=== PATIENT | male | born 1950 | race Caucasian/White ===

== ENCOUNTER 2016-02-08 17:17 | Inpatient (IN) | payer MEDICARE, BC ==
--- NOTE | 2016-02-08 18:03 | ED ---
General Adult HPI - General Chief complaint: Weakness Stated complaint: Weakness Time Seen by Provider: 02/08/16 17:20 Source: EMS, RN notes reviewed Mode of arrival: EMS Limitations: no limitations - History of Present Illness Initial comments: This is a 65-year-old male who has a past medical history significant for prosthetic leg on the left and irritation of the toes on the right he also has a history of renal failure and is on dialysis. Patient states This morning went to dialysis and after he got out of dialysis he was unable to stand he felt so weak he couldn't get around. Patient denies headache patient denies any numbness or weakness focally. Patient denies any chest pain difficulty breathing or shortness of breath per patient denies any dizziness lightheadedness or near syncopal episode. Patient denies any abdominal pain patient denies any nausea vomiting or diarrhea. Patient denies any recent injury or trauma. Patient states he does have a wound on the posterior aspect of his heel and he was going to the wound center but he has not been able to follow-up with them recently. Patient states it is swelling quite gamy. - Related Data Home Medications Medication Instructions Recorded Confirmed Furosemide 40 mg PO BID 02/18/14 02/08/16 Lisinopril 5 mg PO DAILY 02/18/14 02/08/16 HYDROcodone/APAP 5-325MG [[place] 1 tab PO BID PRN 02/08/16 02/08/16 5-325] Metoprolol Tartrate [Lopressor] 25 mg PO DAILY 02/08/16 02/08/16 Allergies Allergy/AdvReac Type Severity Reaction Status Date / Time No Known Allergies Allergy Verified 02/08/16 17:39 Review of Systems ROS Statement: Those systems with pertinent positive or pertinent negative responses have been documented in the HPI. ROS Other: All systems not noted in ROS Statement are negative. Past Medical History Past Medical History: Diabetes Mellitus, Dialysis, Hypertension, Liver Disease, Renal Disease, Vascular Disorder Additional Past Medical History / Comment(s): Other HX: Hemodialysis. 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 History of Any Multi-Drug Resistant Organisms: None Reported Past Surgical History: Adenoidectomy, Orthopedic Surgery, Tonsillectomy Additional Past Surgical History / Comment(s): L BKA, R foot toes all amputated by Dr. Dee. Fistula L forearm for hemodialysis Past Anesthesia/Blood Transfusion Reactions: No Reported Reaction Past Psychological History: No Psychological Hx Reported Additional Psychological History / Comment(s): Pt lives alone in home. He has a L lower leg prosthesis. Smoking Status: Never smoker Past Alcohol Use History: None Reported Past Drug Use History: None Reported - Past Family History Father Family Medical History: Coronary Artery Disease (CAD) Additional Family Medical History / Comment(s): Father is . He lived to the age of 90 yrs. Mother Family Medical History: No Reported History Additional Family Medical History / Comment(s): Mother is . She lived to the age of 87 yrs. General Exam - General Exam Comments Initial Comments: GENERAL: Patient is well-developed and well-nourished. Patient is nontoxic and well- hydrated and is in no acute distress. ENT: Neck is soft and supple. No significant lymphadenopathy is noted. Oropharynx is clear. Moist mucous membranes. Neck has full range of motion without eliciting any pain. EYES: The sclera were anicteric and conjunctiva were pink and moist. Extraocular movements were intact and pupils were equal round and reactive to light. Eyelids were unremarkable. PULMONARY: Unlabored respirations. Good breath sounds bilaterally. No audible rales rhonchi or wheezing was noted. CARDIOVASCULAR: There is a regular rate and rhythm without any murmurs gallops or rubs. ABDOMEN: Soft and nontender with normal bowel sounds. No palpable organomegaly was noted. There is no palpable pulsatile mass. SKIN: Skin is clear with no lesions or rashes and otherwise unremarkable. NEUROLOGIC: Patient is alert and oriented x3. Cranial nerves II through XII are grossly intact. Motor and sensory are also intact. Normal speech, volume and content. Symmetrical smile. MUSCULOSKELETAL: Patient has a prosthetic left leg and has no dose on the right foot. Patient also has a decubitus wound on the right heel which appears to have necrotic tissue in it as well as erythema around it. LYMPHATICS: No significant lymphadenopathy is noted PSYCHIATRIC: Normal psychiatric evaluation. Normal interpersonal interactions appears functionally intact in deals appropriately with others. Limitations: no limitations Course Vital Signs 02/08/16 02/08/16 17:18 19:32 Temperature 99.1 F Pulse Rate 83 79 Respiratory 18 18 Rate Blood Pressure 160/82 151/82 O2 Sat by Pulse 95 97 Oximetry Medical Decision Making - Medical Decision Making EKG shows atrial fibrillation at 79 bpm QRS is 166 QT intervals 446 QTC is 511. Patient has left bundle branch block Started patient on vancomycin because the wound appeared necrotic with some associated cellulitis. X-ray did not show any indication of a osteomyelitis I spoke with Dr. Tan and he agreed to accept the patient admitted the patient wrote admitting orders continue vancomycin for - Lab Data Result diagrams: 02/08/16 18:17 02/08/16 18:17 Lab Results 02/08/16 02/08/16 02/08/16 Range/Units 18:03 18:17 18:17 WBC 6.7 (3.8-10.6) k/uL RBC 3.48 L (4.30-5.90) m/uL Hgb 10.7 L (13.0-17.5) gm/dL Hct 32.5 L (39.0-53.0) % MCV 93.2 (80.0-100.0) fL MCH 30.7 (25.0-35.0) pg MCHC 32.9 (31.0-37.0) g/dL RDW 13.2 (11.5-15.5) % Plt Count 173 (150-450) k/uL Neutrophils % 86 % Lymphocytes % 6 % Monocytes % 6 % Eosinophils % 1 % Basophils % 0 % Neutrophils # 5.8 (1.3-7.7) k/uL Lymphocytes # 0.4 L (1.0-4.8) k/uL Monocytes # 0.4 (0-1.0) k/uL Eosinophils # 0.1 (0-0.7) k/uL Basophils # 0.0 (0-0.2) k/uL PT (9.0-12.0) sec INR (<1.1) APTT (22.0-30.0) sec Sodium (137-145) mmol/L Potassium (3.5-5.1) mmol/L Chloride (98-107) mmol/L Carbon Dioxide (22-30) mmol/L Anion Gap mmol/L BUN (9-20) mg/dL Creatinine (0.66-1.25) mg/dL Est GFR (MDRD) Af Amer (>60 ml/min/1.73 sqM) Est GFR (MDRD) Non-Af (>60 ml/min/1.73 sqM) Glucose (74-99) mg/dL POC Glucose (mg/dL) 142 H (75-99) mg/dL POC Glu Back Facer ID Branch, Alexander Plasma Lactic Acid Justice (0.7-2.0) mmol/L Calcium (8.4-10.2) mg/dL Magnesium (1.6-2.3) mg/dL Total Bilirubin (0.2-1.3) mg/dL AST (17-59) U/L ALT (21-72) U/L Alkaline Phosphatase (38-126) U/L Total Creatine Kinase 44 L (55-170) U/L CK-MB (CK-2) 1.3 (0.0-2.4) ng/mL CK-MB (CK-2) Rel Index 3.0 Troponin I 0.063 H* (0.000-0.034) ng/mL Total Protein (6.3-8.2) g/dL Albumin (3.5-5.0) g/dL 02/08/16 02/08/16 02/08/16 Range/Units 18:17 18:17 18:17 WBC (3.8-10.6) k/uL RBC (4.30-5.90) m/uL Hgb (13.0-17.5) gm/dL Hct (39.0-53.0) % MCV (80.0-100.0) fL MCH (25.0-35.0) pg MCHC (31.0-37.0) g/dL RDW (11.5-15.5) % Plt Count (150-450) k/uL Neutrophils % % Lymphocytes % % Monocytes % % Eosinophils % % Basophils % % Neutrophils # (1.3-7.7) k/uL Lymphocytes # (1.0-4.8) k/uL Monocytes # (0-1.0) k/uL Eosinophils # (0-0.7) k/uL Basophils # (0-0.2) k/uL PT 13.8 H (9.0-12.0) sec INR 1.4 (<1.1) APTT 27.2 (22.0-30.0) sec Sodium 137 (137-145) mmol/L Potassium 3.2 L (3.5-5.1) mmol/L Chloride 95 L (98-107) mmol/L Carbon Dioxide 29 (22-30) mmol/L Anion Gap 13 mmol/L BUN 18 (9-20) mg/dL Creatinine 3.63 H (0.66-1.25) mg/dL Est GFR (MDRD) Af Amer 21 (>60 ml/min/1.73 sqM) Est GFR (MDRD) Non-Af 17 (>60 ml/min/1.73 sqM) Glucose 156 H (74-99) mg/dL POC Glucose (mg/dL) (75-99) mg/dL POC Glu Back Facer ID Plasma Lactic Acid Justice 3.6 H* (0.7-2.0) mmol/L Calcium 9.2 (8.4-10.2) mg/dL Magnesium 1.9 (1.6-2.3) mg/dL Total Bilirubin 1.2 (0.2-1.3) mg/dL AST 22 (17-59) U/L ALT 24 (21-72) U/L Alkaline Phosphatase 139 H (38-126) U/L Total Creatine Kinase (55-170) U/L CK-MB (CK-2) (0.0-2.4) ng/mL CK-MB (CK-2) Rel Index Troponin I (0.000-0.034) ng/mL Total Protein 6.6 (6.3-8.2) g/dL Albumin 3.2 L (3.5-5.0) g/dL Disposition Clinical Impression: Generalized weakness, Infected decubitus ulcer, Chronic renal failure Disposition: ADMITTED IP TO THIS HOSP Referrals: Chiquis Leyva MD [Primary Care Provider] - 1-2 days Time of Disposition: 20:28
[2016-02-08 18:05] LABS: Glucose,Whole Blood 142 mg/dL (75-99)
--- NOTE | 2016-02-08 18:46 | XR ---
EXAMINATION TYPE: XR chest 2V DATE OF EXAM: 02/08/2016 6:37 PM COMPARISON: 03/17/2015 HISTORY: Cough and weakness TECHNIQUE: Frontal and lateral views of the chest are obtained. FINDINGS: There is opacification of the right lower hemithorax consistent with consolidation and ple ural fluid. There is mild pulmonary congestion. There is a right central venous catheter with tip in the superior vena cava. Left lung is clear of consolidation. Heart appears enlarged. IMPRESSION: There is chronic right pleural effusion and right lower lobe consolidation that is sligh tly worse than last exam. There is probably mild heart failure. Pulmonary vascularity is increased co mpared to last exam.
--- NOTE | 2016-02-08 18:48 | XR ---
EXAMINATION TYPE: XR foot complete RT DATE OF EXAM: 02/08/2016 6:37 PM COMPARISON: 09/07/2010 HISTORY: Foot pain nonhealing wounds TECHNIQUE: 3 views FINDINGS: There is amputation deformity of all of the digits at the level of the mid shaft of the met atarsals. There is atherosclerotic vascular calcification. There are plantar and Achilles calcaneal s purs. I see no focal bone destruction. IMPRESSION: Multiple amputations. No specific evidence of osteomyelitis. Significant calcaneal spurri ng.
[2016-02-08 18:59] LABS: Basophils % (A) 0 %; CHCM 33.4; Eosinophils # (A) 0.1 k/uL (0-0.7); Eosinophils % (A) 1 %; HCT 32.5 % (39.0-53.0); HDW 2.24; HGB 10.7 gm/dL (13.0-17.5); Luc # (Auto) 0.08; Luc % (Auto) 1; Lymphocytes # (A) 0.4 k/uL (1.0-4.8); Lymphocytes % (A) 6 %; MCH 30.7 pg (25.0-35.0); MCHC 32.9 g/dL (31.0-37.0); MCV 93.2 fL (80.0-100.0); Mean Platelet Volume 8.2; Monocytes # (A) 0.4 k/uL (0-1.0); Monocytes % (A) 6 %; Neutrophils # (A) 5.8 k/uL (1.3-7.7); Neutrophils % (A) 86 %; RBC 3.48 m/uL (4.30-5.90); RDW 13.2 % (11.5-15.5); WBC 6.7 k/uL (3.8-10.6); WBC (Perox) 7.02
[2016-02-08 19:08] LABS: INR 1.4 (<1.1); Partial Thromboplastin Time 27.2 sec (22.0-30.0); Prothrombin Time 13.8 sec (9.0-12.0)
[2016-02-08 19:11] LABS: Calcium 9.2 mg/dL (8.4-10.2); Magnesium 1.9 mg/dL (1.6-2.3); Potassium 3.2 mmol/L (3.5-5.1); Total Bilirubin 1.2 mg/dL (0.2-1.3); Total Protein 6.6 g/dL (6.3-8.2)
[2016-02-08 19:41] LABS: Creatine Kinase MB 1.3 ng/mL (0.0-2.4)
[2016-02-08 19:50] LABS: Troponin I 0.063 ng/mL (0.000-0.034)
[2016-02-08] MEDS ORDERED: SODIUM CHLORIDE 0.9% 1,000 ML IV ONE (20:29)
[2016-02-08] MEDS ORDERED: IV VANCOMYCIN PER PHARMACY 1 EACH MISC MISCELLANE PRN (20:32)
[2016-02-08] MEDS ORDERED: VANCOMYCIN 1,500 MG in SODIUM CHLORIDE 0.9% 250 ML IVPB STA (20:33)
[2016-02-08] MEDS ORDERED: SODIUM CHLORIDE 0.9% 500 ML IV ONE (20:34)
[2016-02-08 22:59] LABS: Glucose,Whole Blood 109 mg/dL (75-99)
[2016-02-09] MEDS ORDERED: HYDROcodone/APAP 5-325MG 1 EACH TAB PO PRN (02:58)
[2016-02-09 07:09] LABS: Glucose,Whole Blood 135 mg/dL (75-99)
[2016-02-09 07:50] LABS: Basophils % (A) 1 %; CH 30.6; CHCM 31.8; Eosinophils % (A) 1 %; HDW 2.18; HGB 10.4 gm/dL (13.0-17.5); Luc # (Auto) 0.07; Luc % (Auto) 1; Lymphocytes # (A) 0.4 k/uL (1.0-4.8); Lymphocytes % (A) 6 %; MCH 29.5 pg (25.0-35.0); MCHC 30.4 g/dL (31.0-37.0); MCV 96.9 fL (80.0-100.0); Mean Platelet Volume 8.3; Monocytes # (A) 0.5 k/uL (0-1.0); Monocytes % (A) 7 %; Neutrophils # (A) 5.4 k/uL (1.3-7.7); Neutrophils % (A) 85 %; RBC 3.51 m/uL (4.30-5.90); RDW 13.2 % (11.5-15.5); WBC 6.4 k/uL (3.8-10.6); WBC (Perox) 6.83
[2016-02-09 08:09] LABS: Calcium 9.1 mg/dL (8.4-10.2); Potassium 3.2 mmol/L (3.5-5.1)
[2016-02-09] MEDS: INSULIN LISPRO (humaLOG) 300 UNIT/3 ML VIAL SQ SCH ×4 (08:15→21:51)
[2016-02-09 08:29] LABS: Hemoglobin A1C 5.7 % (4.2-6.1)
[2016-02-09] MEDS ORDERED: POTASSIUM CHLORIDE ER 20 MEQ TAB.ER PO STA (09:51)
--- NOTE | 2016-02-09 10:33 | P.NPCON ---
History of Present Illness - Reason for Consult end stage renal disease - History of Present Illness Reason for consultation: End-stage renal disease History of present illness: Patient is a 65-year-old male seen in renal consultation for end- stage renal disease. He is maintained on hemodialysis on a Sunday schedule. He underwent hemodialysis yesterday. After the treatment he felt quite weak and states his legs gave out. He was therefore brought to the hospital. He denies any chest pain or shortness of breath. He is noted to have a right heel ulcer for which she's currently receiving antibiotics. He denies any vomiting or diarrhea. Appetite is fair. Hemoglobin is stable. Hemodynamically also stable. Denies any active complaints at this time. Vital signs are stable. General: The patient appeared well nourished and normally developed. HEENT: Head exam is unremarkable. Neck is without jugular venous distension. LUNGS: Lungs are clear to auscultation and percussion. Breath sounds decreased. HEART: Rate and Rhythm are regular. First and second heart sounds normal. No murmurs, rubs or gallops. ABDOMEN: Abdominal exam reveals normal bowel sounds. Non-tender and non- distended. No evidence of peritonitis. EXTREMITITES: No clubbing, cyanosis, or edema. Amputation noted. No obvious drainage. Past Medical History Past Medical History: Diabetes Mellitus, Dialysis, Hypertension, Liver Disease, Renal Disease, Vascular Disorder Additional Past Medical History / Comment(s): Other HX: Hemodialysis. 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 History of Any Multi-Drug Resistant Organisms: None Reported Past Surgical History: Adenoidectomy, Orthopedic Surgery, Tonsillectomy Additional Past Surgical History / Comment(s): L BKA, R foot toes all amputated by Dr. Dee. Fistula L forearm for hemodialysis Past Anesthesia/Blood Transfusion Reactions: No Reported Reaction Past Psychological History: No Psychological Hx Reported Additional Psychological History / Comment(s): Pt lives alone in home. He has a L lower leg prosthesis. Smoking Status: Never smoker Past Alcohol Use History: None Reported Past Drug Use History: None Reported - Past Family History Father Family Medical History: Coronary Artery Disease (CAD) Additional Family Medical History / Comment(s): Father is . He lived to the age of 90 yrs. Mother Family Medical History: No Reported History Additional Family Medical History / Comment(s): Mother is . She lived to the age of 87 yrs. Medications and Allergies Home Medications Medication Instructions Recorded Confirmed Type Furosemide 40 mg PO BID 02/18/14 02/08/16 History Lisinopril 5 mg PO DAILY 02/18/14 02/08/16 History HYDROcodone/APAP 5-325MG [[place] 1 tab PO BID PRN 02/08/16 02/08/16 History 5-325] Metoprolol Tartrate [Lopressor] 25 mg PO DAILY 02/08/16 02/08/16 History Allergies Allergy/AdvReac Type Severity Reaction Status Date / Time No Known Allergies Allergy Verified 02/08/16 17:39 Physical Exam Vitals: Vital Signs Temp Pulse Pulse Resp BP BP Pulse Ox 02/09/16 07:12 95 02/09/16 07:00 97.0 F L 80 20 127/71 94 L 02/08/16 22:45 97.9 F 74 16 138/81 96 02/08/16 21:21 98.9 F 76 18 143/70 95 Intake and Output 02/08/16 02/09/16 02/09/16 22:59 06:59 14:59 Intake Total 1500 120 Balance 1500 120 Intake: IV 1500 Vancomycin 1,500 mg In 1500 Sodium Chloride 0.9% 250 ml @ 125 mls/hr IVPB ONCE STA Rx#:[id number] Oral 120 Other: # Voids 0 # Bowel Movements 0 Weight 83.007 kg Results - Lab Results Most recent lab results Calcium 9.1 mg/dL (8.4-10.2) 02/09/16 07:13 Magnesium 1.9 mg/dL (1.6-2.3) 02/08/16 18:17 02/09/16 07:13 02/09/16 07:13 Assessment and Plan Plan: Assessment: #1. End-stage renal disease maintained on hemodialysis on a Sunday schedule. #2. Hypokalemia. #3. Right foot ulcer. #4. Anemia of chronic kidney disease. Plan: Hemodialysis tomorrow. Replace potassium. 20 mg once today. Check phosphorus level. Nephrocaps daily. Antibiotics per infectious disease recommendations. . I will continue to follow the patient with you during his hospital stay.
[2016-02-09] MEDS: FOLIC ACID-VIT B COMPLEX-VIT C 1 CAP PO SCH (10:46)
[2016-02-09 12:34] LABS: Glucose,Whole Blood 123 mg/dL (75-99)
[2016-02-09] MEDS ORDERED: FUROSEMIDE 10 MG/ML 4 ML VIAL IV STA (13:48)
[2016-02-09] MEDS ORDERED: FUROSEMIDE 10 MG/ML 10 ML VIAL IV STA (13:48)
[2016-02-09 16:54] LABS: Glucose,Whole Blood 186 mg/dL (75-99)
[2016-02-09] MEDS ORDERED: CALCIUM CARBONATE 500 MG CHEWABLE PO PRN (17:37)
[2016-02-09] MEDS: FUROSEMIDE 40 MG TAB PO SCH (17:48)
[2016-02-09] MEDS: CALCIUM CARBONATE 500 MG CHEWABLE PO PRN (18:07)
[2016-02-09] MEDS: METOPROLOL TARTRATE 25 MG TAB PO SCH (20:01)
[2016-02-09] MEDS: LISINOPRIL 5 MG TAB PO SCH (20:01)
[2016-02-09] MEDS ORDERED: AMPICILLIN-SULBACTAM 1.5 GM in SODIUM CHLORIDE 0.9% 50 ML IVPB SCH (21:00)
--- NOTE | 2016-02-09 21:04 | HP ---
DATE OF ADMISSION: 02/09/2016 The patient is a 65-year-old with endstage renal disease on hemodialysis, was brought in by his because the patient is feeling quite weak and the patient was found to have pulmonary edema on the chest x-ray. The patient has an ejection fraction of 30% to 35%. The patient is on 40 of IV oral b.i.d. of Lasix. Still makes urine. The patient has end stage renal disease, hemodialysis-dependent. Patient was evaluated by Dr. Coffman ). The patient was actually admitted because the patient was found to have right foot infection. Patient has midfoot amputation. The patient has an ulcer about stage 3 to 4 decubitus ulcer. Foot x-ray did not show any osteomyelitis. The patient was admitted for foot infection. Patient has had diabetic foot infections in the past. Patient has a left below-knee amputation and right midfoot amputation. The patient normally ambulates with a prostheses on the right side. Patient denied any chest pain. Patient denied any nausea or vomiting. Patient denied any fevers or chills. Patient denied any significant shortness of breath. Denied orthopnea or PND, although chest x-ray, as mentioned above, did show a significant pulmonary edema. Denied any lightheadedness. REVIEW OF SYSTEMS: CONSTITUTIONAL: As per HPI. HEENT: No recent visual problems or hearing problems. Denied any sore throat. CARDIOVASCULAR: No chest pain, orthopnea, PND, no palpitations, no syncope. PULMONARY: No shortness of breath, no cough, no hemoptysis. GASTROINTESTINAL: No diarrhea, no nausea, no vomiting, no abdominal pain. Normoactive bowel sounds. NEUROLOGICAL: No headaches, no weakness, no numbness. HEMATOLOGICAL: Denies any bleeding or petechiae. GENITOURINARY: Denies any burning micturition, frequency, or urgency. MUSCULOSKELETAL/RHEUMATOLOGICAL: Denies any joint pain, swelling, or any muscle pain. ENDOCRINE: Denies any polyuria or polydipsia. The rest of the 14 point review of systems is negative. Home medications include: 1. Lasix. 2. Lisinopril. 3. Hydrocodone. 4. Acetaminophen. 5. Metoprolol. PAST MEDICAL HISTORY: Type 2 diabetes mellitus, diabetic nephropathy, endstage renal disease, hemodialysis-dependent, congestive heart failure, chronic systolic dysfunction with ejection fraction around 30% to 35%, hypertension, peripheral vascular disease with left below-knee amputation and right midfoot amputation, fistula in the left arm, adenoidectomy, ( ) surgery, tonsillectomy. SOCIAL HISTORY: Denies smoking, alcohol abuse or any drug abuse. FAMILY HISTORY: Father had coronary artery disease and at age 90. Mother had no reported history. PHYSICAL EXAMINATION: Temperature 97.9, pulse ox 93, respiratory rate of 24, blood pressure is 138/78, saturating at 93% on room air. CARDIOVASCULAR: S1 and S2 present. Patient has minimally elevated JVD. LUNGS: Bibasilar crackles were appreciated. No wheezing was appreciated. DERMATOLOGIC: The patient has stage 3 to 4 decubitus ulcer in the right heel plantar surface area with redness and foul-smelling discharge for which wound cultures were obtained, with redness extending proximally and distally as well a few centimeters proximal and distal, with localized temperature. NEUROLOGICAL: Gross neurological examination. Did not reveal any focal deficits. SKIN: No rashes. LABORATORY DATA: CBC abnormal for mildly low hemoglobin of 10.4, normocytic anemia, probably anemia of chronic kidney disease. Potassium of 3.2, chloride of 96, BUN of 21, creatinine 4.4. Troponins are mildly elevated at 0.063 and 0.087, secondary to endstage renal disease without any chest pain or any significant EKG changes. ASSESSMENT AND PLAN: 1. Generalized weakness and fatigue is probably because of infection and sepsis from right foot infection as mentioned above. 2. Decubitus ulcer which appears to be infected and patient is on vancomycin. May need gram-negative as well. Patient is already on vancomycin. I added Unasyn to his regimen with the pharmacy to dose. Wound cultures are actually showing gram-negative bacilli as well. Infectious disease was consulted. 3. Endstage renal disease, hemodialysis-dependent. 4. Congestive heart failure, chronic systolic dysfunction, ejection fraction of around 35% with a mild acute exacerbation. Will give an additional dose of Lasix and patient will continue with his home dose of Lasix. We will also get nephrology opinion regarding that. 5. Diabetes mellitus type 2. 6. Diabetic nephropathy and neuropathy. 7. Peripheral vascular disease with amputations as mentioned above. 8. Hypertension. For above-mentioned chronic medical problems, I will go ahead and continue his home medications including lisinopril. For mild hypokalemia, let nephrology manage that since he is an end-stage renal disease patient.
[2016-02-09 21:51] LABS: Glucose,Whole Blood 74 mg/dL (75-99)
--- NOTE | 2016-02-09 22:07 | P.CONS ---
History of Present Illness - Reason for Consult Consult date: 02/09/16 - Chief Complaint Right foot infection - History of Present Illness 65-year-old male who has a complex medical history including end- stage renal disease with diabetes mellitus type 2 and severe peripheral vascular disease. 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 He's been followed in the outpatient setting in the wound healing center with podiatry and vascular surgery. He now has a marked worsening to the right foot at the heel. There is been a dry gangrenous area that is now much worse, it is malodorous, with swelling and extension of the erythema and fluctuance around the eschar. The patient is ill. Did not tolerate dialysis well. Developed fever, chills and rigors. Also some hypotension and was brought into hospital. Because of the significant infection to the right foot the infectious diseases consultation was requested The patient has had recent chills and is feeling slightly better. Has not been able to eat. Review of Systems HEENT:Denies headache or has poor vision. Denies sinus or mouth discomforts. Denies neck stiffness or pain. Denies significant oral cavity pain. Denies difficulty on swallowing. Lungs: Denies significant shortness of breath, cough, sputum production, or hemoptysis. Cardiovascular: Denies significant shortness of breath, chest pain, chest wall pain, orthopnea, dyspnea on exertion, syncope Gastrointestinal:Denies nausea, vomiting, diarrhea, constipation, hematemesis, melena, hematochezia. No no significant change of bowel habit noticed. Musculoskeletal: Is evidence of the difficulty with the multiple ulcers but the residual limb to the left was without acute abnormality Skin: As per the HPI Neuro: Denies headache or visual change. Denies any new onset weakness or difficulty with ambulation. Denies falls or seizures. Psychiatric:Denies anxiety or depression. Endocrine: Increasing fatigue and has been having difficulties with weight loss despite his dialysis Past Medical History Past Medical History: Diabetes Mellitus, Dialysis, Hypertension, Liver Disease, Renal Disease, Vascular Disorder Additional Past Medical History / Comment(s): Other HX: Hemodialysis. 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 History of Any Multi-Drug Resistant Organisms: None Reported Past Surgical History: Adenoidectomy, Orthopedic Surgery, Tonsillectomy Additional Past Surgical History / Comment(s): L BKA, R foot toes all amputated by Dr. Dee. Fistula L forearm for hemodialysis Past Anesthesia/Blood Transfusion Reactions: No Reported Reaction Past Psychological History: No Psychological Hx Reported Additional Psychological History / Comment(s): Pt lives alone in home. He has a L lower leg prosthesis. Smoking Status: Never smoker Past Alcohol Use History: None Reported Past Drug Use History: None Reported - Past Family History Father Family Medical History: Coronary Artery Disease (CAD) Additional Family Medical History / Comment(s): Father is . He lived to the age of 90 yrs. Mother Family Medical History: No Reported History Additional Family Medical History / Comment(s): Mother is . She lived to the age of 87 yrs. Medications and Allergies Home Medications and Allergies Comment(s): Current Medications Acetaminophen/Hydrocodone Bitart ([place] 5-325) 1 each PO BID PRN PRN Reason: Pain Calcium Carbonate/Glycine (Tums) 1,000 mg PO TID PRN PRN Reason: Heartburn Last Admin: 02/09/16 18:07 Dose: 1,000 mg Furosemide (Lasix) 40 mg PO BID@0900,1600 [facility] Last Admin: 02/09/16 17:48 Dose: 40 mg Vancomycin HCl 1,500 mg/ (Sodium Chloride) 250 mls @ 125 mls/hr IVPB ONCE ONE Stop: 02/10/16 07:59 Ampicillin Sodium/Sulbactam (Sodium 1.5 gm/ Sodium Chloride) 50 mls @ 100 mls/ hr IVPB Q12HR [facility] Last Admin: 02/09/16 19:58 Dose: 100 mls/hr Insulin Human Lispro (Humalog) 0 unit SQ ACHS [facility] PRN Reason: Protocol Last Admin: 02/09/16 21:51 Dose: Not Given Lisinopril (Zestril) 5 mg PO [facility] Last Admin: 02/09/16 20:01 Dose: 5 mg Metoprolol Tartrate (Lopressor) 25 mg PO [facility] Last Admin: 02/09/16 20:01 Dose: 25 mg Miscellaneous Information (Pharmacy To Dose Iv Vancomycin) 1 each MISCELLANE DIRECTED PRN PRN Reason: Per Protocol Multivit/Ca Carb/B Cmplx/FA/Prenat (Nephrocaps) 1 each PO DAILY [facility] Last Admin: 02/09/16 10:46 Dose: 1 each Home Medications Medication Instructions Recorded Confirmed Type Furosemide 40 mg PO BID 02/18/14 02/08/16 History Lisinopril 5 mg PO DAILY 02/18/14 02/08/16 History HYDROcodone/APAP 5-325MG [[place] 1 tab PO BID PRN 02/08/16 02/08/16 History 5-325] Metoprolol Tartrate [Lopressor] 25 mg PO DAILY 02/08/16 02/08/16 History Allergies Allergy/AdvReac Type Severity Reaction Status Date / Time No Known Allergies Allergy Verified 02/08/16 17:39 Physical Exam Vitals: Vital Signs Temp Pulse Resp BP Pulse Ox 02/09/16 15:00 97.9 F 73 24 138/78 93 L 02/09/16 07:12 95 02/09/16 07:00 97.0 F L 80 20 127/71 94 L 02/08/16 22:45 97.9 F 74 16 138/81 96 Intake and Output 02/09/16 02/09/16 02/09/16 06:59 14:59 22:59 Intake Total 1500 240 Balance 1500 240 Intake: IV 1500 Vancomycin 1,500 mg In 1500 Sodium Chloride 0.9% 250 ml @ 125 mls/hr IVPB ONCE STA Rx#:[id number] Oral 240 Other: # Voids 0 # Bowel Movements 0 0 Weight 83.007 kg 83.007 kg Patient Weight 02/10/16 06:59 Weight 83.007 kg 65-year-old male of thin build who seems to be uncomfortable. Has had recent chill and fever. HEENT: Anicteric conjunctiva are pink and moist nasal mucosa grossly intact without significant lesions, there is no thrush. Full denture Neck: The neck is supple without significant lymphadenopathy or thyromegaly. Lungs: Symmetric air entry without expiratory wheezes no vicky bronchial sounds dialysis catheter right anterior chest wall noted Heart: Irregular with an audible S1 and S2 no S3 soft S4 no murmur click or rub Abdomen: Positive bowel sounds soft and nontender without palpable masses or organomegaly. There was no guarding or rebound. Extremities: Upper extremities since of the fistula left arm that isn't functioning well. Right arm without abnormalities. Left lower extremities shows evidence of the biliary amputation with residual limb intact. Right foot shows evidence of the marked changes to the foot at the heel there is distinct eschar there is distinct discoloration around the eschar there is foul odor and some induration and early fluctuance. No steady and drainage is seen. There is scant warmth to the site. Poor peripheral pulses Neuro: Awake alert oriented to person place and time. Results CBC & Chem 7: 02/09/16 07:13 02/09/16 07:13 Labs: Abnormal Lab Results - Last 24 Hours (Table) 02/08/16 02/09/16 02/09/16 Range/Units 22:38 07:06 07:13 RBC 3.51 L (4.30-5.90) m/uL Hgb 10.4 L (13.0-17.5) gm/dL Hct 34.0 L (39.0-53.0) % MCHC 30.4 L (31.0-37.0) g/dL Lymphocytes # 0.4 L (1.0-4.8) k/uL Potassium (3.5-5.1) mmol/L Chloride (98-107) mmol/L BUN (9-20) mg/dL Creatinine (0.66-1.25) mg/dL Glucose (74-99) mg/dL POC Glucose (mg/dL) 109 H 135 H (75-99) mg/dL Troponin I (0.000-0.034) ng/mL 02/09/16 02/09/16 02/09/16 Range/Units 07:13 07:13 12:30 RBC (4.30-5.90) m/uL Hgb (13.0-17.5) gm/dL Hct (39.0-53.0) % MCHC (31.0-37.0) g/dL Lymphocytes # (1.0-4.8) k/uL Potassium 3.2 L (3.5-5.1) mmol/L Chloride 96 L (98-107) mmol/L BUN 21 H (9-20) mg/dL Creatinine 4.40 H (0.66-1.25) mg/dL Glucose 144 H (74-99) mg/dL POC Glucose (mg/dL) 123 H (75-99) mg/dL Troponin I 0.087 H* (0.000-0.034) ng/mL 02/09/16 02/09/16 02/09/16 Range/Units 16:52 17:40 21:49 RBC (4.30-5.90) m/uL Hgb (13.0-17.5) gm/dL Hct (39.0-53.0) % MCHC (31.0-37.0) g/dL Lymphocytes # (1.0-4.8) k/uL Potassium (3.5-5.1) mmol/L Chloride (98-107) mmol/L BUN (9-20) mg/dL Creatinine (0.66-1.25) mg/dL Glucose (74-99) mg/dL POC Glucose (mg/dL) 186 H 74 L (75-99) mg/dL Troponin I 0.076 H* (0.000-0.034) ng/mL Laboratory Results WBC 6.4 k/uL (3.8-10.6) 02/09/16 07:13 RBC 3.51 m/uL (4.30-5.90) L 02/09/16 07:13 Hgb 10.4 gm/dL (13.0-17.5) L 02/09/16 07:13 Hct 34.0 % (39.0-53.0) L 02/09/16 07:13 MCV 96.9 fL (80.0-100.0) 02/09/16 07:13 MCH 29.5 pg (25.0-35.0) 02/09/16 07:13 MCHC 30.4 g/dL (31.0-37.0) L 02/09/16 07:13 RDW 13.2 % (11.5-15.5) 02/09/16 07:13 Plt Count 180 k/uL (150-450) 02/09/16 07:13 Neutrophils % 85 % 02/09/16 07:13 Lymphocytes % 6 % 02/09/16 07:13 Monocytes % 7 % 02/09/16 07:13 Eosinophils % 1 % 02/09/16 07:13 Basophils % 1 % 02/09/16 07:13 Neutrophils # 5.4 k/uL (1.3-7.7) 02/09/16 07:13 Lymphocytes # 0.4 k/uL (1.0-4.8) L 02/09/16 07:13 Monocytes # 0.5 k/uL (0-1.0) 02/09/16 07:13 Eosinophils # 0.0 k/uL (0-0.7) 02/09/16 07:13 Basophils # 0.0 k/uL (0-0.2) 02/09/16 07:13 PT 13.8 sec (9.0-12.0) H 02/08/16 18:17 INR 1.4 (<1.1) 02/08/16 18:17 APTT 27.2 sec (22.0-30.0) 02/08/16 18:17 Sodium 137 mmol/L (137-145) 02/09/16 07:13 Potassium 3.2 mmol/L (3.5-5.1) L 02/09/16 07:13 Chloride 96 mmol/L (98-107) L 02/09/16 07:13 Carbon Dioxide 28 mmol/L (22-30) 02/09/16 07:13 Anion Gap 13 mmol/L 02/09/16 07:13 BUN 21 mg/dL (9-20) H 02/09/16 07:13 Creatinine 4.40 mg/dL (0.66-1.25) H 02/09/16 07:13 Est GFR (MDRD) Af Amer 17 (>60 ml/min/1.73 sqM) 02/09/16 07:13 Est GFR (MDRD) Non-Af 14 (>60 ml/min/1.73 sqM) 02/09/16 07:13 Glucose 144 mg/dL (74-99) H 02/09/16 07:13 POC Glucose (mg/dL) 74 mg/dL (75-99) L 02/09/16 21:49 POC Glu Qualified Craft Worker Electrician ID Sosa Ang 02/09/16 21:[address] Glu mg/dL 117 mg/dL 02/09/16 07:13 Hemoglobin A1c 5.7 % (4.2-6.1) 02/09/16 07:13 Plasma Lactic Acid Justice 1.2 mmol/L (0.7-2.0) 02/09/16 01:06 Calcium 9.1 mg/dL (8.4-10.2) 02/09/16 07:13 Magnesium 1.9 mg/dL (1.6-2.3) 02/08/16 18:17 Total Bilirubin 1.2 mg/dL (0.2-1.3) 02/08/16 18:17 AST 22 U/L (17-59) 02/08/16 18:17 ALT 24 U/L (21-72) 02/08/16 18:17 Alkaline Phosphatase 139 U/L (38-126) H 02/08/16 18:17 Total Creatine Kinase 44 U/L (55-170) L 02/08/16 18:17 CK-MB (CK-2) 1.3 ng/mL (0.0-2.4) 02/08/16 18:17 CK-MB (CK-2) Rel Index 3.0 02/08/16 18:17 Troponin I 0.076 ng/mL (0.000-0.034) H* 02/09/16 17:40 Total Protein 6.6 g/dL (6.3-8.2) 02/08/16 18:17 Albumin 3.2 g/dL (3.5-5.0) L 02/08/16 18:17 Microbiology 02/08/16 18:17 Blood Blood Culture - Preliminary No Growth after 24 hours 02/08/16 18:17 Heel - Right Gram Stain - Preliminary 02/08/16 18:17 Heel - Right Wound Culture - Preliminary Gram Neg Bacilli 02/08/16 18:17 Blood Blood Culture Gram Stain - Preliminary Assessment and Plan (1) 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 Given following the wound healing center because been quite some time since he's been there. She's had difficulty with transportation. He would became somewhat ill at dialysis yesterday and is now much more ill. Is evidence of sepsis with the infection from the right foot. There is evidence of bacteremia as well as evidence of gram-negative bacilli from the wound. Vancomycin is being dosed by the pharmacy services. Unasyn was started but will be changed piperacillin tazobactam given the fact that gram-negative bacilli has been seen no be concerned to pseudomonas or other more resistant gram-negative organisms given his history especially dialysis. Continue ongoing local wound care to the site at this time till be a nonstick dressing and bulky dressing to absorb any drainage and to pad the area. We'll also observe odor. Vascular surgery consult with Dr. Dee was requested given he's been following with the outpatient setting. Prognosis foot is very poor. Status: Acute (2) Chronic renal failure Status: Acute (3) Type 2 diabetes mellitus with foot ulcer and gangrene Status: Acute
[2016-02-09] MEDS: PIPERACILLIN-TAZOBACTAM 3.375 GM in DEXTROSE/WATER 1 50ML.BAG IVPB SCH (22:36)
[2016-02-10] MEDS ORDERED: VANCOMYCIN 1,500 MG in SODIUM CHLORIDE 0.9% 250 ML IVPB ONE (06:00)
[2016-02-10] MEDS: HYDROcodone/APAP 5-325MG 1 EACH TAB PO PRN (06:10)
[2016-02-10 07:08] LABS: Glucose,Whole Blood 126 mg/dL (75-99)
[2016-02-10] MEDS: INSULIN LISPRO (humaLOG) 300 UNIT/3 ML VIAL SQ SCH ×4 (08:10→21:28)
[2016-02-10] MEDS: FOLIC ACID-VIT B COMPLEX-VIT C 1 CAP PO SCH ×2 (08:27→08:31)
[2016-02-10] MEDS: PIPERACILLIN-TAZOBACTAM 3.375 GM in DEXTROSE/WATER 1 50ML.BAG IVPB SCH ×2 (08:27→20:23)
[2016-02-10] MEDS: FUROSEMIDE 40 MG TAB PO SCH ×2 (08:27→18:19)
[2016-02-10] MEDS ORDERED: LISINOPRIL 5 MG TAB PO SCH (09:00)
[2016-02-10] MEDS ORDERED: METOPROLOL TARTRATE 25 MG TAB PO SCH (09:00)
[2016-02-10 09:20] LABS: Calcium 9.2 mg/dL (8.4-10.2); Phosphorous 4.1 mg/dL (2.5-4.5); Potassium 3.6 mmol/L (3.5-5.1)
--- NOTE | 2016-02-10 10:31 | P.PN ---
Subjective Principal diagnosis: ESRD Patient is seen in follow-up for end-stage renal disease. He is maintained on hemodialysis on a Sunday schedule. He presented to the hospital with weakness and is noted to have a right heel ulceration. Currently maintained on antibiotics. Appetite is good. No vomiting or diarrhea. Denies any chest pain or shortness of breath. Vital signs are stable. General: The patient appeared well nourished and normally developed. HEENT: Head exam is unremarkable. Neck is without jugular venous distension. LUNGS: Lungs are clear to auscultation and percussion. Breath sounds decreased. HEART: Rate and Rhythm are regular. First and second heart sounds normal. No murmurs, rubs or gallops. ABDOMEN: Abdominal exam reveals normal bowel sounds. Non-tender and non- distended. No evidence of peritonitis. EXTREMITITES: No clubbing, cyanosis, or edema. Amputation noted. No obvious drainage from wound dressing. Objective - Vital Signs Vital signs: Vital Signs Temp 96.1 F L 02/10/16 07:00 Pulse 66 02/10/16 07:00 Resp 20 02/10/16 07:00 BP 140/77 02/10/16 07:00 Pulse Ox 96 02/10/16 08:02 Intake & Output 02/09/16 02/10/16 02/10/16 18:59 06:59 18:59 Intake Total 240 300 Balance 240 300 Weight 83.007 kg 81 kg Intake: Oral 240 300 Other: # Voids 0 # Bowel Movements 0 - Labs CBC & Chem 7: 02/09/16 07:13 02/10/16 08:17 Labs: Abnormal Lab Results - Last 24 Hours (Table) 02/09/16 02/09/16 02/09/16 Range/Units 12:30 16:52 17:40 Chloride (98-107) mmol/L BUN (9-20) mg/dL Creatinine (0.66-1.25) mg/dL Glucose (74-99) mg/dL POC Glucose (mg/dL) 123 H 186 H (75-99) mg/dL Troponin I 0.076 H* (0.000-0.034) ng/mL 02/09/16 02/10/16 02/10/16 Range/Units 21:49 07:06 08:17 Chloride 94 L (98-107) mmol/L BUN 26 H (9-20) mg/dL Creatinine 5.73 H* (0.66-1.25) mg/dL Glucose 157 H (74-99) mg/dL POC Glucose (mg/dL) 74 L 126 H (75-99) mg/dL Troponin I (0.000-0.034) ng/mL Assessment and Plan Plan: Assessment: #1. End-stage renal disease maintained on hemodialysis on a Sunday schedule. #2. Hypokalemia. #3. Right foot ulcer. #4. Anemia of chronic kidney disease. Plan: Hemodialysis today with goal 2-1/2 L ultrafiltration. Nephrocaps daily. Antibiotics per infectious disease recommendations. Recommend discontinuing the chest permacath in view of high risk of infection. He has a functioning left upper extremity AV fistula.
[2016-02-10 11:43] LABS: Glucose,Whole Blood 177 mg/dL (75-99)
[2016-02-10] MEDS ORDERED: LIDOCAINE 1% INJ 10MG/ML (20 ML MDV) SQ ONE (11:45)
--- NOTE | 2016-02-10 12:25 | P.CON ---
Consult Note - . Consult date: 02/10/16 Assessment/Plan:: Vascular surgery consult: Reason for consult: Ischemic ulceration right foot History of chief complaint: This patient is status post left below-knee amputation for vascular issues. He is a long-standing diabetic. He has had a progressive eschar/ulceration on the posterior right heel. The patient is currently on dialysis and has had episodes of fever or chills and rigors. He has not tolerated dialysis well recently. Note: The patient has typically not been very compliant with therapy and follow- up. Physical examination: A rather ill looking 65-year-old gentleman in no acute distress but looking significantly older than his chronologic years. There are no pulses below the femoral on the right. There is edema in the right lower leg. He has dusky discoloration in the anterior part of the ankle and foot. He has a well-healed transmetatarsal amputation on that side. He has about a 10 x 7 cm dried eschar on the posterior aspect of the heel. Impression: Dry gangrene with ulceration right foot. Severe diffuse occlusive disease. Recommendation: This patient is a poor candidate for any type of intervention. His foot is a poor candidate for salvage under any circumstances at this time. I feel that amputation is his best option. He has seen Dr. Kumar for his dialysis access procedures. I will ask Dr. Kumar to see him in regards to potential amputation. Prognosis for foot and general health is poor.
[2016-02-10 15:19] LABS: Hepatitis B Surface Ag Index 0.06
[2016-02-10] MEDS ORDERED: GELATIN SPONGE,ABSORB (SMALL) 1 EACH SPONGE ONE (15:20)
[2016-02-10 15:24] LABS: Hepatitis B Core IgM Index 0.03
[2016-02-10 15:37] LABS: Hepatitis B Surface Antibody Negative (Negative)
--- NOTE | 2016-02-10 17:20 | P.GSCN ---
History of Present Illness History of present illness: 65 old white male, patient is known to me from the past for dialysis catheter placement and AV fistula in the left arm I was consulted for removal of the dialysis catheter which I have placed in the past patient has developed gangrene of the right heel with a dry eschar with foul smelling odor he had a transplant in the past which is well-healed he also had a left BK amputation in the past patient was under care of Dr. Dee This patient has a right IJ catheter which will be removed today he has a fistula in the left arm for dialysis Neck examination neck is supple no bruit appreciated Chest examination chest is clear few crackles at the lung bases first and second sound normal Abdomen soft nontender Vascular examination right femoral is 2+ popliteal posterior tibial dorsal pedal not palpable patient has a eschar right heel with the foul-smelling odor noted there is some swelling noted on the dorsal aspect of the foot Recommendation patient is a not a candidate for vascular intervention we will discuss with the patient most likely he will need a major amputation we will follow with you Past Medical History Past Medical History: Diabetes Mellitus, Dialysis, Hypertension, Liver Disease, Renal Disease, Vascular Disorder Additional Past Medical History / Comment(s): Other HX: Hemodialysis. 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 History of Any Multi-Drug Resistant Organisms: None Reported Past Surgical History: Adenoidectomy, Orthopedic Surgery, Tonsillectomy Additional Past Surgical History / Comment(s): L BKA, R foot toes all amputated by Dr. Dee. Fistula L forearm for hemodialysis Past Anesthesia/Blood Transfusion Reactions: No Reported Reaction Past Psychological History: No Psychological Hx Reported Additional Psychological History / Comment(s): Pt lives alone in home. He has a L lower leg prosthesis. Smoking Status: Never smoker Past Alcohol Use History: None Reported Past Drug Use History: None Reported - Past Family History Father Family Medical History: Coronary Artery Disease (CAD) Additional Family Medical History / Comment(s): Father is . He lived to the age of 90 yrs. Mother Family Medical History: No Reported History Additional Family Medical History / Comment(s): Mother is . She lived to the age of 87 yrs. Medications and Allergies Home Medications Medication Instructions Recorded Confirmed Type Furosemide 40 mg PO BID 02/18/14 02/08/16 History Lisinopril 5 mg PO DAILY 02/18/14 02/08/16 History HYDROcodone/APAP 5-325MG [[place] 1 tab PO BID PRN 02/08/16 02/08/16 History 5-325] Metoprolol Tartrate [Lopressor] 25 mg PO DAILY 02/08/16 02/08/16 History Allergies Allergy/AdvReac Type Severity Reaction Status Date / Time No Known Allergies Allergy Verified 02/08/16 17:39 Surgical - Exam Vital Signs Temp Pulse Resp BP Pulse Ox 99.1 F 83 18 160/82 95 02/08/16 17:18 02/08/16 17:18 02/08/16 17:18 02/08/16 17:18 02/08/16 17:18 Results - Labs 02/09/16 07:13 02/10/16 08:17 Abnormal Lab Results - Last 24 Hours (Table) 02/09/16 02/09/16 02/10/16 Range/Units 17:40 21:49 07:06 Chloride (98-107) mmol/L BUN (9-20) mg/dL Creatinine (0.66-1.25) mg/dL Glucose (74-99) mg/dL POC Glucose (mg/dL) 74 L 126 H (75-99) mg/dL Troponin I 0.076 H* (0.000-0.034) ng/mL 02/10/16 02/10/16 Range/Units 08:17 11:38 Chloride 94 L (98-107) mmol/L BUN 26 H (9-20) mg/dL Creatinine 5.73 H* (0.66-1.25) mg/dL Glucose 157 H (74-99) mg/dL POC Glucose (mg/dL) 177 H (75-99) mg/dL Troponin I (0.000-0.034) ng/mL Diabetes panel 02/10/16 Range/Units 08:17 Sodium 138 (137-145) mmol/L Potassium 3.6 (3.5-5.1) mmol/L Chloride 94 L (98-107) mmol/L Carbon Dioxide 29 (22-30) mmol/L BUN 26 H (9-20) mg/dL Creatinine 5.73 H* (0.66-1.25) mg/dL Glucose 157 H (74-99) mg/dL Calcium 9.2 (8.4-10.2) mg/dL Calcium panel 02/10/16 Range/Units 08:17 Calcium 9.2 (8.4-10.2) mg/dL Phosphorus 4.1 (2.5-4.5) mg/dL Pituitary panel 02/10/16 Range/Units 08:17 Sodium 138 (137-145) mmol/L Potassium 3.6 (3.5-5.1) mmol/L Chloride 94 L (98-107) mmol/L Carbon Dioxide 29 (22-30) mmol/L BUN 26 H (9-20) mg/dL Creatinine 5.73 H* (0.66-1.25) mg/dL Glucose 157 H (74-99) mg/dL Calcium 9.2 (8.4-10.2) mg/dL Adrenal panel 02/10/16 Range/Units 08:17 Sodium 138 (137-145) mmol/L Potassium 3.6 (3.5-5.1) mmol/L Chloride 94 L (98-107) mmol/L Carbon Dioxide 29 (22-30) mmol/L BUN 26 H (9-20) mg/dL Creatinine 5.73 H* (0.66-1.25) mg/dL Glucose 157 H (74-99) mg/dL Calcium 9.2 (8.4-10.2) mg/dL
[2016-02-10 17:23] LABS: Glucose,Whole Blood 115 mg/dL (75-99)
--- NOTE | 2016-02-10 18:04 | PN ---
The patient is a 65-year-old with end-stage renal disease on hemodialysis admitted for infection of the left foot ulcer and dry gangrene and patient was evaluated by Vascular Surgery. They are recommending amputation procedure and patient has also hemodialysis. Patient was also treated for mild congestive heart failure exacerbation. REVIEW OF SYSTEMS: CARDIOVASCULAR: No chest pain, no orthopnea, no PND, no palpitations. PULMONARY: Denied any shortness of breath. No cough or hemoptysis. GASTROINTESTINAL: No diarrhea, nausea or vomiting. No abdominal pain. Normoactive bowel sounds. NEUROLOGIC: No headaches, no weakness, no numbness. Medications were reviewed. PHYSICAL EXAMINATION: VITAL SIGNS: Temperature 96.1, pulse of 66, respiratory rate of 20, blood pressure is 140/77, saturating at 96% on 2L of O2 by nasal cannula. GENERAL: The patient is alert and oriented x3, not in any acute distress. Well developed, well nourished. HEENT: Pupils are round and equally reacting to light. EOMI. No scleral icterus. No conjunctival pallor. Normocephalic, atraumatic. No pharyngeal erythema. No thyromegaly. CARDIOVASCULAR: S1 and S2 present. No murmurs, rubs, or gallops. PULMONARY: Chest is clear to auscultation, no wheezing or crackles. ABDOMEN: Soft, nontender, nondistended, normoactive bowel sounds. No palpable organomegaly. MUSCULOSKELETAL: No joint swelling or deformity. EXTREMITIES: No significant change compared to yesterday. NEUROLOGICAL: Gross neurological examination did not reveal any focal deficits. SKIN: No rashes. LABORATORY DATA: CBC ( ). Basic metabolic profile is abnormal for BUN of 26, creatinine of 5.73. Patient is end-stage renal disease patient. ASSESSMENT: 1. Generalized weakness and fatigue ( ) sepsis from the right foot infection. 2. Right foot with gangrene and an ulcer for which Vascular Surgery is recommending amputation procedure and patient is on Zosyn vancomycin at this point of time. 3. End-stage renal disease, hemodialysis-dependent. 4. Congestive heart failure, chronic systolic dysfunction; ejection fraction of around 35% with mild acute exacerbation. Patient is fairly euvolemic today. 5. Type 2 diabetes mellitus. 6. Diabetic nephropathy and neuropathy. 7. Peripheral vascular disease. 8. Hypertension. Plan is to continue with present medications. Dr. Kumar will evaluate for amputation. Patient will need to be optimized regarding congestive heart failure before he goes for any kind of procedure.
[2016-02-10] MEDS: LISINOPRIL 5 MG TAB PO SCH (20:25)
[2016-02-10] MEDS: METOPROLOL TARTRATE 25 MG TAB PO SCH (20:25)
[2016-02-10 21:39] LABS: Glucose,Whole Blood 135 mg/dL (75-99)
--- NOTE | 2016-02-10 22:30 | P.PN ---
Subjective Principal diagnosis: Gangrene right foot 65-year-old male who has a complex medical history including end- stage renal disease with diabetes mellitus type 2 and severe peripheral vascular disease. 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 He's been followed in the outpatient setting in the wound healing center with podiatry and vascular surgery. He now has a marked worsening to the right foot at the heel. There is been a dry gangrenous area that is now much worse, it is malodorous, with swelling and extension of the erythema and fluctuance around the eschar. The patient is ill. Did not tolerate dialysis well. Developed fever, chills and rigors. Also some hypotension and was brought into hospital. Because of the significant infection to the right foot the infectious diseases consultation was requested The patient has had recent chills and is feeling slightly better. He is eating some food that his daughter has just brought in. The case is discussed with the patient's daughter. Objective - Vital Signs Vital signs: Vital Signs Temp 96.9 F L 02/10/16 15:00 Pulse 73 02/10/16 15:00 Resp 20 02/10/16 15:00 BP 149/80 02/10/16 15:00 Pulse Ox 99 02/10/16 15:00 Intake & Output 02/10/16 02/10/16 02/11/16 06:59 18:59 06:59 Intake Total 300 Balance 300 Weight 81 kg 80.5 kg Intake: Oral 300 Other: # Voids 0 1 0 - Exam 65-year-old male of thin build who seems to be uncomfortable. Has had recent chill and fever. HEENT: Anicteric conjunctiva are pink and moist nasal mucosa grossly intact without significant lesions, there is no thrush. Full denture Neck: The neck is supple without significant lymphadenopathy or thyromegaly. Lungs: Symmetric air entry without expiratory wheezes no vicky bronchial sounds dialysis catheter right anterior chest wall noted Heart: Irregular with an audible S1 and S2 no S3 soft S4 no murmur click or rub Abdomen: Positive bowel sounds soft and nontender without palpable masses or organomegaly. There was no guarding or rebound. Extremities: Upper extremities since of the fistula left arm that isn't functioning well. Right arm without abnormalities. Left lower extremities shows evidence of the biliary amputation with residual limb intact. Right foot shows evidence of the marked changes to the foot at the heel there is distinct eschar there is distinct discoloration around the eschar there is foul odor and some induration and early fluctuance. No steady and drainage is seen. There is scant warmth to the site. Poor peripheral pulses Neuro: Awake alert oriented to person place and time. - Labs CBC & Chem 7: 02/09/16 07:13 02/10/16 08:17 Labs: Abnormal Lab Results - Last 24 Hours (Table) 02/10/16 02/10/16 02/10/16 Range/Units 07:06 08:17 11:38 Chloride 94 L (98-107) mmol/L BUN 26 H (9-20) mg/dL Creatinine 5.73 H* (0.66-1.25) mg/dL Glucose 157 H (74-99) mg/dL POC Glucose (mg/dL) 126 H 177 H (75-99) mg/dL 02/10/16 02/10/16 Range/Units 17:19 21:38 Chloride (98-107) mmol/L BUN (9-20) mg/dL Creatinine (0.66-1.25) mg/dL Glucose (74-99) mg/dL POC Glucose (mg/dL) 115 H 135 H (75-99) mg/dL Laboratory Results WBC 6.4 k/uL (3.8-10.6) 02/09/16 07:13 RBC 3.51 m/uL (4.30-5.90) L 02/09/16 07:13 Hgb 10.4 gm/dL (13.0-17.5) L 02/09/16 07:13 Hct 34.0 % (39.0-53.0) L 02/09/16 07:13 MCV 96.9 fL (80.0-100.0) 02/09/16 07:13 MCH 29.5 pg (25.0-35.0) 02/09/16 07:13 MCHC 30.4 g/dL (31.0-37.0) L 02/09/16 07:13 RDW 13.2 % (11.5-15.5) 02/09/16 07:13 Plt Count 180 k/uL (150-450) 02/09/16 07:13 Neutrophils % 85 % 02/09/16 07:13 Lymphocytes % 6 % 02/09/16 07:13 Monocytes % 7 % 02/09/16 07:13 Eosinophils % 1 % 02/09/16 07:13 Basophils % 1 % 02/09/16 07:13 Neutrophils # 5.4 k/uL (1.3-7.7) 02/09/16 07:13 Lymphocytes # 0.4 k/uL (1.0-4.8) L 02/09/16 07:13 Monocytes # 0.5 k/uL (0-1.0) 02/09/16 07:13 Eosinophils # 0.0 k/uL (0-0.7) 02/09/16 07:13 Basophils # 0.0 k/uL (0-0.2) 02/09/16 07:13 PT 13.8 sec (9.0-12.0) H 02/08/16 18:17 INR 1.4 (<1.1) 02/08/16 18:17 APTT 27.2 sec (22.0-30.0) 02/08/16 18:17 Sodium 138 mmol/L (137-145) 02/10/16 08:17 Potassium 3.6 mmol/L (3.5-5.1) 02/10/16 08:17 Chloride 94 mmol/L (98-107) L 02/10/16 08:17 Carbon Dioxide 29 mmol/L (22-30) 02/10/16 08:17 Anion Gap 15 mmol/L 02/10/16 08:17 BUN 26 mg/dL (9-20) H 02/10/16 08:17 Creatinine 5.73 mg/dL (0.66-1.25) H* 02/10/16 08:17 Est GFR (MDRD) Af Amer 12 (>60 ml/min/1.73 sqM) 02/10/16 08:17 Est GFR (MDRD) Non-Af 10 (>60 ml/min/1.73 sqM) 02/10/16 08:17 Glucose 157 mg/dL (74-99) H 02/10/16 08:17 POC Glucose (mg/dL) 135 mg/dL (75-99) H 02/10/16 21:38 POC Glu Car [employer]man Bryanna Rosen 02/10/16 21:[address] Glu mg/dL 117 mg/dL 02/09/16 07:13 Hemoglobin A1c 5.7 % (4.2-6.1) 02/09/16 07:13 Plasma Lactic Acid Justice 1.2 mmol/L (0.7-2.0) 02/09/16 01:06 Calcium 9.2 mg/dL (8.4-10.2) 02/10/16 08:17 Phosphorus 4.1 mg/dL (2.5-4.5) 02/10/16 08:17 Magnesium 1.9 mg/dL (1.6-2.3) 02/08/16 18:17 Total Bilirubin 1.2 mg/dL (0.2-1.3) 02/08/16 18:17 AST 22 U/L (17-59) 02/08/16 18:17 ALT 24 U/L (21-72) 02/08/16 18:17 Alkaline Phosphatase 139 U/L (38-126) H 02/08/16 18:17 Total Creatine Kinase 44 U/L (55-170) L 02/08/16 18:17 CK-MB (CK-2) 1.3 ng/mL (0.0-2.4) 02/08/16 18:17 CK-MB (CK-2) Rel Index 3.0 02/08/16 18:17 Troponin I 0.076 ng/mL (0.000-0.034) H* 02/09/16 17:40 Total Protein 6.6 g/dL (6.3-8.2) 02/08/16 18:17 Albumin 3.2 g/dL (3.5-5.0) L 02/08/16 18:17 Hep Bs Antigen Negative 02/10/16 08:17 Hep Bs Antibody Negative (Negative) 02/10/16 08:17 Hep B Core IgM Ab NEGATIVE 02/10/16 08:17 Microbiology 02/08/16 18:17 Blood Blood Culture - Preliminary No Growth after 48 hours 02/08/16 18:17 Heel - Right Gram Stain - Preliminary 02/08/16 18:17 Heel - Right Wound Culture - Preliminary Providencia rettgeri 02/08/16 18:17 Blood Blood Culture Gram Stain - Preliminary 02/08/16 18:17 Blood Blood Culture - Preliminary Coagulase Negative Staph Assessment and Plan (1) Atherosclerosis of [place] arteries of right leg with ulceration of heel and midfoot Narrative/Plan: 65-year-old male presents to Hospital because of significant difficulties with his right foot at the heel with increasing difficulties from the eschar and no evidence of worsening infection. Given following the wound healing center because been quite some time since he's been there. She's had difficulty with transportation. He would became somewhat ill at dialysis yesterday and is now much more ill. Is evidence of sepsis with the infection from the right foot. There is evidence of bacteremia as well as evidence of gram-negative bacilli from the wound. Vancomycin is being dosed by the pharmacy services. Unasyn was started but will be changed piperacillin tazobactam given the fact that gram-negative bacilli has been seen no be concerned to pseudomonas or other more resistant gram-negative organisms given his history especially dialysis. Continue ongoing local wound care to the site at this time till be a nonstick dressing and bulky dressing to absorb any drainage and to pad the area. We'll also observe odor. Vascular surgery consult occurred with Dr. Dee. He is referred to case to his current vascular surgery Dr. Kumar. Await surgical plan. Likely will have antibiotic for a short period of time and then proceed with amputation given the current gangrenous nature of the foot in lack of other options. Status: Acute (2) Chronic renal failure Status: Acute (3) Type 2 diabetes mellitus with foot ulcer and gangrene Status: Acute
--- NOTE | 2016-02-11 09:55 | PCN ---
DATE OF PROCEDURE: PREOPERATIVE DIAGNOSIS: Acute chronic renal failure. PROCEDURE: Removal of dialysis catheter. This patient was seen in the room. The right side of the neck and chest were prepped and draped in usual sterile manner. 1% lidocaine was infiltrated. Went circumferential around the catheter. Catheter was removed. Pressure dressing applied. The patient tolerated the procedure well.
[2016-02-11] MEDS: PIPERACILLIN-TAZOBACTAM 3.375 GM in DEXTROSE/WATER 1 50ML.BAG IVPB SCH ×2 (10:18→20:56)
[2016-02-11] MEDS: FOLIC ACID-VIT B COMPLEX-VIT C 1 CAP PO SCH (10:18)
[2016-02-11] MEDS: INSULIN LISPRO (humaLOG) 300 UNIT/3 ML VIAL SQ SCH ×4 (10:18→20:56)
[2016-02-11] MEDS: FUROSEMIDE 40 MG TAB PO SCH ×2 (10:21→16:13)
--- NOTE | 2016-02-11 10:43 | P.PN ---
Subjective Principal diagnosis: ESRD Patient is seen in follow-up for end-stage renal disease. He is maintained on hemodialysis on a Sunday schedule. He presented to the hospital with weakness and is noted to have a right heel ulceration. Currently maintained on antibiotics. Appetite is good. No vomiting or diarrhea. Denies any chest pain or shortness of breath. Vital signs are stable. General: The patient appeared well nourished and normally developed. HEENT: Head exam is unremarkable. Neck is without jugular venous distension. LUNGS: Lungs are clear to auscultation and percussion. Breath sounds decreased. HEART: Rate and Rhythm are regular. First and second heart sounds normal. No murmurs, rubs or gallops. ABDOMEN: Abdominal exam reveals normal bowel sounds. Non-tender and non- distended. No evidence of peritonitis. EXTREMITITES: No clubbing, cyanosis, or edema. Amputation noted. No obvious drainage from wound dressing. Objective - Vital Signs Vital signs: Vital Signs Temp 97.8 F 02/11/16 07:00 Pulse 69 02/11/16 07:00 Resp 24 02/11/16 07:00 BP 139/71 02/11/16 07:00 Pulse Ox 97 02/11/16 07:00 Intake & Output 02/10/16 02/11/16 02/11/16 18:59 06:59 18:59 Output Total 150 Balance -150 Weight 80.5 kg 89 kg Output: Urine 150 Other: # Voids 1 0 - Labs CBC & Chem 7: 02/09/16 07:13 02/10/16 08:17 Labs: Abnormal Lab Results - Last 24 Hours (Table) 02/10/16 02/10/16 02/10/16 Range/Units 11:38 17:19 21:38 POC Glucose (mg/dL) 177 H 115 H 135 H (75-99) mg/dL Microbiology - Last 24 Hours (Table) 02/09/16 22:23 Blood Culture - Preliminary Blood No Growth after 24 hours Assessment and Plan Plan: Assessment: #1. End-stage renal disease maintained on hemodialysis on a Sunday schedule via left upper extremity AV fistula. #2. Hypokalemia. #3. Right foot ulcer. #4. Anemia of chronic kidney disease. Plan: Hemodialysis tomorrow with goal 2-1/2 L ultrafiltration. Nephrocaps daily. Antibiotics per infectious disease recommendations. Chest permacath was discontinued yesterday as he has a functioning AV fistula.
[2016-02-11 13:40] LABS: Glucose,Whole Blood 109 mg/dL (75-99)
[2016-02-11 13:42] LABS: Glucose,Whole Blood 178 mg/dL (75-99)
[2016-02-11] MEDS ORDERED: VANCOMYCIN 1,500 MG in SODIUM CHLORIDE 0.9% 250 ML IVPB ONE (17:00)
--- NOTE | 2016-02-11 17:04 | PN ---
The patient is a 65-year-old with end-stage renal disease on hemodialysis admitted for infection of the left foot ulcer and gangrene and patient had sepsis from the lower extremity wound along with bacteremia with gram-negative bacilli and wound cultures being positive for Providencia. Patient is on vanco and Zosyn at this point of time. Patient does have end-stage renal disease, hemodialysis dependent, and patient will need amputation procedure. Patient had significant peripheral vascular disease and poor vascularity. Patient for his infection apparently will need amputation procedure. REVIEW OF SYSTEMS: CARDIOVASCULAR: No chest pain, no orthopnea, no PND, no palpitations. PULMONARY: Denied any shortness of breath. No cough or hemoptysis. GASTROINTESTINAL: No diarrhea, nausea or vomiting. No abdominal pain. Normoactive bowel sounds. NEUROLOGIC: No headaches, no weakness, no numbness. Medications were reviewed. PHYSICAL EXAMINATION: VITAL SIGNS: Temperature 96.3, pulse of 69, respiratory rate of 16, blood pressure is 144/77, saturating at 100% on 2L of O2 by nasal cannula. GENERAL: The patient is alert and oriented x3, not in any acute distress. Well developed, well nourished. HEENT: Pupils are round and equally reacting to light. EOMI. No scleral icterus. No conjunctival pallor. Normocephalic, atraumatic. No pharyngeal erythema. No thyromegaly. CARDIOVASCULAR: S1 and S2 present. No murmurs, rubs, or gallops. PULMONARY: Chest is clear to auscultation, no wheezing or crackles. ABDOMEN: Soft, nontender, nondistended, normoactive bowel sounds. No palpable organomegaly. MUSCULOSKELETAL: No joint swelling or deformity. EXTREMITIES: No significant change compared to yesterday. NEUROLOGICAL: Gross neurological examination did not reveal any focal deficits. SKIN: No rashes. LABORATORY DATA: Basic metabolic profile is abnormal for elevated BUN and creatinine of 26 and 5.73. ASSESSMENT AND PLAN: 1. Sepsis secondary to right foot decubitus ulcer. Patient does have severe peripheral vascular disease and patient will need amputation procedure. 2. Bacteremia with gram-negative bacilli and patient's wound cultures being positive for Providencia. Patient on Zosyn and vancomycin which is being continued until we get the finalization of the organisms. 3. Type 2 diabetes mellitus. 4. Diabetic neuropathy and nephropathy. 5. Hypertension. 6. For above-mentioned chronic medical problems, will go ahead and continue his home medications. 7. Patient will need amputation procedure by Dr. Kumar, probably will be done tomorrow.
[2016-02-11 17:21] LABS: Glucose,Whole Blood 113 mg/dL (75-99)
[2016-02-11 20:50] LABS: Glucose,Whole Blood 156 mg/dL (75-99)
[2016-02-11] MEDS: METOPROLOL TARTRATE 25 MG TAB PO SCH (20:56)
[2016-02-11] MEDS: LISINOPRIL 5 MG TAB PO SCH (20:56)
--- NOTE | 2016-02-11 22:59 | P.PN ---
Subjective Principal diagnosis: ESRD 65-year-old male who has a complex medical history including end- stage renal disease with diabetes mellitus type 2 and severe peripheral vascular disease. 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 He's been followed in the outpatient setting in the wound healing center with podiatry and vascular surgery. He now has a marked worsening to the right foot at the heel. There is been a dry gangrenous area that is now much worse, it is malodorous, with swelling and extension of the erythema and fluctuance around the eschar. The patient is ill. Did not tolerate dialysis well. Developed fever, chills and rigors. Also some hypotension and was brought into hospital. Because of the significant infection to the right foot the infectious diseases consultation was requested The patient has had recent chills and is feeling slightly better. Eating well today. The case is discussed with the patient's daughter. Objective - Vital Signs Vital signs: Vital Signs Temp 96.3 F L 02/11/16 15:00 Pulse 64 02/11/16 15:00 Resp 16 02/11/16 15:00 BP 144/77 02/11/16 15:00 Pulse Ox 100 02/11/16 15:00 Intake & Output 02/11/16 02/11/16 02/12/16 06:59 18:59 06:59 Output Total 150 Balance -150 Weight 89 kg Output: Urine 150 Other: # Voids 0 1 - Exam 65-year-old male of thin build who seems to be uncomfortable. Has had recent chill and fever. HEENT: Anicteric conjunctiva are pink and moist nasal mucosa grossly intact without significant lesions, there is no thrush. Full denture Neck: The neck is supple without significant lymphadenopathy or thyromegaly. Lungs: Symmetric air entry without expiratory wheezes no vicky bronchial sounds dialysis catheter right anterior chest wall noted Heart: Irregular with an audible S1 and S2 no S3 soft S4 no murmur click or rub Abdomen: Positive bowel sounds soft and nontender without palpable masses or organomegaly. There was no guarding or rebound. Extremities: Upper extremities since of the fistula left arm that isn't functioning well. Right arm without abnormalities. Left lower extremities shows evidence of the biliary amputation with residual limb intact. Right foot shows evidence of the marked changes to the foot at the heel there is distinct eschar there is distinct discoloration around the eschar there is foul odor and some induration and early fluctuance. No significant drainage is seen. There is scant warmth to the site. Poor peripheral pulses Neuro: Awake alert oriented to person place and time. - Labs CBC & Chem 7: 02/09/16 07:13 02/10/16 08:17 Labs: Abnormal Lab Results - Last 24 Hours (Table) 02/11/16 02/11/16 02/11/16 Range/Units 07:17 12:16 17:17 POC Glucose (mg/dL) 109 H 178 H 113 H (75-99) mg/dL 02/11/16 Range/Units 20:19 POC Glucose (mg/dL) 156 H (75-99) mg/dL Microbiology - Last 24 Hours (Table) 02/09/16 22:23 Blood Culture - Preliminary Blood No Growth after 24 hours Laboratory Results WBC 6.4 k/uL (3.8-10.6) 02/09/16 07:13 RBC 3.51 m/uL (4.30-5.90) L 02/09/16 07:13 Hgb 10.4 gm/dL (13.0-17.5) L 02/09/16 07:13 Hct 34.0 % (39.0-53.0) L 02/09/16 07:13 MCV 96.9 fL (80.0-100.0) 02/09/16 07:13 MCH 29.5 pg (25.0-35.0) 02/09/16 07:13 MCHC 30.4 g/dL (31.0-37.0) L 02/09/16 07:13 RDW 13.2 % (11.5-15.5) 02/09/16 07:13 Plt Count 180 k/uL (150-450) 02/09/16 07:13 Neutrophils % 85 % 02/09/16 07:13 Lymphocytes % 6 % 02/09/16 07:13 Monocytes % 7 % 02/09/16 07:13 Eosinophils % 1 % 02/09/16 07:13 Basophils % 1 % 02/09/16 07:13 Neutrophils # 5.4 k/uL (1.3-7.7) 02/09/16 07:13 Lymphocytes # 0.4 k/uL (1.0-4.8) L 02/09/16 07:13 Monocytes # 0.5 k/uL (0-1.0) 02/09/16 07:13 Eosinophils # 0.0 k/uL (0-0.7) 02/09/16 07:13 Basophils # 0.0 k/uL (0-0.2) 02/09/16 07:13 PT 13.8 sec (9.0-12.0) H 02/08/16 18:17 INR 1.4 (<1.1) 02/08/16 18:17 APTT 27.2 sec (22.0-30.0) 02/08/16 18:17 Sodium 138 mmol/L (137-145) 02/10/16 08:17 Potassium 3.6 mmol/L (3.5-5.1) 02/10/16 08:17 Chloride 94 mmol/L (98-107) L 02/10/16 08:17 Carbon Dioxide 29 mmol/L (22-30) 02/10/16 08:17 Anion Gap 15 mmol/L 02/10/16 08:17 BUN 26 mg/dL (9-20) H 02/10/16 08:17 Creatinine 5.73 mg/dL (0.66-1.25) H* 02/10/16 08:17 Est GFR (MDRD) Af Amer 12 (>60 ml/min/1.73 sqM) 02/10/16 08:17 Est GFR (MDRD) Non-Af 10 (>60 ml/min/1.73 sqM) 02/10/16 08:17 Glucose 157 mg/dL (74-99) H 02/10/16 08:17 POC Glucose (mg/dL) 156 mg/dL (75-99) H 02/11/16 20:19 POC Glu Christian Counselor ID Vandana Potts 02/11/16 20:[address] Glu mg/dL 117 mg/dL 02/09/16 07:13 Hemoglobin A1c 5.7 % (4.2-6.1) 02/09/16 07:13 Plasma Lactic Acid Justice 1.2 mmol/L (0.7-2.0) 02/09/16 01:06 Calcium 9.2 mg/dL (8.4-10.2) 02/10/16 08:17 Phosphorus 4.1 mg/dL (2.5-4.5) 02/10/16 08:17 Magnesium 1.9 mg/dL (1.6-2.3) 02/08/16 18:17 Total Bilirubin 1.2 mg/dL (0.2-1.3) 02/08/16 18:17 AST 22 U/L (17-59) 02/08/16 18:17 ALT 24 U/L (21-72) 02/08/16 18:17 Alkaline Phosphatase 139 U/L (38-126) H 02/08/16 18:17 Total Creatine Kinase 44 U/L (55-170) L 02/08/16 18:17 CK-MB (CK-2) 1.3 ng/mL (0.0-2.4) 02/08/16 18:17 CK-MB (CK-2) Rel Index 3.0 02/08/16 18:17 Troponin I 0.076 ng/mL (0.000-0.034) H* 02/09/16 17:40 Total Protein 6.6 g/dL (6.3-8.2) 02/08/16 18:17 Albumin 3.2 g/dL (3.5-5.0) L 02/08/16 18:17 Random Vancomycin 15.5 ug/mL 02/11/16 08:16 Hep Bs Antigen Negative 02/10/16 08:17 Hep Bs Antibody Negative (Negative) 02/10/16 08:17 Hep B Core IgM Ab NEGATIVE 02/10/16 08:17 Microbiology 02/08/16 18:17 Blood Blood Culture - Preliminary No Growth after 72 hours 02/08/16 18:17 Blood Blood Culture Gram Stain - Preliminary 02/08/16 18:17 Blood Blood Culture - Preliminary Coagulase Negative Staph Gram Neg Bacilli 02/09/16 22:23 Blood Blood Culture - Preliminary No Growth after 24 hours 02/08/16 18:17 Heel - Right Gram Stain - Preliminary 02/08/16 18:17 Heel - Right Wound Culture - Preliminary Providencia rettgeri Assessment and Plan (1) Atherosclerosis of [place] arteries of right leg with ulceration of heel and midfoot Narrative/Plan: 65-year-old male presents to Hospital because of significant difficulties with his right foot at the heel with increasing difficulties from the eschar and no evidence of worsening infection. Given following the wound healing center because been quite some time since he's been there. She's had difficulty with transportation. He would became somewhat ill at dialysis yesterday and is now much more ill. Is evidence of sepsis with the infection from the right foot. There is evidence of bacteremia as well as evidence of gram-negative bacilli from the wound. Vancomycin is being dosed by the pharmacy services. Unasyn was started but will be changed piperacillin tazobactam given the fact that gram-negative bacilli has been seen no be concerned to pseudomonas or other more resistant gram-negative organisms given his history especially dialysis. Continue ongoing local wound care to the site at this time till be a nonstick dressing and bulky dressing to absorb any drainage and to pad the area. We'll also observe odor. Vascular surgery consult occurred with Dr. Dee. He is referred to case to his current vascular surgery Dr. Kumar. Likely will have antibiotic for a short period of time and then proceed with amputation given the current gangrenous nature of the foot in lack of other options. Status: Acute (2) Chronic renal failure Status: Acute (3) Type 2 diabetes mellitus with foot ulcer and gangrene Status: Acute
[2016-02-12 07:50] LABS: Glucose,Whole Blood 109 mg/dL (75-99)
[2016-02-12 07:54] LABS: CHCM 31.3; HCT 32.2 % (39.0-53.0); HDW 2.13; HGB 10.1 gm/dL (13.0-17.5); MCH 30.2 pg (25.0-35.0); MCHC 31.4 g/dL (31.0-37.0); MCV 96.4 fL (80.0-100.0); Mean Platelet Volume 7.5; RBC 3.34 m/uL (4.30-5.90); RDW 13.2 % (11.5-15.5); WBC 9.4 k/uL (3.8-10.6)
[2016-02-12 08:13] LABS: Calcium 9.5 mg/dL (8.4-10.2); Potassium 3.9 mmol/L (3.5-5.1)
[2016-02-12] MEDS: FOLIC ACID-VIT B COMPLEX-VIT C 1 CAP PO SCH (09:17)
[2016-02-12] MEDS: PIPERACILLIN-TAZOBACTAM 3.375 GM in DEXTROSE/WATER 1 50ML.BAG IVPB SCH ×2 (09:17→21:29)
[2016-02-12] MEDS: FUROSEMIDE 40 MG TAB PO SCH ×2 (09:17→16:38)
[2016-02-12] MEDS: INSULIN LISPRO (humaLOG) 300 UNIT/3 ML VIAL SQ SCH ×4 (09:18→21:08)
--- NOTE | 2016-02-12 11:16 | P.PN ---
Progress Note - Text 65 old white male, history of renal failure, history of peripheral vascular disease, patient had a transmetatarsal amputation done in the past by Dr. Guan and left below-knee amputation in the past patient developed a infected gangrene of the right heel with foul-smelling odor patient Popliteal dorsal pedis posterior tibial is not palpable patient has a large area of the infected gangrene on the involving the heel area we have discussed the option with the patient below-knee versus above-knee amputation patient wants to go about below the knee amputation I have discussed with him because of his poor circulation there is a 5050% chance of healing patient underwent understands patient is on dialysis now and we will arrange for amputation he wants go on Sunday shunt is going to dialyze before the surgery thank you very much
--- NOTE | 2016-02-12 11:54 | XR ---
EXAMINATION TYPE: XR chest 1V DATE OF EXAM: 02/12/2016 11:41 AM COMPARISON: 02/08/2016 HISTORY: CHF TECHNIQUE: Single frontal view of the chest is obtained. FINDINGS: There is consolidation at the right lung base. There is pulmonary vascular congestion. The re is probably moderate right pleural effusion as well. Thoracic aorta is atheromatous. IMPRESSION: Congestive heart failure with right pleural effusion and right lower lobe consolidation. There is removal of the right central venous catheter compared to last exam. There is no change in t he heart failure.
[2016-02-12 12:06] LABS: Glucose,Whole Blood 176 mg/dL (75-99)
--- NOTE | 2016-02-12 13:51 | P.PN ---
Subjective Principal diagnosis: ESRD This is a 65-year-old malewith ESRD on dialysis Sunday. He came in with a right foot ulcer on his previously amputated transmetatarsal amputation foot. He has a prior remote left BKA. He has no significant complaints. No fever chills cough shortness of breath. No dizziness fever chills. His appetite is good. He is known with diabetes liver disease or for vascular disease. Objective - Vital Signs Vital signs: Vital Signs Temp 97.3 F L 02/12/16 07:00 Pulse 61 02/12/16 07:00 Resp 19 02/12/16 07:00 BP 130/69 02/12/16 07:00 Pulse Ox 100 02/12/16 07:00 Intake & Output 02/11/16 02/12/16 02/12/16 18:59 06:59 18:59 Intake Total 250 Balance 250 Weight 90 kg Intake: Oral 250 Other: # Voids 1 0 On examination is awake alert oriented. HEENT exam no JVP neck is supple no facial asymmetry. Lungs clear to auscultation percussion good air entry bilaterally. Heart sounds are unremarkable for any murmur rub gallop Abdomen soft nontender no organomegaly status masses Extreme exam reveals left BKA with stump normal-looking. Right foot transmetatarsal amputation in the remote. He has a bandage on his right foot. There is no edema Neurologically awake alert oriented no asterixis. No focal motor deficit. - Labs CBC & Chem 7: 02/12/16 07:21 02/12/16 07:21 Labs: Abnormal Lab Results - Last 24 Hours (Table) 02/11/16 02/11/16 02/12/16 Range/Units 17:17 20:19 07:03 RBC (4.30-5.90) m/uL Hgb (13.0-17.5) gm/dL Hct (39.0-53.0) % Sodium (137-145) mmol/L Chloride (98-107) mmol/L BUN (9-20) mg/dL Creatinine (0.66-1.25) mg/dL Glucose (74-99) mg/dL POC Glucose (mg/dL) 113 H 156 H 109 H (75-99) mg/dL 02/12/16 02/12/16 02/12/16 Range/Units 07:21 07:21 11:57 RBC 3.34 L (4.30-5.90) m/uL Hgb 10.1 L (13.0-17.5) gm/dL Hct 32.2 L (39.0-53.0) % Sodium 136 L (137-145) mmol/L Chloride 95 L (98-107) mmol/L BUN 40 H (9-20) mg/dL Creatinine 5.82 H* (0.66-1.25) mg/dL Glucose 111 H (74-99) mg/dL POC Glucose (mg/dL) 176 H (75-99) mg/dL Microbiology - Last 24 Hours (Table) 02/09/16 22:23 Blood Culture - Preliminary Blood No Growth after 48 hours Assessment and Plan Plan: Impression. 1. ESRD on dialysis Sunday. On for 3-1/2 hours. Stable. 2. Right foot ulcer with a previously amputated all 5 toes 3. Remote left below knee amputation. 4. Anemia controlled hemoglobin 7.1. Recommendation. Discussed with Dr. Kumar vascular surgeon and one is for amputation Sunday 2 days from now. Will watch potassium and make sure he is cleared for surgery on Sunday.
[2016-02-12 17:23] LABS: Glucose,Whole Blood 131 mg/dL (75-99)
[2016-02-12] MEDS ORDERED: GELATIN SPONGE,ABSORB (SMALL) 1 EACH SPONGE ONE (18:30)
[2016-02-12 21:02] LABS: Glucose,Whole Blood 160 mg/dL (75-99)
[2016-02-12] MEDS: METOPROLOL TARTRATE 25 MG TAB PO SCH (21:09)
[2016-02-12] MEDS: LISINOPRIL 5 MG TAB PO SCH (21:09)
--- NOTE | 2016-02-12 21:56 | PN ---
A 65-year-old admitted with end-stage renal disease is admitted for right foot ulcer. Patient appears to be quite depressed today. I did get a chest x-ray to make sure patient's pulmonary improved, but his pulmonary edema appears to be the same, although clinically he looks pretty well, saturating at 100% on 2L when he does need oxygen at all. Because of that reason, probably he will do okay with the surgery. Patient continues to be on broad-spectrum antibiotics and blood cultures are showing Staph hominis, Proteus vulgaris and repeat blood cultures from 2 days is negative. Patient is being continued on Zosyn at this point of time. REVIEW OF SYSTEMS: CONSTITUTIONAL: Although he denies, patient appears to be depressed. I will add fluoxetine. CARDIOVASCULAR: No chest pain, no orthopnea, no PND, no palpitations. PULMONARY: Denied any shortness of breath. No cough or hemoptysis. GASTROINTESTINAL: No diarrhea, nausea or vomiting. No abdominal pain. Normoactive bowel sounds. NEUROLOGIC: No headaches, no weakness, no numbness. Medications were reviewed and medication changes as mentioned above. PHYSICAL EXAMINATION: VITAL SIGNS: Temperature 97.1, pulse of 61, respiratory rate of 19, blood pressure is 130/69, saturating at 99% of 2L of O2 by nasal cannula. GENERAL: The patient is alert and oriented x3, not in any acute distress. Well developed, well nourished. HEENT: Pupils are round and equally reacting to light. EOMI. No scleral icterus. No conjunctival pallor. Normocephalic, atraumatic. No pharyngeal erythema. No thyromegaly. CARDIOVASCULAR: S1 and S2 present. No murmurs, rubs, or gallops. PULMONARY: Chest is clear to auscultation, no wheezing or crackles. ABDOMEN: Soft, nontender, nondistended, normoactive bowel sounds. No palpable organomegaly. MUSCULOSKELETAL: No joint swelling or deformity. EXTREMITIES: Unchanged compared to yesterday. NEUROLOGICAL: Gross neurological examination did not reveal any focal deficits. SKIN: No rashes. LABORATORY DATA: Elevated BUN and creatinine which is unexpected because the patient has end-stage renal disease. ASSESSMENT AND PLAN: 1. Sepsis secondary to right foot decubitus ulcer disease and patient has severe peripheral vascular disease. He is undergoing for amputation procedure tomorrow. 2. Bacteremia with bacteremia with multiple bacteria, all of which are sensitive to Zosyn which is being continued at this point of time. 3. Type 2 diabetes mellitus. 4. Diabetic neuropathy and nephropathy. 5. Hypertension. 6. Plan is to continue with present medications, continue with present antibiotics and continue with hemodialysis as scheduled and amputation procedure tomorrow and Sunday.
[2016-02-13 07:26] LABS: Glucose,Whole Blood 104 mg/dL (75-99)
[2016-02-13] MEDS: PIPERACILLIN-TAZOBACTAM 3.375 GM in DEXTROSE/WATER 1 50ML.BAG IVPB SCH ×2 (07:47→21:03)
[2016-02-13] MEDS: INSULIN LISPRO (humaLOG) 300 UNIT/3 ML VIAL SQ SCH ×4 (07:47→20:02)
[2016-02-13] MEDS: FUROSEMIDE 40 MG TAB PO SCH ×2 (07:51→15:28)
[2016-02-13] MEDS: PARoxetine 10 MG TAB PO SCH (07:51)
[2016-02-13] MEDS: FOLIC ACID-VIT B COMPLEX-VIT C 1 CAP PO SCH (07:51)
[2016-02-13 11:59] LABS: Glucose,Whole Blood 195 mg/dL (75-99)
--- NOTE | 2016-02-13 13:10 | P.PN ---
Subjective Principal diagnosis: ESRD This is a 65-year-old malewith ESRD on dialysis Sunday. He came in with a right foot ulcer on his previously amputated transmetatarsal amputation foot. He has a prior remote left BKA. He was dialyzed yesterday and tolerated 2 L ultrafiltration without any problems. This morning is feeling fine. Denies any complaints at all. He has no significant complaints. No fever chills cough shortness of breath. No dizziness fever chills. His appetite is good. He is known with diabetes liver disease or for vascular disease. Objective - Vital Signs Vital signs: Vital Signs Temp 97.5 F L 02/13/16 07:00 Pulse 60 02/13/16 07:00 Resp 20 02/13/16 07:00 BP 152/75 02/13/16 07:00 Pulse Ox 100 02/13/16 07:00 Intake & Output 02/12/16 02/13/16 02/13/16 18:59 06:59 18:59 Weight 91 kg Other: # Voids 0 1 # Bowel Movements 1 On examination is awake alert oriented comfortable sitting in the bed with feet down. HEENT exam no JVP neck is supple no facial asymmetry Lungs clear to auscultation percussion good air entry bilaterally. Heart sounds are unremarkable for any murmur rub gallop. Abdomen soft nontender no organomegaly status masses Extreme exam reveals no edema off his left thigh. He has a left below knee amputation and right transmetatarsal amputation from remote and has a fresh nonhealing ulcer on the right foot. He has trace edema. His right leg. Neurologically awake alert oriented no focal motor deficit - Labs CBC & Chem 7: 02/12/16 07:21 02/12/16 07:21 Labs: Abnormal Lab Results - Last 24 Hours (Table) 02/12/16 02/12/16 02/13/16 Range/Units 17:16 21:01 06:43 POC Glucose (mg/dL) 131 H 160 H 104 H (75-99) mg/dL 02/13/16 Range/Units 11:44 POC Glucose (mg/dL) 195 H (75-99) mg/dL Microbiology - Last 24 Hours (Table) 02/09/16 22:23 Blood Culture - Preliminary Blood No Growth after 72 hours Assessment and Plan Plan: Impression. 1. ESRD on dialysis Sunday. On for 3-1/2 hours. Stable. 2. Right foot ulcer with a previously amputated all 5 toes 3. Remote left below knee amputation. 4. Anemia controlled hemoglobin 10.1 as of 02/12/2016. This is at target Recommendation. Cleared for surgery tomorrow on his right leg. We will get a stat lites fairly the morning so that he can be cleared for surgery. I have instructed the nurses regarding the stat blood to be drawn tomorrow buffer copper at 5:00 and to be reported to me
[2016-02-13] MEDS: CALCIUM CARBONATE 500 MG CHEWABLE PO PRN (15:28)
[2016-02-13 17:32] LABS: Glucose,Whole Blood 192 mg/dL (75-99)
[2016-02-13] MEDS: LISINOPRIL 5 MG TAB PO SCH (20:03)
[2016-02-13] MEDS: METOPROLOL TARTRATE 25 MG TAB PO SCH (20:03)
[2016-02-13 22:02] LABS: Glucose,Whole Blood 124 mg/dL (75-99)
[2016-02-14 04:55] LABS: Glucose,Whole Blood 105 mg/dL (75-99)
[2016-02-14 06:02] LABS: Potassium 4.3 mmol/L (3.5-5.1)
[2016-02-14 06:57] LABS: Glucose,Whole Blood 95 mg/dL (75-99)
[2016-02-14] MEDS: INSULIN LISPRO (humaLOG) 300 UNIT/3 ML VIAL SQ SCH ×4 (07:35→20:09)
[2016-02-14] MEDS: FUROSEMIDE 40 MG TAB PO SCH ×2 (07:36→16:59)
[2016-02-14] MEDS: PARoxetine 10 MG TAB PO SCH (07:36)
[2016-02-14] MEDS: FOLIC ACID-VIT B COMPLEX-VIT C 1 CAP PO SCH (07:36)
[2016-02-14] MEDS: PIPERACILLIN-TAZOBACTAM 3.375 GM in DEXTROSE/WATER 1 50ML.BAG IVPB SCH ×2 (07:37→20:13)
[2016-02-14 08:13] LABS: CH 29.8; HCT 30.5 % (39.0-53.0); HDW 2.18; HGB 9.8 gm/dL (13.0-17.5); MCH 31.1 pg (25.0-35.0); MCHC 32.3 g/dL (31.0-37.0); MCV 96.4 fL (80.0-100.0); Mean Platelet Volume 7.6; RBC 3.16 m/uL (4.30-5.90); RDW 13.5 % (11.5-15.5)
[2016-02-14] MEDS ORDERED: FUROSEMIDE 10 MG/ML 10 ML VIAL IVPB STA (09:11)
[2016-02-14] MEDS ORDERED: FUROSEMIDE 200 MG in SODIUM CHLORIDE 0.9% 50 ML IVP ONE (09:15)
--- NOTE | 2016-02-14 09:40 | XR ---
EXAMINATION TYPE: XR chest 1V portable DATE OF EXAM: 02/14/2016 9:26 AM COMPARISON: 02/12/2016 HISTORY: CHF TECHNIQUE: Single frontal view of the chest is obtained. FINDINGS: Right-sided consolidation and pleural effusion are stable. Cardiomegaly and diffuse inters titial pattern noted. No pneumothorax. IMPRESSION: 1. Right-sided consolidation and pleural effusion. Findings stable. Correlate for CHF.
--- NOTE | 2016-02-14 09:59 | P.PN ---
Subjective Principal diagnosis: ESRD This is a 65-year-old malewith ESRD on dialysis Sunday. He came in with a right foot ulcer on his previously amputated transmetatarsal amputation foot. He has a prior remote left BKA. He is not feeling well today. He is unable to specific about it but does have some shortness of breath and cough. He did not sleep well last night. Denies any fever chills nausea vomiting diarrhea abdominal pain. No fever chills documented He was dialyzed day before yesterday on Sunday and tolerated 2 L ultrafiltration without any problems. He is known with diabetes, liver disease possibly sarcoidosis, and Per vascular disease. Objective - Vital Signs Vital signs: Vital Signs Temp 97.8 F 02/14/16 07:00 Pulse 61 02/14/16 07:00 Resp 20 02/14/16 07:00 BP 150/81 02/14/16 07:00 Pulse Ox 99 02/14/16 07:00 Intake & Output 02/13/16 02/14/16 02/14/16 18:59 06:59 18:59 Intake Total 100 Balance 100 Weight 87.5 kg Intake: Oral 100 Other: # Voids 1 0 # Bowel Movements 1 On examination he looks somewhat anxious depressed and L. On room air he is saturating 94%. A chin exam no JVP neck is supple no facial asymmetry Consult significant for diminished breath sounds in the right side with dullness. Heart sounds are unremarkable for any murmur rub gallop. Abdomen soft nontender no masses or organomegaly felt. Extremity examination was moderate edema. He has remote BKA on the left and remote transmetatarsal amputation on the right. He has also on his right foot. Neurologically awake alert oriented. No focal motor deficit - Labs CBC & Chem 7: 02/14/16 07:55 02/14/16 05:19 Labs: Abnormal Lab Results - Last 24 Hours (Table) 02/13/16 02/13/16 02/13/16 Range/Units 11:44 17:25 21:33 RBC (4.30-5.90) m/uL Hgb (13.0-17.5) gm/dL Hct (39.0-53.0) % Chloride (98-107) mmol/L POC Glucose (mg/dL) 195 H 192 H 124 H (75-99) mg/dL Crossmatch 02/14/16 02/14/16 02/14/16 Range/Units 04:51 05:19 07:55 RBC (4.30-5.90) m/uL Hgb (13.0-17.5) gm/dL Hct (39.0-53.0) % Chloride 96 L (98-107) mmol/L POC Glucose (mg/dL) 105 H (75-99) mg/dL Crossmatch See Detail 02/14/16 Range/Units 07:55 RBC 3.16 L (4.30-5.90) m/uL Hgb 9.8 L (13.0-17.5) gm/dL Hct 30.5 L (39.0-53.0) % Chloride (98-107) mmol/L POC Glucose (mg/dL) (75-99) mg/dL Crossmatch Microbiology - Last 24 Hours (Table) 02/09/16 22:23 Blood Culture - Preliminary Blood No Growth after 96 hours Assessment and Plan Plan: Impression. 1. ESRD on dialysis Sunday. On for 3-1/2 hours. Stable. 2. This morning he is not feeling well dated 02/14/2016. A chest x-ray shows increasing infiltrate and possible effusion on the right side. This may be congestive heart failure as well as a pneumonia. I talked to Dr. Rodriguez vascular surgery and we decided to hold the elective right foot surgery and I'll dialyze him today and self tomorrow will take off 3 L over 3-1/2 hours. 2. Right foot ulcer with a previously amputated all 5 toes 3. Remote left below knee amputation. 4. Anemia controlled hemoglobin 10.1 as of 02/12/2016. This is at target Recommendation. I talked to Dr. Rodriguez vascular surgery and we decided to hold the elective right foot surgery and I'll dialyze him today and self tomorrow will take off 3 L over 3-1/2 hours. His electrolytes are unremarkable potassium is within normal range
[2016-02-14 10:04] LABS: INR 1.3 (<1.1); Prothrombin Time 12.4 sec (9.0-12.0)
--- NOTE | 2016-02-14 10:04 | PN ---
Patient admitted with endstage renal disease, right foot ulceration. Patient is going for below-knee amputation tomorrow on the right side. Patient has endstage renal disease. The patient's blood cultures are polymicrobial in nature with staff hominis, proteus vulgaris, providentia. Wound cultures positive for providentia. The patient is on Zosyn at this point of time. REVIEW OF SYSTEMS: CARDIOVASCULAR: No chest pain, no orthopnea, no PND, no palpitations. PULMONARY: Denied any shortness of breath. No cough or hemoptysis. GASTROINTESTINAL: No diarrhea, nausea or vomiting. No abdominal pain. Normoactive bowel sounds. NEUROLOGIC: No headaches, no weakness, no numbness. Medications reviewed. PHYSICAL EXAMINATION: VITAL SIGNS: Temperature 97.5, pulse 60, respiratory rate 20, blood pressure 152/70, saturating at 100% on 2 liters orally by nasal cannula. GENERAL: The patient is alert and oriented x3, not in any acute distress. Well developed, well nourished. HEENT: Pupils are round and equally reacting to light. EOMI. No scleral icterus. No conjunctival pallor. Normocephalic, atraumatic. No pharyngeal erythema. No thyromegaly. CARDIOVASCULAR: S1 and S2 present. No murmurs, rubs, or gallops. PULMONARY: Chest is clear to auscultation, no wheezing or crackles. ABDOMEN: Soft, nontender, nondistended, normoactive bowel sounds. No palpable organomegaly. MUSCULOSKELETAL: No joint swelling or deformity. EXTREMITIES: No significant change compared to yesterday. NEUROLOGICAL: Gross neurological examination did not reveal any focal deficits. SKIN: No rashes. LABORATORY DATA: Reviewed. The patient does have elevated BUN and creatinine because of endstage renal disease. ASSESSMENT AND PLAN: 1. Sepsis secondary to right foot decubitus ulcer and the patient has severe peripheral vascular disease, undergoing amputation procedure tomorrow. 2. Bacteremia. Severe sepsis secondary to bacteremia with above mentioned organisms. Patient is on Zosyn at this point of time. The patient is going for outpatient. 3. Type 2 diabetes mellitus, fairly controlled blood sugars. 4. Endstage renal disease secondary to diabetic nephropathy. 5. Hypertension. Plan is to continue hemodialysis. Continue with antibiotics ambulation. Amputation procedure tomorrow. The patient is depressed, for which patient was given paroxetine starting today. Anemia, which appears to be chronic anemia, probably related to anemia of chronic kidney disease.
--- NOTE | 2016-02-14 10:22 | P.PN ---
Progress Note - Text 65-year-old male patient was scheduled to have a right BK [place] today discussed with Dr. johnson patient to has history of 4 chronic or renal failure and is on dialysis chest x-ray showed right-sided consolidation with pleural effusion INR is slightly high patient will need dialysis and correct the right- sided pleural effusion and then we will proceed for for surgery have discussed with the hospitalist the understanding
[2016-02-14 12:20] LABS: Glucose,Whole Blood 152 mg/dL (75-99)
[2016-02-14] MEDS ORDERED: GELATIN SPONGE,ABSORB (SMALL) 1 EACH SPONGE ONE ×2 (14:15→19:30)
--- NOTE | 2016-02-14 16:29 | XR ---
EXAMINATION TYPE: XR chest 1V portable DATE OF EXAM: 02/14/2016 4:23 PM Comparison: 02/14/2016, earlier today Clinical History: 65-year-old male with shortness of breath and weakness Findings: Right heart margin remains obscured by adjacent pleural parenchymal disease. Diffuse interstitial and vascular prominence. Continued extensive opacity within the right mid and lower lung. Impression: 1. Overall stable findings. Correlate for CHF with interstitial edema. 2. Moderate sized right pleural effusion with prominent right mid and lower lung opacity could repres ent atelectasis or consolidation. Follow-up to ensure complete clearance and exclude any underlying m ass.
--- NOTE | 2016-02-14 16:30 | PN ---
Patient is admitted for end stage renal disease, right foot ulceration. Patient will undergo below-knee amputation, the patient supposed to undergo below knee amputation, but his chest x-ray showed pulmonary edema because of which patient was given a dose of 200 mg of IV Lasix and the patient ( ) they will try to remove about 4 liter of fluid from his body, although because patient started having cramps nephrology is unable to fluid too much of the fluid from his body and patient will undergo dialysis tomorrow before his above knee amputation. Medications were reviewed. REVIEW OF SYSTEMS: CARDIOVASCULAR: No chest pain, no orthopnea, no PND, no palpitations. PULMONARY: Denied any shortness of breath. No cough or hemoptysis. GASTROINTESTINAL: No diarrhea, nausea or vomiting. No abdominal pain. Normoactive bowel sounds. NEUROLOGIC: No headaches, no weakness, no numbness. PHYSICAL EXAMINATION: Temperature 97.8, pulse of 61, respiratory rate 20, blood pressure is 150/81, saturating at 99% on 2 L of O2 by nasal cannula. GENERAL: The patient is alert and oriented x3, not in any acute distress. Well developed, well nourished. HEENT: Pupils are round and equally reacting to light. EOMI. No scleral icterus. No conjunctival pallor. Normocephalic, atraumatic. No pharyngeal erythema. No thyromegaly. CARDIOVASCULAR: Minimal elevated JVD S1 and S2 present. I did not appreciate any S3 as well. PULMONARY: Chest is clear to auscultation, no wheezing or crackles. ABDOMEN: Soft, nontender, nondistended, normoactive bowel sounds. No palpable organomegaly. MUSCULOSKELETAL: No joint swelling or deformity. EXTREMITIES: Unchanged compared to yesterday. NEUROLOGICAL: Gross neurological examination did not reveal any focal deficits. SKIN: No rashes. Laboratory data: Basic metabolic profile is essentially within normal limits except for elevated BUN and creatinine. ASSESSMENT AND PLAN: 1. Sepsis secondary to right foot decubitus ulcer undergoing amputation procedure tomorrow, patient is on broad-spectrum antibiotics. 2. Bacteremia with multiple organisms including Staph ( ), Proteus vulgaris, Providencia and alcaligenes species, and patient repeat blood cultures are so far negative. 3. Type 2 diabetes mellitus. 4. Congestive heart failure, chronic systolic dysfunction with acute exacerbation. 5. End stage renal disease on hemodialysis, secondary to diabetic nephropathy. 6. Hypertension. PLAN: As mentioned in the interval history. Continue the rest of his home medications, hemodialysis tomorrow before surgery.
[2016-02-14 17:22] LABS: Glucose,Whole Blood 143 mg/dL (75-99)
[2016-02-14] MEDS: LISINOPRIL 5 MG TAB PO SCH (20:09)
[2016-02-14] MEDS: METOPROLOL TARTRATE 25 MG TAB PO SCH (20:09)
[2016-02-14] MEDS ORDERED: ACETAMINOPHEN TAB 325 MG TAB PO PRN (20:23)
[2016-02-14 21:06] LABS: Glucose,Whole Blood 169 mg/dL (75-99)
--- NOTE | 2016-02-15 07:46 | XR ---
EXAMINATION TYPE: XR chest 1V portable DATE OF EXAM: 02/15/2016 7:31 AM CLINICAL HISTORY: Difficulty breathing and weakness progress study. TECHNIQUE: Single AP portable upright view of the chest is obtained. COMPARISON: Chest x-ray from one day earlier and older studies back to March 17, 2015. CTA chest [facility] 2014 FINDINGS: There is persistent right basilar opacity consistent with infiltrate and/or atelectasis an d probable pleural effusion. Left lung remains predominantly clear. There is stable cardiomegaly with atherosclerotic thoracic aorta. Osseous structures are intact. IMPRESSION: Overall stable findings, persistent small to moderate-sized right pleural effusion and right basilar atelectasis and/or infiltrate all redemonstrated.
[2016-02-15 07:52] LABS: Glucose,Whole Blood 81 mg/dL (75-99)
[2016-02-15 07:58] LABS: CHCM 31.4; HCT 31.2 % (39.0-53.0); HDW 2.12; MCH 30.7 pg (25.0-35.0); MCV 95.8 fL (80.0-100.0); Mean Platelet Volume 7.8; RBC 3.26 m/uL (4.30-5.90); RDW 13.4 % (11.5-15.5); WBC 8.9 k/uL (3.8-10.6)
[2016-02-15] MEDS: FOLIC ACID-VIT B COMPLEX-VIT C 1 CAP PO SCH (08:11)
[2016-02-15] MEDS: PARoxetine 10 MG TAB PO SCH (08:11)
[2016-02-15] MEDS: FUROSEMIDE 40 MG TAB PO SCH ×2 (08:11→15:55)
[2016-02-15] MEDS: INSULIN LISPRO (humaLOG) 300 UNIT/3 ML VIAL SQ SCH ×4 (08:11→21:02)
[2016-02-15] MEDS: PIPERACILLIN-TAZOBACTAM 3.375 GM in DEXTROSE/WATER 1 50ML.BAG IVPB SCH ×2 (08:13→21:03)
[2016-02-15 08:21] LABS: Calcium 9.4 mg/dL (8.4-10.2); Potassium 4.4 mmol/L (3.5-5.1)
--- NOTE | 2016-02-15 11:59 | P.PN ---
Subjective Patient is seen in follow-up for end-stage renal disease. He is maintained on hemodialysis on a Sunday schedule. He presented to the hospital with weakness and is noted to have a right heel ulceration. Currently maintained on antibiotics. Appetite is good. No vomiting or diarrhea. Denies any chest pain or shortness of breath. He is scheduled to undergo a right below the knee amputation today. He is noted to have a right-sided pleural effusion for which she underwent hemodialysis yesterday and is receiving another treatment today. Vital signs are stable. General: The patient appeared well nourished and normally developed. HEENT: Head exam is unremarkable. Neck is without jugular venous distension. LUNGS: Lungs are clear to auscultation and percussion. Breath sounds decreased. HEART: Rate and Rhythm are regular. First and second heart sounds normal. No murmurs, rubs or gallops. ABDOMEN: Abdominal exam reveals normal bowel sounds. Non-tender and non- distended. No evidence of peritonitis. EXTREMITITES: No clubbing, cyanosis, or edema. Amputation noted. No obvious drainage from wound dressing. Objective - Vital Signs Vital signs: Vital Signs Temp 96.4 F L 02/15/16 07:00 Pulse 70 02/15/16 07:00 Resp 24 02/15/16 07:00 BP 184/83 02/15/16 07:00 Pulse Ox 100 02/15/16 07:00 Intake & Output 02/14/16 02/15/16 02/15/16 18:59 06:59 18:59 Intake Total 100 Output Total 0 Balance 0 100 Weight 85 kg 85 kg Intake: Oral 100 Output: Stool 0 Other: # Voids 1 - Labs CBC & Chem 7: 02/15/16 07:27 02/15/16 07:27 Labs: Abnormal Lab Results - Last 24 Hours (Table) 02/14/16 02/14/16 02/14/16 Range/Units 12:18 17:19 20:37 RBC (4.30-5.90) m/uL Hgb (13.0-17.5) gm/dL Hct (39.0-53.0) % BUN (9-20) mg/dL Creatinine (0.66-1.25) mg/dL POC Glucose (mg/dL) 152 H 143 H 169 H (75-99) mg/dL 02/15/16 02/15/16 Range/Units 07:27 07:27 RBC 3.26 L (4.30-5.90) m/uL Hgb 10.0 L (13.0-17.5) gm/dL Hct 31.2 L (39.0-53.0) % BUN 38 H (9-20) mg/dL Creatinine 5.20 H* (0.66-1.25) mg/dL POC Glucose (mg/dL) (75-99) mg/dL Microbiology - Last 24 Hours (Table) 02/09/16 22:23 Blood Culture - Preliminary Blood No Growth after 120 hours Assessment and Plan Plan: Assessment: #1. End-stage renal disease maintained on hemodialysis on a Sunday schedule via left upper extremity AV fistula. #2. Hypokalemia. Resolved. #3. Right foot ulcer. #4. Anemia of chronic kidney disease. Plan: Hemodialysis today with goal 3 L ultrafiltration. Nephrocaps daily. Antibiotics per infectious disease recommendations. Scheduled for right below the knee amputation today.
[2016-02-15] MEDS ORDERED: GELATIN SPONGE,ABSORB (SMALL) 1 EACH SPONGE ONE (12:00)
[2016-02-15 12:15] LABS: Glucose,Whole Blood 77 mg/dL (75-99)
--- NOTE | 2016-02-15 12:49 | XR ---
EXAMINATION TYPE: XR chest 1V portable DATE OF EXAM: 02/15/2016 12:42 PM CLINICAL HISTORY: Presurgical study. TECHNIQUE: Single AP portable upright view of the chest is obtained. COMPARISON: Chest x-ray from earlier today. FINDINGS: There is persistent right midlung and basilar opacity consistent with infiltrate and/or at electasis and probable pleural effusion. There is developing left midlung opacity consistent with kristen ma and/or infiltrate. There is cardiomegaly with atherosclerotic thoracic aorta redemonstrated. Osse ous structures are intact. IMPRESSION: Cardiomegaly with bilateral perihilar and right lower edema and/or infiltrates with worse valdemar of findings in the left lung noted.
[2016-02-15 13:23] LABS: Potassium 3.9 mmol/L (3.5-5.1)
[2016-02-15 13:49] LABS: INR 1.2 (<1.1); Prothrombin Time 12.3 sec (9.0-12.0)
--- NOTE | 2016-02-15 14:11 | P.PN ---
Progress Note - Text 65-year-old white male, history of chronic renal failure on dialysis history of severe PVD post left below-knee amputation in the past post transmetatarsal completion right foot the right foot has a gangrene changes involving the heel and this followed or smell noted popliteal posterior to dorsal would not palpable patient has a swelling of the right lower extremity with some pitting edema Option were discussed since patient has a poor circulation and there is a foul- smelling odor wound to the right heel which is extending to the lower extremity the best option would be above-knee amputation I have discussed this case was a 1 Bari who knows him very well from the past and he agrees that he will benefit from right above-knee amputation and patient agrees we will proceed thank you
[2016-02-15 15:13] LABS: Glucose,Whole Blood 72 mg/dL (75-99)
[2016-02-15] MEDS ORDERED: IV FLUID CONTINUATION 1,000 ML IV ONE (15:14)
[2016-02-15] MEDS ORDERED: KETAMINE 10 MG/ML 20 ML VIAL ONE (15:23)
[2016-02-15] MEDS ORDERED: MIDAZOLAM 2 MG/2 ML VIAL ONE (15:23)
[2016-02-15] MEDS ORDERED: DEXTROSE 50%-WATER 50 ML SYRINGE IVP ONE (17:55)
[2016-02-15] MEDS ORDERED: VANCOMYCIN 1,500 MG in SODIUM CHLORIDE 0.9% 250 ML IVPB ONE (18:00)
[2016-02-15 18:24] LABS: Glucose,Whole Blood 128 mg/dL (75-99)
[2016-02-15 18:24] LABS: Glucose,Whole Blood 66 mg/dL (75-99)
[2016-02-15 18:24] LABS: Glucose,Whole Blood 66 mg/dL (75-99)
[2016-02-15] MEDS: HYDROmorphone 1 MG/ML 1 ML SYRINGE IVP PRN ×2 (18:56→22:51)
--- NOTE | 2016-02-15 20:13 | PN ---
Patient has end-stage renal disease with right foot ulceration. Patient would undergo below-knee amputation. Patient had a chest x-ray which showed pulmonary edema, because of which his surgery was postponed. Repeat chest x-ray continues to show pulmonary edema, which puts him at a high risk for surgery. But apparently it looks like patient has to take that risk and go for surgery. Same thing was explained to the family. Dr. Sandy Kumar, the surgeon, wanted Pulmonary to evaluate the patient before surgery. Since the surgery is urgent and needed, I believe we have to take the high risk and go for surgery as optimization of his pulmonary function is difficult in his scenario, as patient is an end-stage renal disease patient, hemodialysis-dependent. Medications were reviewed. REVIEW OF SYSTEMS: CARDIOVASCULAR: No chest pain, no orthopnea, no PND, no palpitations. PULMONARY: Denied any shortness of breath. No cough or hemoptysis. GASTROINTESTINAL: No diarrhea, nausea or vomiting. No abdominal pain. Normoactive bowel sounds. NEUROLOGIC: No headaches, no weakness, no numbness. PHYSICAL EXAMINATION: VITAL SIGNS: Temperature 96.4, pulse of 75, respiratory rate of 20. Blood pressure is 185/89. Saturating at 100% on 2 L of oxygen by nasal cannula. GENERAL: The patient is alert and oriented x3, not in any acute distress. Well developed, well nourished. HEENT: Pupils are round and equally reacting to light. EOMI. No scleral icterus. No conjunctival pallor. Normocephalic, atraumatic. No pharyngeal erythema. No thyromegaly. CARDIOVASCULAR: S1 and S2 present. No murmurs, rubs, or gallops. PULMONARY: Chest is clear to auscultation, no wheezing or crackles. ABDOMEN: Soft, nontender, nondistended, normoactive bowel sounds. No palpable organomegaly. MUSCULOSKELETAL: No joint swelling or deformity. EXTREMITIES: Unchanged compared to yesterday. NEUROLOGICAL: Gross neurological examination did not reveal any focal deficits. SKIN: No rashes. LABORATORY DATA: BUN and creatinine remain elevated but fairly stable. ASSESSMENT AND PLAN: 1. Sepsis secondary to decubitus ulcer, undergoing above-knee amputation. Continue with broad-spectrum antibiotics. 2. Severe sepsis secondary to bacteremia with Staphylococcus hominis and Proteus vulgaris. Patient's wound cultures are all positive for providencia. Patient's bacteremia is secondary to extensive wounds in the right lower extremity. 3. Type 2 diabetes mellitus. 4. Congestive heart failure; chronic systolic dysfunction with acute exacerbation. Continue with hemodialysis and Lasix. That management I will leave up to Nephrology. 5. End-stage renal disease, hemodialysis-dependent, secondary to diabetic nephropathy. 6. Hypertension. For preoperative clearance, please refer to my dictation earlier as the interval history.
--- NOTE | 2016-02-15 20:51 | P.PN ---
Subjective 65-year-old male who has a complex medical history including end- stage renal disease with diabetes mellitus type 2 and severe peripheral vascular disease. 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 He's been followed in the outpatient setting in the wound healing center with podiatry and vascular surgery. He now has a marked worsening to the right foot at the heel. There is been a dry gangrenous area that is now much worse, it is malodorous, with swelling and extension of the erythema and fluctuance around the eschar. The patient is ill. Did not tolerate dialysis well. Developed fever, chills and rigors. Also some hypotension and was brought into hospital. Because of the significant infection to the right foot the infectious diseases consultation was requested the patient is now status post a right [id number]-wuk-[id number] amputation. [place] of some pain and not feeling well overall. States that it feels like the right leg weighs of thousand pounds. Objective - Vital Signs Vital signs: Vital Signs Temp 97 F L 02/15/16 17:05 Pulse 73 02/15/16 18:15 Resp 16 02/15/16 18:15 BP 179/88 02/15/16 18:15 Pulse Ox 96 02/15/16 18:15 Intake & Output 02/15/16 02/15/16 02/16/16 06:59 18:59 06:59 Intake Total 100 250 Output Total 100 Balance 100 150 Weight 85 kg 85 kg Intake: IV 250 Oral 100 Output: Estimated Blood Loss 100 Other: # Voids 1 0 - Exam 65-year-old male of thin build who seems to be uncomfortable. Has had recent chill and fever. HEENT: Anicteric conjunctiva are pink and moist nasal mucosa grossly intact without significant lesions, there is no thrush. Full denture Neck: The neck is supple without significant lymphadenopathy or thyromegaly. Lungs: Symmetric air entry without expiratory wheezes no vicky bronchial sounds dialysis catheter right anterior chest wall noted Heart: Irregular with an audible S1 and S2 no S3 soft S4 no murmur click or rub Abdomen: Positive bowel sounds soft and nontender without palpable masses or organomegaly. There was no guarding or rebound. Extremities: Upper extremities since of the fistula left arm that isn't functioning well. Right arm without abnormalities. Left lower extremities shows evidence of the below the knee amputation with residual limb intact. Right leg shows evidence of the [id number] amputation performed today. The postoperative dressing is not removed. Neuro: Awake alert oriented to person is still having affects of anesthesia. - Labs CBC & Chem 7: 02/15/16 07:27 02/15/16 12:41 Labs: Abnormal Lab Results - Last 24 Hours (Table) 02/14/16 02/15/16 02/15/16 Range/Units 20:37 07:27 07:27 RBC 3.26 L (4.30-5.90) m/uL Hgb 10.0 L (13.0-17.5) gm/dL Hct 31.2 L (39.0-53.0) % PT (9.0-12.0) sec BUN 38 H (9-20) mg/dL Creatinine 5.20 H* (0.66-1.25) mg/dL POC Glucose (mg/dL) 169 H (75-99) mg/dL 02/15/16 02/15/16 02/15/16 Range/Units 12:41 15:11 17:52 RBC (4.30-5.90) m/uL Hgb (13.0-17.5) gm/dL Hct (39.0-53.0) % PT 12.3 H (9.0-12.0) sec BUN (9-20) mg/dL Creatinine (0.66-1.25) mg/dL POC Glucose (mg/dL) 72 L 66 L (75-99) mg/dL 02/15/16 02/15/16 Range/Units 17:54 18:14 RBC (4.30-5.90) m/uL Hgb (13.0-17.5) gm/dL Hct (39.0-53.0) % PT (9.0-12.0) sec BUN (9-20) mg/dL Creatinine (0.66-1.25) mg/dL POC Glucose (mg/dL) 66 L 128 H (75-99) mg/dL Microbiology - Last 24 Hours (Table) 02/09/16 22:23 Blood Culture - Preliminary Blood No Growth after 120 hours Laboratory Results WBC 8.9 k/uL (3.8-10.6) 02/15/16 07:27 RBC 3.26 m/uL (4.30-5.90) L 02/15/16 07:27 Hgb 10.0 gm/dL (13.0-17.5) L 02/15/16 07:27 Hct 31.2 % (39.0-53.0) L 02/15/16 07:27 MCV 95.8 fL (80.0-100.0) 02/15/16 07:27 MCH 30.7 pg (25.0-35.0) 02/15/16 07:27 MCHC 32.0 g/dL (31.0-37.0) 02/15/16 07:27 RDW 13.4 % (11.5-15.5) 02/15/16 07:27 Plt Count 208 k/uL (150-450) 02/15/16 07:27 Neutrophils % 85 % 02/09/16 07:13 Lymphocytes % 6 % 02/09/16 07:13 Monocytes % 7 % 02/09/16 07:13 Eosinophils % 1 % 02/09/16 07:13 Basophils % 1 % 02/09/16 07:13 Neutrophils # 5.4 k/uL (1.3-7.7) 02/09/16 07:13 Lymphocytes # 0.4 k/uL (1.0-4.8) L 02/09/16 07:13 Monocytes # 0.5 k/uL (0-1.0) 02/09/16 07:13 Eosinophils # 0.0 k/uL (0-0.7) 02/09/16 07:13 Basophils # 0.0 k/uL (0-0.2) 02/09/16 07:13 PT 12.3 sec (9.0-12.0) H 02/15/16 12:41 INR 1.2 (<1.1) 02/15/16 12:41 APTT 27.2 sec (22.0-30.0) 02/08/16 18:17 Sodium 142 mmol/L (137-145) 02/15/16 12:41 Potassium 3.9 mmol/L (3.5-5.1) 02/15/16 12:41 Chloride 99 mmol/L (98-107) 02/15/16 12:41 Carbon Dioxide 25 mmol/L (22-30) 02/15/16 12:41 Anion Gap 18 mmol/L 02/15/16 12:41 BUN 38 mg/dL (9-20) H 02/15/16 07:27 Creatinine 5.20 mg/dL (0.66-1.25) H* 02/15/16 07:27 Est GFR (MDRD) Af Amer 14 (>60 ml/min/1.73 sqM) 02/15/16 07:27 Est GFR (MDRD) Non-Af 11 (>60 ml/min/1.73 sqM) 02/15/16 07:27 Glucose 87 mg/dL (74-99) 02/15/16 07:27 POC Glucose (mg/dL) 128 mg/dL (75-99) H 02/15/16 18:14 POC Glu Staff Training And Development Manager ID Zonia Reddy 02/15/16 18:[address] Glu mg/dL 117 mg/dL 02/09/16 07:13 Hemoglobin A1c 5.7 % (4.2-6.1) 02/09/16 07:13 Plasma Lactic Acid Justice 1.2 mmol/L (0.7-2.0) 02/09/16 01:06 Calcium 9.4 mg/dL (8.4-10.2) 02/15/16 07:27 Phosphorus 4.1 mg/dL (2.5-4.5) 02/10/16 08:17 Magnesium 1.9 mg/dL (1.6-2.3) 02/08/16 18:17 Total Bilirubin 1.2 mg/dL (0.2-1.3) 02/08/16 18:17 AST 22 U/L (17-59) 02/08/16 18:17 ALT 24 U/L (21-72) 02/08/16 18:17 Alkaline Phosphatase 139 U/L (38-126) H 02/08/16 18:17 Total Creatine Kinase 44 U/L (55-170) L 02/08/16 18:17 CK-MB (CK-2) 1.3 ng/mL (0.0-2.4) 02/08/16 18:17 CK-MB (CK-2) Rel Index 3.0 02/08/16 18:17 Troponin I 0.076 ng/mL (0.000-0.034) H* 02/09/16 17:40 Total Protein 6.6 g/dL (6.3-8.2) 02/08/16 18:17 Albumin 3.2 g/dL (3.5-5.0) L 02/08/16 18:17 Random Vancomycin 24.5 ug/mL 02/14/16 05:19 Hep Bs Antigen Negative 02/10/16 08:17 Hep Bs Antibody Negative (Negative) 02/10/16 08:17 Hep B Core IgM Ab NEGATIVE 02/10/16 08:17 Blood Type A Positive 02/14/16 07:55 Blood Type Recheck No 02/14/16 07:55 Antibody Screen NEGATIVE 02/14/16 07:55 Crossmatch See Detail 02/14/16 07:55 Spec Expiration Date 02/17/2016 - 2965 02/14/16 07:55 Microbiology 02/09/16 22:23 Blood Blood Culture - Preliminary No Growth after 120 hours 02/08/16 18:17 Blood Blood Culture - Final 02/08/16 18:17 Heel - Right Gram Stain - Final 02/08/16 18:17 Heel - Right Wound Culture - Final Providencia rettgeri Alcaligenes species 02/08/16 18:17 Blood Blood Culture Gram Stain - Final 02/08/16 18:17 Blood Blood Culture - Final Staph hominis sub sp. hominis Proteus vulgaris Assessment and Plan (1) Atherosclerosis of [place] arteries of right leg with ulceration of heel and midfoot Narrative/Plan: 65-year-old male presents to Hospital because of significant difficulties with his right foot at the heel with increasing difficulties from the eschar and no evidence of worsening infection. Given following the wound healing center because been quite some time since he's been there. She's had difficulty with transportation. He would became somewhat ill at dialysis yesterday and is now much more ill. Is evidence of sepsis with the infection from the right foot. There is evidence of bacteremia as well as evidence of gram-negative bacilli from the wound. Vancomycin is being dosed by the pharmacy services. Unasyn was started but will be changed piperacillin tazobactam given the fact that gram-negative bacilli has been seen no be concerned to pseudomonas or other more resistant gram-negative organisms given his history especially dialysis. Continue ongoing local wound care to the site at this time till be a nonstick dressing and bulky dressing to absorb any drainage and to pad the area. We'll also observe odor. Vascular surgery consult occurred with Dr. Dee. He is referred to case to his current vascular surgery Dr. Kumar. Given that the leg is now been amputated will not need long-term intravenous antibiotic therapy. We'll plan current IV therapy for 72 hours in the postoperative time frame. Status: Acute (2) Chronic renal failure Status: Acute (3) Type 2 diabetes mellitus with foot ulcer and gangrene Status: Acute
[2016-02-15 21:02] LABS: Glucose,Whole Blood 111 mg/dL (75-99)
[2016-02-15] MEDS: LISINOPRIL 5 MG TAB PO SCH (21:03)
[2016-02-15] MEDS: METOPROLOL TARTRATE 25 MG TAB PO SCH (21:03)
[2016-02-16] MEDS: HYDROmorphone 1 MG/ML 1 ML SYRINGE IVP PRN ×4 (05:50→23:25)
[2016-02-16 06:53] LABS: Glucose,Whole Blood 102 mg/dL (75-99)
[2016-02-16] MEDS: INSULIN LISPRO (humaLOG) 300 UNIT/3 ML VIAL SQ SCH ×4 (07:35→21:12)
--- NOTE | 2016-02-16 08:56 | OP ---
DATE OF SERVICE: SURGEON: MARLENI GONZALEZ MD INKER MACHINE: PREOPERATIVE DIAGNOSIS: Infected gangrene right foot with peripheral vascular disease. POSTOPERATIVE DIAGNOSIS: Infected gangrene right foot with peripheral vascular disease. OPERATION: Right above knee amputation. ANESTHESIA: Spinal ESTIMATED BLOOD LOSS: SPECIMENS REMOVED: COMPLICATIONS: OPERATIVE FINDINGS: DESCRIPTION OF PROCEDURE: This patient was brought to the operating room. This patient had a tarsal metatarsal amputation done in the past. He developed wet gangrene of right foot. Patient has severe peripheral vascular disease. He also had a left BK amputation done in the past. We discussed about above the knee amputation because of infected wound on the heel and also severe PVD. Patient was brought into the operating room. Under spinal, right leg was prepped and draped in the sterile manner. Incision was made on the anterior aspect of the leg, deepened through skin, fat, and fascia. Anterior compartment muscles were divided that would reach the femur. Then the medial compartment muscles were divided and after that, we identified the femoral artery and femoral vein, which was divided and suture-ligated with 0 Prolene. After that, lateral compartment muscles were divided and then the posterior flap incision was made, deepened through the skin, fat, and fascia. Posterior compartment muscles were divided. After that, I used the hand saw and electric saw and femur was divided. After that, we checked the hemostasis, hemostasis was well controlled and anterior and posterior compartment muscles were approximated with 0 Vicryl with interrupted suture and fascia was approximated with 0 Vicryl with interrupted suture and skin was closed with 4-0 nylon with mattress and interrupted suture. Dressing applied. Patient tolerated the procedure well.
[2016-02-16] MEDS: PIPERACILLIN-TAZOBACTAM 3.375 GM in DEXTROSE/WATER 1 50ML.BAG IVPB SCH ×2 (09:06→21:03)
[2016-02-16] MEDS: PARoxetine 10 MG TAB PO SCH ×2 (09:06→09:09)
[2016-02-16] MEDS: FUROSEMIDE 40 MG TAB PO SCH ×2 (09:06→16:24)
[2016-02-16] MEDS: FOLIC ACID-VIT B COMPLEX-VIT C 1 CAP PO SCH ×2 (09:06→09:08)
--- NOTE | 2016-02-16 10:06 | P.CRDCN ---
History of Present Illness Consult date: 02/16/16 Reason for Consult (text): Post-op monitoring following AKA Chief complaint: Post-op right AKA History of present illness: This is a 65-year-old gentleman with a known history of end-stage renal disease , on hemodialysis for approximately 7 years, right foot ulceration, prior left BKA in 2011, cardiomyopathy, CHF, hypertension, diabetes, and hyperlipidemia. Patient presented to the emergency department on 02/08/2016 with complaints of weakness and right foot ulcerations. He subsequently underwent right AKA by Dr. Dilip Kumar on 02/15/2016. Surgery was delayed due to finding of pulmonary edema on a chest x-ray preoperatively. EKG on admission did show atrial fibrillation with a controlled ventricular response and a left bundle branch block, similar to EKG done in February 2015. We were asked to see the patient postoperatively. Upon examination this morning, patient is slightly sedated on pain medications. He says he is currently quite comfortable. Continues to have incisional pain. Denies any complaints of shortness of breath , chest discomfort, dizziness, syncope or palpitations. He is currently on Lasix 40 mg by mouth twice a day, Raymond and Dilaudid as needed for pain, lisinopril 5 mg by mouth daily at bedtime, IV antibiotics and metoprolol tartrate 25 mg by mouth daily at bedtime. Past Medical History Past Medical History: Diabetes Mellitus, Dialysis, Hypertension, Liver Disease, Renal Disease, Vascular Disorder Additional Past Medical History / Comment(s): Other HX: Hemodialysis. 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 History of Any Multi-Drug Resistant Organisms: None Reported Past Surgical History: Adenoidectomy, Orthopedic Surgery, Tonsillectomy Additional Past Surgical History / Comment(s): L BKA, R foot toes all amputated by Dr. Dee. Fistula L forearm for hemodialysis Past Anesthesia/Blood Transfusion Reactions: No Reported Reaction Past Psychological History: No Psychological Hx Reported Additional Psychological History / Comment(s): Pt lives alone in home. He has a L lower leg prosthesis. Smoking Status: Never smoker Past Alcohol Use History: None Reported Past Drug Use History: None Reported - Past Family History Father Family Medical History: Coronary Artery Disease (CAD) Additional Family Medical History / Comment(s): Father is . He lived to the age of 90 yrs. Mother Family Medical History: No Reported History Additional Family Medical History / Comment(s): Mother is . She lived to the age of 87 yrs. Medications and Allergies Home Medications Medication Instructions Recorded Confirmed Type Furosemide 40 mg PO BID 02/18/14 02/08/16 History Lisinopril 5 mg PO DAILY 02/18/14 02/08/16 History HYDROcodone/APAP 5-325MG [Raymond 1 tab PO BID PRN 02/08/16 02/08/16 History 5-325] Metoprolol Tartrate [Lopressor] 25 mg PO DAILY 02/08/16 02/08/16 History Allergies Allergy/AdvReac Type Severity Reaction Status Date / Time No Known Allergies Allergy Verified 02/08/16 17:39 Physical Exam Vitals: Vital Signs Temp Pulse Resp BP Pulse Ox 02/16/16 07:00 98.2 F 75 16 125/78 98 02/15/16 23:00 97.1 F L 68 18 141/67 97 02/15/16 21:00 79 151/70 02/15/16 20:30 83 156/72 02/15/16 20:00 79 147/71 02/15/16 19:30 69 132/69 02/15/16 19:15 73 141/68 02/15/16 19:00 80 157/74 02/15/16 18:45 79 149/76 02/15/16 18:15 73 16 179/88 96 02/15/16 17:55 75 16 168/99 100 02/15/16 17:40 73 16 170/90 96 02/15/16 17:25 72 16 169/89 96 02/15/16 17:05 97 F L 66 18 131/74 96 02/15/16 15:07 75 20 185/89 Intake and Output 02/15/16 02/16/16 02/16/16 22:59 06:59 14:59 Intake Total 250 Output Total 100 Balance 150 Intake: IV 250 Output: Estimated Blood Loss 100 Other: # Voids 0 0 Weight 80 kg PHYSICAL EXAMINATION: HEENT: Head is atraumatic, normocephalic. Pupils equal, round. Neck is supple. There is no elevated jugular venous pressure. HEART EXAMINATION: Heart sounds irregularly irregular, S1 and S2 normal. No murmur or gallop heard. CHEST EXAMINATION: Lungs are clear to auscultation and precussion. No chest wall tenderness is noted on palpation or with deep breathing. ABDOMEN: Soft, nontender. Bowel sounds are heard. No organomegaly noted. EXTREMITIES: Prior left BKA and more recent right AKA, dressing dry and intact. NEUROLOGIC patient is awake but drowsy and oriented x3. . Results 02/15/16 07:27 02/15/16 12:41 Coagulation 02/15/16 Range/Units 12:41 PT 12.3 H (9.0-12.0) sec Comprehensive Metabolic Panel 02/15/16 Range/Units 12:41 Sodium 142 (137-145) mmol/L Potassium 3.9 (3.5-5.1) mmol/L Chloride 99 (98-107) mmol/L Carbon Dioxide 25 (22-30) mmol/L Current Medications Generic Name Dose Route Start Last Admin Trade Name Freq PRN Reason Stop Dose Admin Acetaminophen 650 mg 02/14/16 20:23 02/15/16 04:29 Tylenol Tab PO 650 mg Q6HR PRN Administration Fever and/ or Pain Acetaminophen/Hydrocodone Bitart 1 each 02/09/16 13:42 02/10/16 06:10 Raymond 5-325 PO 1 each BID PRN Administration Pain Calcium Carbonate/Glycine 1,000 mg 02/09/16 17:40 02/13/16 15:28 Tums PO 500 mg TID PRN Administration Heartburn Furosemide 40 mg 02/09/16 16:00 02/16/16 09:06 Lasix PO 40 mg BID@0900,1600 SIMRAN Administration Hydromorphone HCl 1 mg 02/15/16 17:37 02/16/16 05:50 Dilaudid IVP 1 mg Q4HR PRN Administration Pain Piperacillin/Tazobactam/ 50 mls @ 12.5 mls/hr 02/09/16 22:15 02/16/16 09:06 Dextrose 3.375 gm/ IV Solution IVPB 12.5 mls/hr Q12HR SIMRAN Administration Insulin Human Lispro 0 unit 02/09/16 07:30 02/16/16 07:35 Humalog SQ Not Given ACHS SIMRAN Protocol Lisinopril 5 mg 02/09/16 21:00 02/15/16 21:03 Zestril PO 5 mg HS SIMRAN Administration Metoprolol Tartrate 25 mg 02/09/16 21:00 02/15/16 21:03 Lopressor PO 25 mg HS SIMRAN Administration Miscellaneous Information 1 each 02/08/16 20:32 Pharmacy To Dose Iv Vancomycin MISCELLANE DIRECTED PRN Per Protocol Multivit/Ca Carb/B Cmplx/FA/Prenat 1 each 02/09/16 10:00 02/16/16 09:08 Nephrocaps PO Not Given DAILY SIMRAN Paroxetine HCl 10 mg 02/13/16 09:00 02/16/16 09:09 Paxil PO Not Given DAILY SIMRAN Intake and Output 02/15/16 02/16/16 02/16/16 22:59 06:59 14:59 Intake Total 250 Output Total 100 Balance 150 Intake: IV 250 Output: Estimated Blood Loss 100 Other: # Voids 0 0 Weight 80 kg 02/15/16 07:27 02/15/16 12:41 EKG Interpretations (text) Atrial fibrillation with controlled ventricular response and a left bundle branch block Assessment and Plan Plan: Assessment and plan #1 right foot ulcer, status post right AKA #2 end-stage renal disease, on hemodialysis #3 cardiomyopathy, last available echocardiogram report shows an ejection fraction between 35-40% #4 hypertension #5 diabetes mellitus #6 hyperlipidemia #7 atrial fibrillation, likely chronic From cardiology standpoint, medications were reviewed and we will continue the same. The patient appears to be doing well postoperatively. We will continue to see the patient on an as-needed basis. Please do not hesitate to call with any questions. The above dictated assessment and findings were discussed with signing physician. The impression and plan of care have been directed as dictated. Tamara Person, Nurse Practitioner, acting as scribe for signing physician.
--- NOTE | 2016-02-16 10:12 | P.PN ---
Subjective Patient is seen in follow-up for end-stage renal disease. He is maintained on hemodialysis on a Sunday schedule. He presented to the hospital with weakness and is noted to have a right heel ulceration. Currently maintained on antibiotics. He underwent right [id number] amputation on February 14. Appetite is fair. No vomiting or diarrhea. Denies any chest pain or shortness of breath. Vital signs are stable. General: The patient appeared well nourished and normally developed. HEENT: Head exam is unremarkable. Neck is without jugular venous distension. LUNGS: Lungs are clear to auscultation and percussion. Breath sounds decreased. HEART: Rate and Rhythm are regular. First and second heart sounds normal. No murmurs, rubs or gallops. ABDOMEN: Abdominal exam reveals normal bowel sounds. Non-tender and non- distended. No evidence of peritonitis. EXTREMITITES: No clubbing, cyanosis, or edema. Amputation noted. No obvious drainage from wound dressing. Objective - Vital Signs Vital signs: Vital Signs Temp 98.2 F 02/16/16 07:00 Pulse 75 02/16/16 07:00 Resp 16 02/16/16 07:00 BP 125/78 02/16/16 07:00 Pulse Ox 98 02/16/16 07:00 Intake & Output 02/15/16 02/16/16 02/16/16 18:59 06:59 18:59 Intake Total 250 Output Total 100 Balance 150 Weight 85 kg 80 kg Intake: IV 250 Output: Estimated Blood Loss 100 Other: # Voids 0 0 - Labs CBC & Chem 7: 02/15/16 07:27 02/15/16 12:41 Labs: Abnormal Lab Results - Last 24 Hours (Table) 02/15/16 02/15/16 02/15/16 Range/Units 12:41 15:11 17:52 PT 12.3 H (9.0-12.0) sec POC Glucose (mg/dL) 72 L 66 L (75-99) mg/dL 02/15/16 02/15/16 02/15/16 Range/Units 17:54 18:14 21:00 PT (9.0-12.0) sec POC Glucose (mg/dL) 66 L 128 H 111 H (75-99) mg/dL 02/16/16 Range/Units 06:52 PT (9.0-12.0) sec POC Glucose (mg/dL) 102 H (75-99) mg/dL Microbiology - Last 24 Hours (Table) 02/09/16 22:23 Blood Culture - Final Blood No Growth after 144 hours Assessment and Plan Plan: Assessment: #1. End-stage renal disease maintained on hemodialysis on a Sunday schedule via left upper extremity AV fistula. #2. Hypokalemia. Resolved. #3. Right foot ulcer status post right [id number] amputation on February 14. #4. Anemia of chronic kidney disease. Plan: Hemodialysis tomorrow with goal 3 L ultrafiltration. Nephrocaps daily. Antibiotics per infectious disease recommendations.
--- NOTE | 2016-02-16 11:26 | P.CNPUL ---
History of Present Illness Consult date: 02/16/16 Requesting physician: Brionna Dover Reason for consult: abnormal CXR/CT Chief complaint: Lower extremity weakness of the right leg History of present illness: This is a pleasant 65-year-old gentleman who follows with Dr. Leyva as his primary care physician. 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 He denies any previous history of lung disease and is a lifelong nonsmoker. He had presented here back on 02/16/2016 after having significant weakness and shortness of breath following a dialysis treatment. His initial chest x-ray revealed evidence of pulmonary edema and he was initiated on Lasix. He had been receiving his dialysis as scheduled. He was also found to have a significant ulcer on his right lower extremity with dry eschar and foul-smelling odor and was recommended right qjzqr-yqk-vrjf amputation by Dr. Kumar. This was performed yesterday. We are consulted today 02/16/2016 for worsening chest x-ray with right-sided consolidation and pleural effusions with cardiomegaly and diffuse interstitial pattern bilaterally. The patient is seen resting fairly comfortably in bed on the regular medical floor. He is awake and alert in no acute distress. He denies any worsening shortness of breath, cough or congestion. He is maintaining good O2 saturations in the upper 90s on 3 L/m per nasal cannula. Currently afebrile. No leukocytosis the last several days. He has been maintained on vancomycin and Zosyn. Review of Systems [facility] point review of system was conducted. All negative other than as mentioned in the HPI. Past Medical History Past Medical History: Diabetes Mellitus, Dialysis, Hypertension, Liver Disease, Renal Disease, Vascular Disorder Additional Past Medical History / Comment(s): Other HX: Hemodialysis. 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 History of Any Multi-Drug Resistant Organisms: None Reported Past Surgical History: Adenoidectomy, Orthopedic Surgery, Tonsillectomy Additional Past Surgical History / Comment(s): L BKA, R foot toes all amputated by Dr. Dee. Fistula L forearm for hemodialysis Past Anesthesia/Blood Transfusion Reactions: No Reported Reaction Past Psychological History: No Psychological Hx Reported Additional Psychological History / Comment(s): Pt lives alone in home. He has a L lower leg prosthesis. Smoking Status: Never smoker Past Alcohol Use History: None Reported Past Drug Use History: None Reported - Past Family History Father Family Medical History: Coronary Artery Disease (CAD) Additional Family Medical History / Comment(s): Father is . He lived to the age of 90 yrs. Mother Family Medical History: No Reported History Additional Family Medical History / Comment(s): Mother is . She lived to the age of 87 yrs. Medications and Allergies Home Medications Medication Instructions Recorded Confirmed Type Furosemide 40 mg PO BID 02/18/14 02/08/16 History Lisinopril 5 mg PO DAILY 02/18/14 02/08/16 History HYDROcodone/APAP 5-325MG [[place] 1 tab PO BID PRN 02/08/16 02/08/16 History 5-325] Metoprolol Tartrate [Lopressor] 25 mg PO DAILY 02/08/16 02/08/16 History Allergies Allergy/AdvReac Type Severity Reaction Status Date / Time No Known Allergies Allergy Verified 02/08/16 17:39 Physical Exam Vitals: Vital Signs Temp Pulse Resp BP Pulse Ox 02/16/16 07:00 98.2 F 75 16 125/78 98 02/15/16 23:00 97.1 F L 68 18 141/67 97 02/15/16 21:00 79 151/70 02/15/16 20:30 83 156/72 02/15/16 20:00 79 147/71 02/15/16 19:30 69 132/69 02/15/16 19:15 73 141/68 02/15/16 19:00 80 157/74 02/15/16 18:45 79 149/76 02/15/16 18:15 73 16 179/88 96 02/15/16 17:55 75 16 168/99 100 02/15/16 17:40 73 16 170/90 96 02/15/16 17:25 72 16 169/89 96 02/15/16 17:05 97 F L 66 18 131/74 96 02/15/16 15:07 75 20 185/89 Intake and Output 02/15/16 02/16/16 02/16/16 22:59 06:59 14:59 Intake Total 250 Output Total 100 Balance 150 Intake: IV 250 Output: Estimated Blood Loss 100 Other: # Voids 0 0 Weight 80 kg GENERAL EXAM: Alert, comfortable in no apparent distress. HEAD: Normocephalic. EYES: Normal reaction of pupils, equal size. NOSE: Clear with pink turbinates. THROAT: No erythema or exudates. NECK: No masses, no significant JVD. CHEST: No chest wall deformity. LUNGS: Equal air entry with basilar crackles more so on the right. CVS: S1 and S2 normal with systolic murmur, regular rhythm. ABDOMEN: No hepatosplenomegaly, normal bowel sounds, no guarding or rigidity. Extremities: There is a left upper extremity shunt with thrill, left below the knee amputation and recent right gachy-xik-awth amputation. Results - Laboratory Findings CBC and BMP: 02/15/16 07:27 02/15/16 12:41 PT/INR, D-dimer PT 12.3 sec (9.0-12.0) H 02/15/16 12:41 INR 1.2 (<1.1) 02/15/16 12:41 Abnormal lab findings: Abnormal Labs 02/08/16 02/09/16 02/09/16 22:38 07:06 07:13 RBC 3.51 L Hgb 10.4 L Hct 34.0 L MCHC 30.4 L Lymphocytes # 0.4 L PT Sodium Potassium Chloride BUN Creatinine Glucose POC Glucose (mg/dL) 109 H 135 H Troponin I Crossmatch 02/09/16 02/09/16 02/09/16 07:13 07:13 12:30 RBC Hgb Hct MCHC Lymphocytes # PT Sodium Potassium 3.2 L Chloride 96 L BUN 21 H Creatinine 4.40 H Glucose 144 H POC Glucose (mg/dL) 123 H Troponin I 0.087 H* Crossmatch 02/09/16 02/09/16 02/09/16 16:52 17:40 21:49 RBC Hgb Hct MCHC Lymphocytes # PT Sodium Potassium Chloride BUN Creatinine Glucose POC Glucose (mg/dL) 186 H 74 L Troponin I 0.076 H* Crossmatch 02/10/16 02/10/16 02/10/16 07:06 08:17 11:38 RBC Hgb Hct MCHC Lymphocytes # PT Sodium Potassium Chloride 94 L BUN 26 H Creatinine 5.73 H* Glucose 157 H POC Glucose (mg/dL) 126 H 177 H Troponin I Crossmatch 02/10/16 02/10/16 02/11/16 17:19 21:38 07:17 RBC Hgb Hct MCHC Lymphocytes # PT Sodium Potassium Chloride BUN Creatinine Glucose POC Glucose (mg/dL) 115 H 135 H 109 H Troponin I Crossmatch 02/11/16 02/11/16 02/11/16 12:16 17:17 20:19 RBC Hgb Hct MCHC Lymphocytes # PT Sodium Potassium Chloride BUN Creatinine Glucose POC Glucose (mg/dL) 178 H 113 H 156 H Troponin I Crossmatch 02/12/16 02/12/16 02/12/16 07:03 07:21 07:21 RBC 3.34 L Hgb 10.1 L Hct 32.2 L MCHC Lymphocytes # PT Sodium 136 L Potassium Chloride 95 L BUN 40 H Creatinine 5.82 H* Glucose 111 H POC Glucose (mg/dL) 109 H Troponin I Crossmatch 02/12/16 02/12/16 02/12/16 11:57 17:16 21:01 RBC Hgb Hct MCHC Lymphocytes # PT Sodium Potassium Chloride BUN Creatinine Glucose POC Glucose (mg/dL) 176 H 131 H 160 H Troponin I Crossmatch 02/13/16 02/13/16 02/13/16 06:43 11:44 17:25 RBC Hgb Hct MCHC Lymphocytes # PT Sodium Potassium Chloride BUN Creatinine Glucose POC Glucose (mg/dL) 104 H 195 H 192 H Troponin I Crossmatch 02/13/16 02/14/16 02/14/16 21:33 04:51 05:19 RBC Hgb Hct MCHC Lymphocytes # PT Sodium Potassium Chloride 96 L BUN Creatinine Glucose POC Glucose (mg/dL) 124 H 105 H Troponin I Crossmatch 02/14/16 02/14/16 02/14/16 07:55 07:55 09:36 RBC 3.16 L Hgb 9.8 L Hct 30.5 L MCHC Lymphocytes # PT 12.4 H Sodium Potassium Chloride BUN Creatinine Glucose POC Glucose (mg/dL) Troponin I Crossmatch See Detail 02/14/16 02/14/16 02/14/16 12:18 17:19 20:37 RBC Hgb Hct MCHC Lymphocytes # PT Sodium Potassium Chloride BUN Creatinine Glucose POC Glucose (mg/dL) 152 H 143 H 169 H Troponin I Crossmatch 02/15/16 02/15/16 02/15/16 07:27 07:27 12:41 RBC 3.26 L Hgb 10.0 L Hct 31.2 L MCHC Lymphocytes # PT 12.3 H Sodium Potassium Chloride BUN 38 H Creatinine 5.20 H* Glucose POC Glucose (mg/dL) Troponin I Crossmatch 02/15/16 02/15/16 02/15/16 15:11 17:52 17:54 RBC Hgb Hct MCHC Lymphocytes # PT Sodium Potassium Chloride BUN Creatinine Glucose POC Glucose (mg/dL) 72 L 66 L 66 L Troponin I Crossmatch 02/15/16 02/15/16 02/16/16 18:14 21:00 06:52 RBC Hgb Hct MCHC Lymphocytes # PT Sodium Potassium Chloride BUN Creatinine Glucose POC Glucose (mg/dL) 128 H 111 H 102 H Troponin I Crossmatch - Diagnostic Findings Chest x-ray: image reviewed Assessment and Plan Plan: Impression: #1 Sepsis with bacteremia including Staphylococcus hominis and Proteus vulgaris secondary to a right lower extremity wound positive for Providencia rettgeri and Alcaligenes species. #2 Severe peripheral vascular disease status post right nyfdt-bfo-cnwl amputee, postoperative day #1. #3 Acute exacerbation of chronic systolic congestive heart failure with cardiomyopathy and estimated ejection fraction of 35-40% in February 2014. #4 Acute hypoxic respiratory failure secondary to fluid volume overload and possible bilateral infiltrates/pneumonia with development of a left midlung opacity on today's chest x-ray. #5 Moderate to severe pulmonary hypertension, RVSP 63.5 mmHg. #6 Acute on chronic end-stage renal failure, receiving hemodialysis on Sundays. #7 Diabetes mellitus, type II. #8 Diabetic nephropathy. #9 Chronic anemia secondary to chronic renal disease. Current hemoglobin 10.0. #10 Hypertension. Plan: The patient was seen and evaluated by Dr. Courtney. His chest x-ray and labs were reviewed. There is definitely increased opacities bilaterally. We'll repeat a chest x-ray in the a.m. If no significant improvement we'll plan for bronchoscopy with BAL. In the interim we'll continue with bronchodilators, triple antibiotics, and diuretics. We will continue to follow and make further recommendations based on his clinical status.
[2016-02-16 12:13] LABS: Glucose,Whole Blood 98 mg/dL (75-99)
--- NOTE | 2016-02-16 14:53 | XR ---
EXAMINATION TYPE: XR chest 1V portable DATE OF EXAM: 02/16/2016 1:41 PM Comparison: 02/15/2016 Clinical History: 65 year-old male shortness of breath Findings: Heart remains mildly enlarged. There is pericardial calcifications. Prominent vasculature remain prom inent and indistinct. Perihilar opacities continue with extensive opacity throughout the right mid an d lower lung. Impression: Overall stable exam. Correlate for CHF with asymmetric pulmonary edema and likely right pleural effus ion. Follow-up to ensure clearance given the extensive opacity throughout the right lung.
[2016-02-16 17:11] LABS: Glucose,Whole Blood 86 mg/dL (75-99)
[2016-02-16] MEDS ORDERED: FUROSEMIDE 10 MG/ML 4 ML VIAL IV STA (18:18)
[2016-02-16] MEDS: IPRATROPIUM-ALBUTEROL 3 ML NEB INHALATION SCH ×2 (19:25→19:32)
[2016-02-16] MEDS: METOPROLOL TARTRATE 25 MG TAB PO SCH (21:03)
[2016-02-16] MEDS: LISINOPRIL 5 MG TAB PO SCH (21:03)
[2016-02-16 21:13] LABS: Glucose,Whole Blood 106 mg/dL (75-99)
[2016-02-17 02:06] LABS: Glucose,Whole Blood 100 mg/dL (75-99)
[2016-02-17] MEDS: HYDROmorphone 1 MG/ML 1 ML SYRINGE IVP PRN ×3 (05:16→19:49)
[2016-02-17 07:04] LABS: Glucose,Whole Blood 101 mg/dL (75-99)
--- NOTE | 2016-02-17 07:22 | XR ---
EXAMINATION TYPE: XR chest 1V DATE OF EXAM: 02/17/2016 7:16 AM CLINICAL HISTORY: Difficulty breathing progress study. TECHNIQUE: Single AP portable upright view of the chest is obtained. COMPARISON: Chest x-ray from one day earlier and older studies FINDINGS: There is persistent lower lung opacity right worse than left consistent with infiltrates a nd/or edema with suspected small to moderate-sized right pleural effusion. Cardiac silhouette size is stable and enlarged with atherosclerotic thoracic aorta and central vascular congestion redemonstrat ed. Osseous structures are intact. IMPRESSION: Overall stable findings since one day earlier, there is right greater than left lower amanda g infiltrate and/or edema with fairly moderate central vascular congestion identified more prominent since admission studies, background of cardiomegaly is seen. Favor CHF exacerbation.
[2016-02-17] MEDS: INSULIN LISPRO (humaLOG) 300 UNIT/3 ML VIAL SQ SCH ×4 (07:40→22:17)
[2016-02-17] MEDS: IPRATROPIUM-ALBUTEROL 3 ML NEB INHALATION SCH ×3 (08:11→19:39)
[2016-02-17] MEDS: PIPERACILLIN-TAZOBACTAM 3.375 GM in DEXTROSE/WATER 1 50ML.BAG IVPB SCH ×2 (08:29→22:16)
[2016-02-17] MEDS: PARoxetine 10 MG TAB PO SCH (08:30)
[2016-02-17] MEDS: FOLIC ACID-VIT B COMPLEX-VIT C 1 CAP PO SCH (08:30)
[2016-02-17] MEDS: FUROSEMIDE 40 MG TAB PO SCH ×2 (08:30→16:37)
--- NOTE | 2016-02-17 09:18 | P.PN ---
Progress Note - Text 66-year-old white male, history of chronic or failure, history of peripheral vascular disease, post right above-knee amputation patient is having dialysis this dressings intact and we will change her dressing continue with IV antibiotic patient need bedside physical therapy
--- NOTE | 2016-02-17 10:41 | P.PN ---
Subjective This is a pleasant 65-year-old gentleman who follows with Dr. Leyva as his primary care physician. 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 He denies any previous history of lung disease and is a lifelong nonsmoker. He had presented here back on 02/16/2016 after having significant weakness and shortness of breath following a dialysis treatment. His initial chest x-ray revealed evidence of pulmonary edema and he was initiated on Lasix. He had been receiving his dialysis as scheduled. He was also found to have a significant ulcer on his right lower extremity with dry eschar and foul-smelling odor that cultured positive for Providencia rettgeri and Alcaligenes species and was recommended right ejdzh-caf-jkui amputation by Dr. Kumar. This was performed 12/16/2015. His blood cultures were positive for Staphylococcus hominis and Proteus vulgaris. We were consulted 02/16/2016 for worsening chest x-ray with right-sided consolidation and pleural effusions with cardiomegaly and diffuse interstitial pattern bilaterally. The patient is seen again today 02/17/2016 in follow-up. He is resting fairly comfortably in bed. He is awake and alert in no acute distress. He denies any worsening shortness of breath, cough or congestion. He is maintaining good O2 saturations in the upper 90s on 3 L/m per nasal cannula. Currently afebrile. He has been maintained on vancomycin and Zosyn. Today's follow-up chest x-ray reveals stable overall findings as compared to yesterday's. There remains a right greater than left lower lung infiltrate/edema and moderate central vascular congestion with cardiomegaly favoring congestive heart failure. He remains on Lasix 40 mg twice a day. He is due for dialysis today. Objective - Vital Signs Vital signs: Vital Signs Temp 98.6 F 02/17/16 07:00 Pulse 76 02/17/16 08:21 Resp 16 02/17/16 07:00 BP 140/73 02/17/16 07:00 Pulse Ox 96 02/17/16 08:11 Intake & Output 02/16/16 02/17/16 02/17/16 18:59 06:59 18:59 Intake Total 50 Output Total 0 Balance 50 Weight 79 kg Intake: Intake, IV Titration 50 Amount Piperacillin-Tazobactam 3 50 .375 gm In Dextrose/Water 1 50ml.bag @ 12.5 mls/hr IVPB Q12HR [facility] Rx#: [id number] Output: Stool 0 Other: Voiding Method Urinal # Voids 0 0 # Bowel Movements 0 - Exam GENERAL EXAM: Alert, comfortable in no apparent distress. HEAD: Normocephalic. EYES: Normal reaction of pupils, equal size. NOSE: Clear with pink turbinates. THROAT: No erythema or exudates. NECK: No masses, no significant JVD. CHEST: No chest wall deformity. LUNGS: Equal air entry with basilar crackles more so on the right. CVS: S1 and S2 normal with systolic murmur, regular rhythm. ABDOMEN: No hepatosplenomegaly, normal bowel sounds, no guarding or rigidity. Extremities: There is a left upper extremity shunt with thrill, left below the knee amputation and recent right ostil-csz-qryv amputation. - Labs CBC & Chem 7: 02/15/16 07:27 02/15/16 12:41 Labs: Abnormal Lab Results - Last 24 Hours (Table) 02/16/16 02/17/16 02/17/16 Range/Units 21:11 02:04 06:53 POC Glucose (mg/dL) 106 H 100 H 101 H (75-99) mg/dL Assessment and Plan Plan: Impression: #1 Sepsis with bacteremia including Staphylococcus hominis and Proteus vulgaris secondary to a right lower extremity wound positive for Providencia rettgeri and Alcaligenes species. #2 Severe peripheral vascular disease status post right ixkxt-exm-irnx amputee, postoperative day #2. #3 Acute exacerbation of chronic systolic congestive heart failure with cardiomyopathy and estimated ejection fraction of 35-40% in February 2014. #4 Acute hypoxic respiratory failure secondary to fluid volume overload and possible bilateral infiltrates/pneumonia with development of a left midlung opacity on chest x-ray. #5 Moderate to severe pulmonary hypertension, RVSP 63.5 mmHg. #6 Acute on chronic end-stage renal failure, receiving hemodialysis on Sundays. #7 Diabetes mellitus, type II. #8 Diabetic nephropathy. #9 Chronic anemia secondary to chronic renal disease. #10 Hypertension. Plan: The patient was seen and evaluated by Dr. Courtney. His chest x-rays were reviewed. There is improved aeration bilaterally more so on the right. We'll continue with diuretics in the form of furosemide 40 mg twice a day. He'll remain on antibiotics in form of vancomycin and Zosyn. We'll hold off on a bronchoscopy procedure for now. The patient has no significant pulmonary complaints and is feeling better today as compared to yesterday. We'll continue to follow make further recommendations based on his clinical status.
--- NOTE | 2016-02-17 11:16 | P.PN ---
Subjective Patient is seen in follow-up for end-stage renal disease. He is maintained on hemodialysis on a Sunday schedule. He presented to the hospital with weakness and is noted to have a right heel ulceration. Currently maintained on antibiotics. He underwent right qgsno-zjq-mgec amputation on February 14. Appetite is fair. No vomiting or diarrhea. Denies any chest pain or shortness of breath. Vital signs are stable. General: The patient appeared well nourished and normally developed. HEENT: Head exam is unremarkable. Neck is without jugular venous distension. LUNGS: Lungs are clear to auscultation and percussion. Breath sounds decreased. HEART: Rate and Rhythm are regular. First and second heart sounds normal. No murmurs, rubs or gallops. ABDOMEN: Abdominal exam reveals normal bowel sounds. Non-tender and non- distended. No evidence of peritonitis. EXTREMITITES: No clubbing, cyanosis, or edema. Amputation noted. No obvious drainage from wound dressing. Objective - Vital Signs Vital signs: Vital Signs Temp 98.6 F 02/17/16 07:00 Pulse 76 02/17/16 08:21 Resp 16 02/17/16 07:00 BP 140/73 02/17/16 07:00 Pulse Ox 96 02/17/16 08:11 Intake & Output 02/16/16 02/17/16 02/17/16 18:59 06:59 18:59 Intake Total 50 Output Total 0 Balance 50 Weight 79 kg Intake: Intake, IV Titration 50 Amount Piperacillin-Tazobactam 3 50 .375 gm In Dextrose/Water 1 50ml.bag @ 12.5 mls/hr IVPB Q12HR [facility] Rx#: [id number] Output: Stool 0 Other: Voiding Method Urinal # Voids 0 0 # Bowel Movements 0 - Labs CBC & Chem 7: 02/15/16 07:27 02/15/16 12:41 Labs: Abnormal Lab Results - Last 24 Hours (Table) 02/16/16 02/17/16 02/17/16 Range/Units 21:11 02:04 06:53 POC Glucose (mg/dL) 106 H 100 H 101 H (75-99) mg/dL Assessment and Plan Plan: Assessment: #1. End-stage renal disease maintained on hemodialysis on a Sunday schedule via left upper extremity AV fistula. #2. Hypokalemia. Resolved. #3. Right foot ulcer status post right ceigb-ftp-czcx amputation on February 14. #4. Anemia of chronic kidney disease. #5. Hypertension with chronic kidney disease. Controlled. Plan: Hemodialysis today with goal 3 L ultrafiltration. Nephrocaps daily. Antibiotics per infectious disease recommendations.
[2016-02-17 12:12] LABS: Glucose,Whole Blood 84 mg/dL (75-99)
--- NOTE | 2016-02-17 12:17 | CDI ---
In responding to this query, please exercise your independent professional judgment. The [facility] Coding Staff and Clinical Documentation Specialists appreciate your assistance in clarifying documentation, maintaining compliance with coding guidelines, accurately documenting patients condition and capturing severity of illness. The fact that a question is asked does not imply that any particular answer is desired or expected. Communication forms are a method of clarifying documentation and are not made part of the Legal Health Record. Thank you in advance for your clarification. Last Revision, April 2015 Yemi Lizarraga [address] [place] [address] Documentation Clarification Form Date: 02/17/2016 11:52:00 AM From: Ankita Robin Admit Date: 02/08/2016 8:29:00 PM Patient Name: Foster Palmer I Visit Number: [id number] Discharge Date: Dr. Dilip Kumar Documentation in the Operative Report included: Infected gangrene right foot with peripheral vascular disease. History/Risk factors: PVD, DM type 2, End stage renal disease, Congestive heart failure Pre-Operative Diagnosis: Infected gangrene right foot with peripheral vascular disease Postoperative Diagnosis: Same Clinical Indicators: Qualifiers: The qualifier character for Detachment procedures defines the specific portion of the body that is amputated. Qualifier 1 High: Amputation at the proximal portion of the shaft of the femur Qualifier 2 Mid: Amputation at the middle portion of the shaft of the femur Qualifier 3 Low: Amputation at the distal portion of the shaft of the femur Treatment: Above the knee amputation In order to capture the severity of condition, please specify the following: For the Above the Knee Amputation was it: High Mid Low Please document as an addendum to your operative report in order to capture severity of illness and risk of mortality. FYI: Press F11 to launch patient chart Place X here if this finding has no clinical significance, is not applicable or if you are not able to provide any additional documentation. VIVIANA
--- NOTE | 2016-02-17 16:09 | P.PN ---
Subjective Date of service 02/16/2016 Progress note being dictated for Dr. Dover. Interval history: This a 66-year-old gentleman admitted with sepsis with bacteremia;Staphylococcus hominis in Proteus vulgaris secondary to right lower extremity decubitus ulcer growing providencia rettgeri and Alcaligenes species, status post AKA, acute CHF exacerbation, acute hypoxic respiratory failure and multiple other medical issues in a patient with end-stage kidney disease on hemodialysis. Maintained on vancomycin and Zosyn. Increased shortness of breath this morning, worsened chest x-ray reporting indistinct prominent vasculature, perihilar opacity's, right-sided consolidation,pleural effusion. Evaluated by pulmonary with recommendations noted. Stump Pain controlled. Denies chest pain, palpitations. Objective - Vital Signs Vital signs: Vital Signs Temp 98.2 F 02/16/16 07:00 Pulse 75 02/16/16 07:00 Resp 16 02/16/16 07:00 BP 125/78 02/16/16 07:00 Pulse Ox 98 02/16/16 07:00 Intake & Output 02/15/16 02/16/16 02/16/16 18:59 06:59 18:59 Intake Total 250 Output Total 100 Balance 150 Weight 85 kg 80 kg Intake: IV 250 Output: Estimated Blood Loss 100 Other: # Voids 0 0 - Exam PHYSICAL EXAM: VITAL SIGNS: As above GENERAL: [Sitting up in bed, mild increased respiratory effort] HEENT: [Pupils equal conjunctiva normal.] NECK: [Supple, no JVD] RESPIRATORY EFFORT:[Increased] LUNGS: [Diminished, bibasilar crackles] CARDIOVASCULAR[regular S1 and S2, positive systolic murmur,] GI: [Abdomen soft, nontender, positive bowel sounds.] PSYCH: [Alert and oriented -3, mood and affect normal.] SKIN: Left arm with shunt, Left BKA, right AKA dressing clean dry and intact. NEURO: No focal deficits Microbiology 02/09/16 22:23 Blood Blood Culture - Final No Growth after 144 hours 02/08/16 18:17 Blood Blood Culture - Final 02/08/16 18:17 Heel - Right Gram Stain - Final 02/08/16 18:17 Heel - Right Wound Culture - Final Providencia rettgeri Alcaligenes species 02/08/16 18:17 Blood Blood Culture Gram Stain - Final 02/08/16 18:17 Blood Blood Culture - Final Staph hominis sub sp. hominis Proteus vulgaris - Labs CBC & Chem 7: 02/15/16 07:27 02/15/16 12:41 Labs: Abnormal Lab Results - Last 24 Hours (Table) 02/15/16 02/15/16 02/15/16 Range/Units 12:41 15:11 17:52 PT 12.3 H (9.0-12.0) sec POC Glucose (mg/dL) 72 L 66 L (75-99) mg/dL 02/15/16 02/15/16 02/15/16 Range/Units 17:54 18:14 21:00 PT (9.0-12.0) sec POC Glucose (mg/dL) 66 L 128 H 111 H (75-99) mg/dL 02/16/16 Range/Units 06:52 PT (9.0-12.0) sec POC Glucose (mg/dL) 102 H (75-99) mg/dL Microbiology - Last 24 Hours (Table) 02/09/16 22:23 Blood Culture - Final Blood No Growth after 144 hours Assessment and Plan Plan: 1. [Severe Sepsis with bacteremia;Staphylococcus hominis in Proteus vulgaris secondary to right lower extremity decubitus ulcer growing providencia rettgeri and Alcaligenes species, status post right AKA]. 2. [Diabetes mellitus type 2]. 3. [Acute on chronic congestive heart failure, systolic dysfunction, EF 35-40%]. 4. 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 5. [Hypertension]. 6. [Hypokalemia, resolved]. 7. [Chronic Anemia secondary to CKD]. 8. Severe peripheral vascular disease 9. Acute hypoxic respiratory failure secondary to fluid overload, possible bilateral pneumonia per chest x-ray 10. Moderate to severe pulmonary hypertension Plan: Continue on current medication regime , Lasix, nebulized bronchodilators, antibiotics, monitoring and symptomatic treatment. Antibiotics as per infectious disease Additional Lasix IV push administered related to worsening chest x-ray. Hemodialysis tomorrow as per nephrology. Pulmonary discussing potential bronchoscopy. Prognosis guarded given multiple complex medical issues.
--- NOTE | 2016-02-17 16:20 | P.PN ---
Subjective Date of service 02/17/2016 Progress note being dictated for Dr. Dover. Interval history: This a 66-year-old gentleman admitted with sepsis with bacteremia secondary to right lower extremity decubitus ulcer, status post AKA, acute CHF exacerbation, acute hypoxic respiratory failure and multiple other medical issues in a patient with end-stage kidney disease on hemodialysis. Scheduled for hemodialysis this morning. Continues on vancomycin and Zosyn. Feeling better today.Yesterday presented with increased shortness of breath , worsened chest x-ray, received additional Lasix IV push 1. Today's chest x- ray reporting reporting overall stable findings compared to yesterday, right greater than left lower lung infiltrate and/or edema with fairly moderate central vascular congestion favoring CHF. Maintained on oral Lasix, denies increase in shortness of breath. Denies chest pain, palpitations. Pain controlled Objective - Vital Signs Vital signs: Vital Signs Temp 98.6 F 02/17/16 07:00 Pulse 76 02/17/16 08:21 Resp 16 02/17/16 07:00 BP 140/73 02/17/16 07:00 Pulse Ox 96 02/17/16 08:11 Intake & Output 02/16/16 02/17/16 02/17/16 18:59 06:59 18:59 Intake Total 50 Output Total 0 Balance 50 Weight 79 kg Intake: Intake, IV Titration 50 Amount Piperacillin-Tazobactam 3 50 .375 gm In Dextrose/Water 1 50ml.bag @ 12.5 mls/hr IVPB Q12HR [facility] Rx#: [id number] Output: Stool 0 Other: Voiding Method Urinal # Voids 0 0 0 # Bowel Movements 0 - Exam PHYSICAL EXAM: VITAL SIGNS: As above GENERAL: [Sitting up in bed, mild increased respiratory effort] HEENT: [Pupils equal conjunctiva normal.] NECK: [Supple, no JVD] RESPIRATORY EFFORT:[Increased] LUNGS: [Diminished, bibasilar crackles, greater on the right] CARDIOVASCULAR[regular S1 and S2, positive systolic murmur,] GI: [Abdomen soft, nontender, positive bowel sounds.] PSYCH: [Alert and oriented -3, mood and affect normal.] SKIN: Left arm with shunt, Left BKA, right AKA dressing clean dry and intact. NEURO: No focal deficits Microbiology 02/09/16 22:23 Blood Blood Culture - Final No Growth after 144 hours 02/08/16 18:17 Blood Blood Culture - Final 02/08/16 18:17 Heel - Right Gram Stain - Final 02/08/16 18:17 Heel - Right Wound Culture - Final Providencia rettgeri Alcaligenes species 02/08/16 18:17 Blood Blood Culture Gram Stain - Final 02/08/16 18:17 Blood Blood Culture - Final Staph hominis sub sp. hominis Proteus vulgaris - Labs CBC & Chem 7: 02/15/16 07:27 02/15/16 12:41 Labs: Abnormal Lab Results - Last 24 Hours (Table) 02/16/16 02/17/16 02/17/16 Range/Units 21:11 02:04 06:53 POC Glucose (mg/dL) 106 H 100 H 101 H (75-99) mg/dL Assessment and Plan Plan: 1. [Severe Sepsis with bacteremia;Staphylococcus hominis in Proteus vulgaris secondary to right lower extremity decubitus ulcer growing providencia rettgeri and Alcaligenes species, status post right AKA]. 2. [Diabetes mellitus type 2]. 3. [Acute on chronic congestive heart failure, systolic dysfunction, EF 35-40%]. 4. 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 5. [Hypertension]. 6. [Hypokalemia, resolved]. 7. [Chronic Anemia secondary to CKD]. 8. Severe peripheral vascular disease 9. Acute hypoxic respiratory failure secondary to fluid overload, possible bilateral pneumonia per chest x-ray 10. Moderate to severe pulmonary hypertension Plan: Continue on current medication regime , Lasix, nebulized bronchodilators, vancomycin, Zosyn, monitoring and symptomatic treatment. Antibiotics as per infectious disease Additional Lasix IV push administered related to worsening chest x-ray. Hemodialysis tomorrow as per nephrology. Prognosis guarded given multiple complex medical issues. The impression and plan of care has been dictated as directed. : I performed a H&P examination of this patient and discussed the same with the dictator. I agree with the dictator's note. Any additional findings/opinions/ etc. will be noted.
[2016-02-17 17:40] LABS: Glucose,Whole Blood 87 mg/dL (75-99)
[2016-02-17 21:19] LABS: Glucose,Whole Blood 115 mg/dL (75-99)
[2016-02-17] MEDS: LISINOPRIL 5 MG TAB PO SCH (22:17)
[2016-02-17] MEDS: METOPROLOL TARTRATE 25 MG TAB PO SCH (22:17)
[2016-02-18] MEDS: HYDROmorphone 1 MG/ML 1 ML SYRINGE IVP PRN ×3 (00:22→20:20)
[2016-02-18] MEDS: IPRATROPIUM-ALBUTEROL 3 ML NEB INHALATION SCH ×3 (06:55→20:08)
[2016-02-18] MEDS: PARoxetine 10 MG TAB PO SCH (08:15)
[2016-02-18] MEDS: FOLIC ACID-VIT B COMPLEX-VIT C 1 CAP PO SCH (08:15)
[2016-02-18] MEDS: INSULIN LISPRO (humaLOG) 300 UNIT/3 ML VIAL SQ SCH ×4 (08:16→21:23)
[2016-02-18] MEDS: PIPERACILLIN-TAZOBACTAM 3.375 GM in DEXTROSE/WATER 1 50ML.BAG IVPB SCH ×2 (08:16→20:15)
[2016-02-18] MEDS: FUROSEMIDE 40 MG TAB PO SCH ×2 (08:16→16:40)
[2016-02-18 08:25] LABS: Glucose,Whole Blood 98 mg/dL (75-99)
[2016-02-18 08:45] LABS: Basophils % (A) 0 %; CHCM 31.7; Eosinophils # (A) 0.1 k/uL (0-0.7); Eosinophils % (A) 1 %; HCT 33.1 % (39.0-53.0); HGB 10.5 gm/dL (13.0-17.5); Luc # (Auto) 0.17; Luc % (Auto) 2; Lymphocytes # (A) 0.6 k/uL (1.0-4.8); Lymphocytes % (A) 6 %; MCH 30.2 pg (25.0-35.0); MCHC 31.7 g/dL (31.0-37.0); MCV 95.2 fL (80.0-100.0); Mean Platelet Volume 7.4; Monocytes # (A) 0.7 k/uL (0-1.0); Monocytes % (A) 7 %; Neutrophils # (A) 8.6 k/uL (1.3-7.7); Neutrophils % (A) 84 %; RBC 3.47 m/uL (4.30-5.90); RDW 13.9 % (11.5-15.5); WBC 10.3 k/uL (3.8-10.6); WBC (Perox) 10.82
[2016-02-18 09:00] LABS: Calcium 9.5 mg/dL (8.4-10.2); Potassium 4.4 mmol/L (3.5-5.1)
--- NOTE | 2016-02-18 12:25 | P.PN ---
Subjective This is a pleasant 65-year-old gentleman who follows with Dr. Leyva as his primary care physician. 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 He denies any previous history of lung disease and is a lifelong nonsmoker. He had presented here back on 02/16/2016 after having significant weakness and shortness of breath following a dialysis treatment. His initial chest x-ray revealed evidence of pulmonary edema and he was initiated on Lasix. He had been receiving his dialysis as scheduled. He was also found to have a significant ulcer on his right lower extremity with dry eschar and foul-smelling odor that cultured positive for Providencia rettgeri and Alcaligenes species and was recommended right [id number]-[id number]-kvgg amputation by Dr. Kumar. This was performed 12/16/2015. His blood cultures were positive for Staphylococcus hominis and Proteus vulgaris. We were consulted 02/16/2016 for worsening chest x-ray with right-sided consolidation and pleural effusions with cardiomegaly and diffuse interstitial pattern bilaterally. The patient is seen again today 02/18/2016 in follow-up. He is resting fairly comfortably in bed. He is awake and alert in no acute distress. He denies any worsening shortness of breath, cough or congestion. He is maintaining good O2 saturations in the upper 90s on room air. Currently afebrile. He has been maintained on vancomycin and Zosyn. Chest x-ray remains stable. There remains a right greater than left lower lung infiltrate/edema and moderate central vascular congestion with cardiomegaly favoring congestive heart failure. He did receive hemodialysis again yesterday. He remains on Lasix 40 mg twice a day. Objective - Vital Signs Vital signs: Vital Signs Temp 97.3 F L 02/18/16 07:00 Pulse 68 02/18/16 07:06 Resp 16 02/18/16 07:00 BP 131/71 02/18/16 07:00 Pulse Ox 97 02/18/16 07:00 Intake & Output 02/17/16 02/18/16 02/18/16 18:59 06:59 18:59 Intake Total 750 200 Balance 750 200 Weight 77.5 kg Intake: Oral 750 200 Other: Voiding Method Urinal Urinal # Voids 0 0 - Exam GENERAL EXAM: Alert, comfortable in no apparent distress. HEAD: Normocephalic. EYES: Normal reaction of pupils, equal size. NOSE: Clear with pink turbinates. THROAT: No erythema or exudates. NECK: No masses, no significant JVD. CHEST: No chest wall deformity. LUNGS: Equal air entry with basilar crackles more so on the right. CVS: S1 and S2 normal with systolic murmur, regular rhythm. ABDOMEN: No hepatosplenomegaly, normal bowel sounds, no guarding or rigidity. Extremities: There is a left upper extremity shunt with thrill, left below the knee amputation and recent right [id number]-[id number] amputation. - Labs CBC & Chem 7: 02/18/16 07:51 02/18/16 07:51 Labs: Abnormal Lab Results - Last 24 Hours (Table) 02/17/16 02/18/16 02/18/16 Range/Units 20:59 07:51 07:51 RBC 3.47 L (4.30-5.90) m/uL Hgb 10.5 L (13.0-17.5) gm/dL Hct 33.1 L (39.0-53.0) % Neutrophils # 8.6 H (1.3-7.7) k/uL Lymphocytes # 0.6 L (1.0-4.8) k/uL Chloride 96 L (98-107) mmol/L BUN 25 H (9-20) mg/dL Creatinine 4.70 H (0.66-1.25) mg/dL POC Glucose (mg/dL) 115 H (75-99) mg/dL Assessment and Plan Plan: Impression: #1 Sepsis with bacteremia including Staphylococcus hominis and Proteus vulgaris secondary to a right lower extremity wound positive for Providencia rettgeri and Alcaligenes species. #2 Severe peripheral vascular disease status post right [id number]-frlk amputee, postoperative day #3. #3 Acute exacerbation of chronic systolic congestive heart failure with cardiomyopathy and estimated ejection fraction of 35-40% in February 2014. #4 Acute hypoxic respiratory failure secondary to fluid volume overload and possible bilateral infiltrates/pneumonia with development of a left midlung opacity on chest x-ray. #5 Moderate to severe pulmonary hypertension, RVSP 63.5 mmHg. #6 Acute on chronic end-stage renal failure, receiving hemodialysis on Sunday's. #7 Diabetes mellitus, type II. #8 Diabetic nephropathy. #9 Chronic anemia secondary to chronic renal disease. #10 Hypertension. Plan: The patient was seen and evaluated by Dr. Courtney. We'll continue with diuretics in the form of furosemide 40 mg twice a day. He'll remain on antibiotics in form of vancomycin and Zosyn. We'll hold off on a bronchoscopy procedure for now. The patient has no significant pulmonary complaints and is feeling better. We'll continue to follow and make further recommendations based on his clinical status.
[2016-02-18 12:29] LABS: Glucose,Whole Blood 177 mg/dL (75-99)
--- NOTE | 2016-02-18 16:41 | PN ---
Patient is seen for followup for end-stage renal disease. He is status post right above-knee amputation on February 14. He is maintained on hemodialysis on a Sunday, , Sunday schedule via left arm AV fistula. On examination, patient is comfortable, awake, alert, oriented x3, not in any acute distress. Blood pressure is 126/67, heart rate 78 per minute. He is afebrile. EXAMINATION OF THE HEART: S1 and S2. EXAMINATION OF LUNGS: Bilateral breath sounds are heard. Decreased breath sounds in bases. ABDOMEN: Soft, nontender. Examination of the lower extremities shows right AKA stump currently dressed; left BKA from before. Labs show potassium 4.4, hemoglobin 10.5 g/dL. ASSESSMENT: 1. End-stage renal disease, on hemodialysis on a Sunday, , Sunday schedule. Will schedule for hemodialysis in a.m. 2. Status post right above-knee amputation, currently stable. 3. Type 2 diabetes. 4. Peripheral vascular disease. 5. Fluid overload. Will increase UF with hemodialysis in a.m. 6. Sepsis with bacteremia with Staphylococcus hominis. Wound cultures had grown providencia and alcaligenes species. PLAN: Hemodialysis in a.m. Continue to encourage increased oral intake.
[2016-02-18 17:47] LABS: Glucose,Whole Blood 137 mg/dL (75-99)
[2016-02-18] MEDS: METOPROLOL TARTRATE 25 MG TAB PO SCH (20:14)
[2016-02-18] MEDS: LISINOPRIL 5 MG TAB PO SCH (20:14)
[2016-02-18 20:55] LABS: Glucose,Whole Blood 184 mg/dL (75-99)
--- NOTE | 2016-02-18 22:46 | PN ---
DATE OF SERVICE: 02/18/2016 This 66-year-old gentleman who was admitted with severe sepsis and bacteremia also had Staph hominis and Proteus vulgaris and other organisms grown from the culture. The patient is being closely monitored at this time. The patient is on multiple antibiotics. I have seen and evaluated the patient with the nurse practitioner. Please refer to the nurse practitioner's notes and impressions documented as scribe for further information. Will continue with hemodialysis and continue to monitor. PT, OT evaluation and further recommendations to follow.
[2016-02-19] MEDS: IPRATROPIUM-ALBUTEROL 3 ML NEB INHALATION SCH ×3 (07:25→19:41)
[2016-02-19 07:45] LABS: Glucose,Whole Blood 143 mg/dL (75-99)
--- NOTE | 2016-02-19 08:03 | P.PN ---
Progress Note - Text 66-year-old white male, history of chronic renal failure, history of peripheral vascular disease patient had a right above-knee amputation patient is having dialysis 3 times a week dressing is dry and intact and stump site is healing good patient is waiting for jail if patient goes home with follow-up in the office for removal of stitches
[2016-02-19] MEDS: INSULIN LISPRO (humaLOG) 300 UNIT/3 ML VIAL SQ SCH ×4 (08:15→21:15)
[2016-02-19] MEDS: FUROSEMIDE 40 MG TAB PO SCH ×2 (08:32→16:03)
[2016-02-19] MEDS: FOLIC ACID-VIT B COMPLEX-VIT C 1 CAP PO SCH (08:32)
[2016-02-19] MEDS: PARoxetine 10 MG TAB PO SCH (08:34)
[2016-02-19] MEDS: PIPERACILLIN-TAZOBACTAM 3.375 GM in DEXTROSE/WATER 1 50ML.BAG IVPB SCH (08:35)
[2016-02-19 08:43] LABS: Basophils % (A) 0 %; CH 29.9; CHCM 30.9; Eosinophils # (A) 0.1 k/uL (0-0.7); Eosinophils % (A) 1 %; HCT 31.9 % (39.0-53.0); HDW 2.16; Hypochromasia Slight; Luc # (Auto) 0.16; Luc % (Auto) 2; Lymphocytes # (A) 0.6 k/uL (1.0-4.8); Lymphocytes % (A) 6 %; MCH 30.6 pg (25.0-35.0); MCHC 31.5 g/dL (31.0-37.0); MCV 97.3 fL (80.0-100.0); Mean Platelet Volume 7.2; Monocytes # (A) 0.6 k/uL (0-1.0); Monocytes % (A) 6 %; Neutrophils # (A) 9.2 k/uL (1.3-7.7); Neutrophils % (A) 86 %; RBC 3.28 m/uL (4.30-5.90); RDW 14.4 % (11.5-15.5); WBC 10.7 k/uL (3.8-10.6); WBC (Perox) 11.28
[2016-02-19 09:08] LABS: Calcium 9.2 mg/dL (8.4-10.2); Potassium 4.4 mmol/L (3.5-5.1)
[2016-02-19] MEDS: HYDROmorphone 1 MG/ML 1 ML SYRINGE IVP PRN ×3 (11:33→20:26)
[2016-02-19] MEDS ORDERED: GELATIN SPONGE,ABSORB (SMALL) 1 EACH SPONGE ONE (12:00)
[2016-02-19 12:29] LABS: Glucose,Whole Blood 154 mg/dL (75-99)
--- NOTE | 2016-02-19 13:50 | P.PN ---
Subjective Date of service 02/18/2016 Progress note being dictated for Dr. Dykes. Interval history: This a 66-year-old gentleman admitted with severe sepsis, bacteremia, secondary to right lower extremity decubitus ulcer, status post AKA , acute CHF exacerbation, acute hypoxic respiratory failure and multiple other medical issues in a patient with end-stage kidney disease on hemodialysis. Continues on vancomycin and Zosyn as current cultures reporting staph hominis, Proteus vulgaris and other organisms. Received hemodialysis yesterday. Feeling better today.Maintained on oral Lasix, denies increase in shortness of breath. Denies chest pain, palpitations. Objective - Vital Signs Vital signs: Vital Signs Temp 97.0 F L 02/18/16 14:58 Pulse 78 02/18/16 14:58 Resp 20 02/18/16 14:58 BP 126/67 02/18/16 14:58 Pulse Ox 99 02/18/16 14:58 Intake & Output 02/17/16 02/18/16 02/18/16 18:59 06:59 18:59 Intake Total 750 400 Balance 750 400 Weight 77.5 kg Intake: Oral 750 400 Other: Voiding Method Urinal Urinal # Voids 0 0 0 - Exam PHYSICAL EXAM: VITAL SIGNS: As above GENERAL: [Sitting up in bed, no acute distress HEENT: [Pupils equal conjunctiva normal.] NECK: [Supple, no JVD] RESPIRATORY EFFORT:[Mildly Increased] LUNGS: [Diminished, bibasilar crackles, greater on the righ, no wheezing ] CARDIOVASCULAR[regular S1 and S2, positive systolic murmur,] GI: [Abdomen soft, nontender, positive bowel sounds.] PSYCH: [Alert and oriented -3, mood and affect normal.] SKIN: Left arm with shunt, Left BKA, right AKA dressing clean dry and intact. NEURO: No focal deficits Microbiology 02/09/16 22:23 Blood Blood Culture - Final No Growth after 144 hours 02/08/16 18:17 Blood Blood Culture - Final 02/08/16 18:17 Heel - Right Gram Stain - Final 02/08/16 18:17 Heel - Right Wound Culture - Final Providencia rettgeri Alcaligenes species 02/08/16 18:17 Blood Blood Culture Gram Stain - Final 02/08/16 18:17 Blood Blood Culture - Final Staph hominis sub sp. hominis Proteus vulgaris - Labs CBC & Chem 7: 02/19/16 07:39 02/19/16 07:39 Labs: Abnormal Lab Results - Last 24 Hours (Table) 02/17/16 02/18/16 02/18/16 Range/Units 20:59 07:51 07:51 RBC 3.47 L (4.30-5.90) m/uL Hgb 10.5 L (13.0-17.5) gm/dL Hct 33.1 L (39.0-53.0) % Neutrophils # 8.6 H (1.3-7.7) k/uL Lymphocytes # 0.6 L (1.0-4.8) k/uL Chloride 96 L (98-107) mmol/L BUN 25 H (9-20) mg/dL Creatinine 4.70 H (0.66-1.25) mg/dL POC Glucose (mg/dL) 115 H (75-99) mg/dL 02/18/16 02/18/16 Range/Units 12:19 17:44 RBC (4.30-5.90) m/uL Hgb (13.0-17.5) gm/dL Hct (39.0-53.0) % Neutrophils # (1.3-7.7) k/uL Lymphocytes # (1.0-4.8) k/uL Chloride (98-107) mmol/L BUN (9-20) mg/dL Creatinine (0.66-1.25) mg/dL POC Glucose (mg/dL) 177 H 137 H (75-99) mg/dL Assessment and Plan Plan: 1. [Severe Sepsis with bacteremia;Staphylococcus hominis in Proteus vulgaris secondary to right lower extremity decubitus ulcer growing providencia rettgeri and Alcaligenes species, status post right AKA]. 2. [Diabetes mellitus type 2]. 3. [Acute on chronic congestive heart failure, systolic dysfunction, EF 35-40%]. 4. 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 5. [Hypertension]. 6. [Hypokalemia, resolved]. 7. [Chronic Anemia secondary to CKD]. 8. Severe peripheral vascular disease 9. Acute hypoxic respiratory failure secondary to fluid overload, possible bilateral pneumonia per chest x-ray 10. Moderate to severe pulmonary hypertension Plan: Continue on current medication regime , Lasix, nebulized bronchodilators, vancomycin, Zosyn, monitoring and symptomatic treatment. Strict I&O's, CHF pathway. Hemodialysis tomorrow. PT/OT .further recommendations to follow. Prognosis guarded given multiple complex medical issues. The impression and plan of care has been dictated as directed. : I performed a H&P examination of this patient and discussed the same with the dictator. I agree with the dictator's note. Any additional findings/opinions/ etc. will be noted.
--- NOTE | 2016-02-19 14:24 | P.PN ---
Subjective Principal diagnosis: This is a pleasant 65-year-old gentleman who follows with Dr. Leyva as his primary care physician. 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 He denies any previous history of lung disease and is a lifelong nonsmoker. He had presented here back on 02/16/2016 after having significant weakness and shortness of breath following a dialysis treatment. His initial chest x-ray revealed evidence of pulmonary edema and he was initiated on Lasix. He had been receiving his dialysis as scheduled. He was also found to have a significant ulcer on his right lower extremity with dry eschar and foul-smelling odor that cultured positive for Providencia rettgeri and Alcaligenes species and was recommended right gruki-der-vrqf amputation by Dr. Kumar. This was performed 12/16/2015. His blood cultures were positive for Staphylococcus hominis and Proteus vulgaris. We were consulted 02/16/2016 for worsening chest x-ray with right-sided consolidation and pleural effusions with cardiomegaly and diffuse interstitial pattern bilaterally. The patient is seen again today 02/18/2016 in follow-up. He is resting fairly comfortably in bed. He is awake and alert in no acute distress. He denies any worsening shortness of breath, cough or congestion. He is maintaining good O2 saturations in the upper 90s on room air. Currently afebrile. He has been maintained on vancomycin and Zosyn. Chest x-ray remains stable. There remains a right greater than left lower lung infiltrate/edema and moderate central vascular congestion with cardiomegaly favoring congestive heart failure. He did receive hemodialysis again yesterday. He remains on Lasix 40 mg twice a day. Patient was seen again on , he is about the same, asymptomatic, remains on the same course of antibiotics which is for his cellulitis, sepsis, as well as his pneumonia. Patient is hemodynamically stable, and in no distress. Objective - Vital Signs Vital signs: Vital Signs Temp 97.5 F L 02/19/16 07:00 Pulse 80 02/19/16 07:34 Resp 20 02/19/16 07:00 BP 146/72 02/19/16 07:00 Pulse Ox 98 02/18/16 23:00 Intake & Output 02/18/16 02/19/16 02/19/16 18:59 06:59 18:59 Intake Total 400 200 Output Total 50 Balance 400 150 Weight 78.5 kg Intake: Oral 400 200 Output: Urine 50 Other: Voiding Method Urinal Urinal # Voids 0 1 # Bowel Movements 0 - Exam GENERAL EXAM: Alert, comfortable in no apparent distress. HEAD: Normocephalic. EYES: Normal reaction of pupils, equal size. NOSE: Clear with pink turbinates. THROAT: No erythema or exudates. NECK: No masses, no significant JVD. CHEST: No chest wall deformity. LUNGS: Equal air entry with basilar crackles more so on the right. CVS: S1 and S2 normal with systolic murmur, regular rhythm. ABDOMEN: No hepatosplenomegaly, normal bowel sounds, no guarding or rigidity. Extremities: There is a left upper extremity shunt with thrill, left below the knee amputation and recent right [id number] amputation. - Labs CBC & Chem 7: 02/19/16 07:39 02/19/16 07:39 Labs: Abnormal Lab Results - Last 24 Hours (Table) 02/18/16 02/18/16 02/19/16 Range/Units 17:44 20:36 07:29 WBC (3.8-10.6) k/uL RBC (4.30-5.90) m/uL Hgb (13.0-17.5) gm/dL Hct (39.0-53.0) % Neutrophils # (1.3-7.7) k/uL Lymphocytes # (1.0-4.8) k/uL Chloride (98-107) mmol/L BUN (9-20) mg/dL Creatinine (0.66-1.25) mg/dL Glucose (74-99) mg/dL POC Glucose (mg/dL) 137 H 184 H 143 H (75-99) mg/dL 02/19/16 02/19/16 02/19/16 Range/Units 07:39 07:39 12:07 WBC 10.7 H (3.8-10.6) k/uL RBC 3.28 L (4.30-5.90) m/uL Hgb 10.0 L (13.0-17.5) gm/dL Hct 31.9 L (39.0-53.0) % Neutrophils # 9.2 H (1.3-7.7) k/uL Lymphocytes # 0.6 L (1.0-4.8) k/uL Chloride 96 L (98-107) mmol/L BUN 36 H (9-20) mg/dL Creatinine 5.78 H* (0.66-1.25) mg/dL Glucose 136 H (74-99) mg/dL POC Glucose (mg/dL) 154 H (75-99) mg/dL Assessment and Plan Plan: 1 Sepsis with bacteremia including Staphylococcus hominis and Proteus vulgaris secondary to a right lower extremity wound positive for Providencia rettgeri and Alcaligenes species. #2 Severe peripheral vascular disease status post right prkwu-mrv-voof amputee, postoperative day # 4 #3 Acute exacerbation of chronic systolic congestive heart failure with cardiomyopathy and estimated ejection fraction of 35-40% in February 2014. #4 Acute hypoxic respiratory failure secondary to fluid volume overload and possible bilateral infiltrates/pneumonia , most likely hospital-acquired. Patient seems to be on proper antibiotics as per infectious disease on the case. #5 Moderate to severe pulmonary hypertension, RVSP 63.5 mmHg. #6 Acute on chronic end-stage renal failure, receiving hemodialysis on Sunday's. #7 Diabetes mellitus, type II. #8 Diabetic nephropathy. #9 Chronic anemia secondary to chronic renal disease. #10 Hypertension. Recommendation: Continue present treatment plan, not much to be added from my perspective, we'll continue to follow Time with Patient: Less than 30
--- NOTE | 2016-02-19 16:42 | P.PN ---
Subjective Date of service 02/19/2016 Progress note being dictated for Dr. Dykes. Interval history: This a 66-year-old gentleman admitted with severe sepsis, bacteremia, secondary to right lower extremity decubitus ulcer, status post AKA , acute CHF exacerbation, acute hypoxic respiratory failure and multiple other medical issues in a patient with end-stage kidney disease on hemodialysis. Maintained on antibiotics as per infectious disease. Hemodialysis today. Continues on oral Lasix, denies increase in shortness of breath. Denies chest pain, palpitations. Pain controlled. Afebrile. Denies chest pain, or palpitations. Objective - Vital Signs Vital signs: Vital Signs Temp 97.1 F L 02/19/16 15:00 Pulse 71 02/19/16 15:00 Resp 20 02/19/16 15:00 BP 131/67 02/19/16 15:00 Pulse Ox 98 02/19/16 15:00 Intake & Output 02/18/16 02/19/16 02/19/16 18:59 06:59 18:59 Intake Total 400 200 50 Output Total 50 0 Balance 400 150 50 Weight 78.5 kg Intake: Intake, IV Titration 50 Amount Piperacillin-Tazobactam 3 50 .375 gm In Dextrose/Water 1 50ml.bag @ 12.5 mls/hr IVPB Q12HR [facility]AN Rx#: [id number] Oral 400 200 Output: Urine 50 Stool 0 Other: Voiding Method Urinal Urinal Urinal # Voids 0 1 200 # Bowel Movements 0 - Exam PHYSICAL EXAM: VITAL SIGNS: As above GENERAL: [Sitting up in bed, no acute distress HEENT: [Pupils equal conjunctiva normal.] NECK: [Supple, no JVD] RESPIRATORY EFFORT:[Normal] LUNGS: [Diminished, bibasilar crackles, greater on the right, no wheezing ] CARDIOVASCULAR[regular S1 and S2, positive systolic murmur,] GI: [Abdomen soft, nontender, positive bowel sounds.] PSYCH: [Alert and oriented -3, mood and affect normal.] SKIN: Left arm with shunt, Left BKA, right AKA dressing clean dry and intact. NEURO: No focal deficits Microbiology 02/09/16 22:23 Blood Blood Culture - Final No Growth after 144 hours 02/08/16 18:17 Blood Blood Culture - Final 02/08/16 18:17 Heel - Right Gram Stain - Final 02/08/16 18:17 Heel - Right Wound Culture - Final Providencia rettgeri Alcaligenes species 02/08/16 18:17 Blood Blood Culture Gram Stain - Final 02/08/16 18:17 Blood Blood Culture - Final Staph hominis sub sp. hominis Proteus vulgaris - Labs CBC & Chem 7: 02/19/16 07:39 02/19/16 07:39 Labs: Abnormal Lab Results - Last 24 Hours (Table) 02/18/16 02/18/16 02/19/16 Range/Units 17:44 20:36 07:29 WBC (3.8-10.6) k/uL RBC (4.30-5.90) m/uL Hgb (13.0-17.5) gm/dL Hct (39.0-53.0) % Neutrophils # (1.3-7.7) k/uL Lymphocytes # (1.0-4.8) k/uL Chloride (98-107) mmol/L BUN (9-20) mg/dL Creatinine (0.66-1.25) mg/dL Glucose (74-99) mg/dL POC Glucose (mg/dL) 137 H 184 H 143 H (75-99) mg/dL 02/19/16 02/19/16 02/19/16 Range/Units 07:39 07:39 12:07 WBC 10.7 H (3.8-10.6) k/uL RBC 3.28 L (4.30-5.90) m/uL Hgb 10.0 L (13.0-17.5) gm/dL Hct 31.9 L (39.0-53.0) % Neutrophils # 9.2 H (1.3-7.7) k/uL Lymphocytes # 0.6 L (1.0-4.8) k/uL Chloride 96 L (98-107) mmol/L BUN 36 H (9-20) mg/dL Creatinine 5.78 H* (0.66-1.25) mg/dL Glucose 136 H (74-99) mg/dL POC Glucose (mg/dL) 154 H (75-99) mg/dL Assessment and Plan Plan: 1. [Severe Sepsis with bacteremia;Staphylococcus hominis in Proteus vulgaris secondary to right lower extremity decubitus ulcer growing providencia rettgeri and Alcaligenes species, status post right AKA]. 2. [Diabetes mellitus type 2]. 3. [Acute on chronic congestive heart failure, systolic dysfunction, EF 35-40%]. 4. 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 5. [Hypertension]. 6. [Hypokalemia, resolved]. 7. [Chronic Anemia secondary to CKD]. 8. Severe peripheral vascular disease 9. Acute hypoxic respiratory failure secondary to fluid overload, possible bilateral pneumonia per chest x-ray 10. Moderate to severe pulmonary hypertension Plan: Continue on current medication regime , Lasix, nebulized bronchodilators, vancomycin, Zosyn, monitoring and symptomatic treatment. Strict I&O's, CHF pathway. Hemodialysis today as per nephrology. PT/OT .further recommendations to follow. Prognosis guarded given multiple complex medical issues. Discharge planning in progress for ECF rehab. The impression and plan of care has been dictated as directed. : I performed a H&P examination of this patient and discussed the same with the dictator. I agree with the dictator's note. Any additional findings/opinions/ etc. will be noted.
[2016-02-19 16:54] LABS: Glucose,Whole Blood 134 mg/dL (75-99)
[2016-02-19] MEDS: LISINOPRIL 5 MG TAB PO SCH (19:53)
[2016-02-19] MEDS: METOPROLOL TARTRATE 25 MG TAB PO SCH (19:53)
[2016-02-19] MEDS ORDERED: VANCOMYCIN 1,500 MG in SODIUM CHLORIDE 0.9% 250 ML IVPB ONE (20:00)
[2016-02-19 20:56] LABS: Glucose,Whole Blood 145 mg/dL (75-99)
--- NOTE | 2016-02-19 22:37 | PN ---
DATE OF SERVICE: 02/19/2016 This 66 -year-old gentleman was admitted with severe sepsis, also had Staph grown from the culture. Seen and evaluated the patient along with nurse practitioner. Please refer to the nurse practitioner notes and impression documented as a scribe for further information. The patient is receiving hemodialysis at this time. PT/OT to evaluate the patient for possible ECF rehab. Guarded prognosis. Further recommendations to follow. MTDD
[2016-02-20] MEDS: PIPERACILLIN-TAZOBACTAM 3.375 GM in DEXTROSE/WATER 1 50ML.BAG IVPB SCH ×3 (00:07→20:31)
[2016-02-20 07:27] LABS: Glucose,Whole Blood 145 mg/dL (75-99)
[2016-02-20] MEDS: HYDROmorphone 1 MG/ML 1 ML SYRINGE IVP PRN ×3 (08:13→17:41)
[2016-02-20] MEDS: FUROSEMIDE 40 MG TAB PO SCH ×2 (08:15→15:51)
[2016-02-20] MEDS: FOLIC ACID-VIT B COMPLEX-VIT C 1 CAP PO SCH (08:15)
[2016-02-20] MEDS: PARoxetine 10 MG TAB PO SCH (08:15)
[2016-02-20] MEDS: INSULIN LISPRO (humaLOG) 300 UNIT/3 ML VIAL SQ SCH ×4 (08:18→21:21)
[2016-02-20 08:34] LABS: Basophils % (A) 0 %; CH 30.2; CHCM 31.7; Eosinophils # (A) 0.2 k/uL (0-0.7); Eosinophils % (A) 2 %; HCT 32.5 % (39.0-53.0); HDW 2.26; HGB 10.3 gm/dL (13.0-17.5); Luc # (Auto) 0.14; Luc % (Auto) 1; Lymphocytes # (A) 0.6 k/uL (1.0-4.8); Lymphocytes % (A) 5 %; MCH 30.5 pg (25.0-35.0); MCHC 31.8 g/dL (31.0-37.0); MCV 95.9 fL (80.0-100.0); Mean Platelet Volume 7.6; Monocytes # (A) 0.6 k/uL (0-1.0); Monocytes % (A) 6 %; Neutrophils # (A) 8.8 k/uL (1.3-7.7); Neutrophils % (A) 86 %; RBC 3.39 m/uL (4.30-5.90); RDW 15.1 % (11.5-15.5); WBC 10.3 k/uL (3.8-10.6); WBC (Perox) 10.66
[2016-02-20 08:41] LABS: Calcium 9.4 mg/dL (8.4-10.2); Potassium 4.3 mmol/L (3.5-5.1)
[2016-02-20] MEDS: IPRATROPIUM-ALBUTEROL 3 ML NEB INHALATION SCH ×3 (09:36→19:42)
--- NOTE | 2016-02-20 11:19 | P.PN ---
Progress Note - Text 66-year-old white male history history of renal failure, history of peripheral screw disease, post left BK [place] the past patient recently had a right above -knee amputation for infected transmetatarsal right foot dressing is dry stump site is healing good patient is having dialysis if patient goes home we will follow up in the office for removal of stitches
[2016-02-20 12:17] LABS: Glucose,Whole Blood 126 mg/dL (75-99)
--- NOTE | 2016-02-20 14:37 | P.PN ---
Subjective Principal diagnosis: This is a pleasant 65-year-old gentleman who follows with Dr. Leyva as his primary care physician. 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 He denies any previous history of lung disease and is a lifelong nonsmoker. He had presented here back on 02/16/2016 after having significant weakness and shortness of breath following a dialysis treatment. His initial chest x-ray revealed evidence of pulmonary edema and he was initiated on Lasix. He had been receiving his dialysis as scheduled. He was also found to have a significant ulcer on his right lower extremity with dry eschar and foul-smelling odor that cultured positive for Providencia rettgeri and Alcaligenes species and was recommended right [id number] amputation by Dr. Kumar. This was performed 12/16/2015. His blood cultures were positive for Staphylococcus hominis and Proteus vulgaris. We were consulted 02/16/2016 for worsening chest x-ray with right-sided consolidation and pleural effusions with cardiomegaly and diffuse interstitial pattern bilaterally. The patient is seen again today 02/18/2016 in follow-up. He is resting fairly comfortably in bed. He is awake and alert in no acute distress. He denies any worsening shortness of breath, cough or congestion. He is maintaining good O2 saturations in the upper 90s on room air. Currently afebrile. He has been maintained on vancomycin and Zosyn. Chest x-ray remains stable. There remains a right greater than left lower lung infiltrate/edema and moderate central vascular congestion with cardiomegaly favoring congestive heart failure. He did receive hemodialysis again yesterday. He remains on Lasix 40 mg twice a day. Patient was seen again on 02/19/2016, he is about the same, asymptomatic, remains on the same course of antibiotics which is for his cellulitis, sepsis, as well as his pneumonia. Patient is hemodynamically stable, and in no distress. Reevaluated today on 02/20/2016, patient is overall about the same. He is resting in bed, does not seem to be in any form of distress whatsoever. He is not a great historian. Seems to be generally weak and debilitated. His labs were reviewed he had a relatively normal CBC normal electrolytes however his BUN is 29 creatinine is 4.60. Objective - Vital Signs Vital signs: Vital Signs Temp 97.0 F L 02/20/16 14:22 Pulse 65 02/20/16 14:22 Resp 20 02/20/16 14:22 BP 125/70 02/20/16 14:22 Pulse Ox 100 02/20/16 14:22 Intake & Output 02/19/16 02/20/16 02/20/16 18:59 06:59 18:59 Intake Total 50 600 Output Total 0 100 Balance 50 500 Weight 75 kg Intake: Intake, IV Titration 50 Amount Piperacillin-Tazobactam 3 50 .375 gm In Dextrose/Water 1 50ml.bag @ 12.5 mls/hr IVPB Q12HR [facility] Rx#: [id number] Oral 600 Output: Urine 100 Stool 0 Other: Voiding Method Urinal Urinal Urinal # Voids 200 0 0 # Bowel Movements 0 - Exam GENERAL EXAM: Alert, comfortable in no apparent distress. HEAD: Normocephalic. EYES: Normal reaction of pupils, equal size. NOSE: Clear with pink turbinates. THROAT: No erythema or exudates. NECK: No masses, no significant JVD. CHEST: No chest wall deformity. LUNGS: Equal air entry with basilar crackles more so on the right. CVS: S1 and S2 normal with systolic murmur, regular rhythm. ABDOMEN: No hepatosplenomegaly, normal bowel sounds, no guarding or rigidity. Extremities: There is a left upper extremity shunt with thrill, left below the knee amputation and recent right [id number] amputation. - Labs CBC & Chem 7: 02/20/16 07:48 02/20/16 07:48 Labs: Abnormal Lab Results - Last 24 Hours (Table) 02/19/16 02/19/16 02/20/16 Range/Units 16:48 20:31 07:14 RBC (4.30-5.90) m/uL Hgb (13.0-17.5) gm/dL Hct (39.0-53.0) % Neutrophils # (1.3-7.7) k/uL Lymphocytes # (1.0-4.8) k/uL Sodium (137-145) mmol/L Chloride (98-107) mmol/L BUN (9-20) mg/dL Creatinine (0.66-1.25) mg/dL Glucose (74-99) mg/dL POC Glucose (mg/dL) 134 H 145 H 145 H (75-99) mg/dL 02/20/16 02/20/16 02/20/16 Range/Units 07:48 07:48 12:01 RBC 3.39 L (4.30-5.90) m/uL Hgb 10.3 L (13.0-17.5) gm/dL Hct 32.5 L (39.0-53.0) % Neutrophils # 8.8 H (1.3-7.7) k/uL Lymphocytes # 0.6 L (1.0-4.8) k/uL Sodium 135 L (137-145) mmol/L Chloride 95 L (98-107) mmol/L BUN 29 H (9-20) mg/dL Creatinine 4.60 H (0.66-1.25) mg/dL Glucose 120 H (74-99) mg/dL POC Glucose (mg/dL) 126 H (75-99) mg/dL Assessment and Plan Plan: 1 Sepsis with bacteremia including Staphylococcus hominis and Proteus vulgaris secondary to a right lower extremity wound positive for Providencia rettgeri and Alcaligenes species. #2 Severe peripheral vascular disease status post right glhic-qea-tuhf amputee, postoperative day # 5 #3 Acute exacerbation of chronic systolic congestive heart failure with cardiomyopathy and estimated ejection fraction of 35-40% in February 2014. #4 Acute hypoxic respiratory failure secondary to fluid volume overload and possible bilateral infiltrates/pneumonia , most likely hospital-acquired. Patient seems to be on proper antibiotics as per infectious disease on the case. #5 Moderate to severe pulmonary hypertension, RVSP 63.5 mmHg. #6 Acute on chronic end-stage renal failure, receiving hemodialysis on Sunday's. #7 Diabetes mellitus, type II. #8 Diabetic nephropathy. #9 Chronic anemia secondary to chronic renal disease. #10 Hypertension. Recommendation: Continue present treatment plan, not much to be added from my perspective, we'll continue to follow Time with Patient: Less than 30
--- NOTE | 2016-02-20 14:39 | PN ---
Patient is seen for follow-up for end-stage renal disease. He is status post right a.k.a., currently doing fairly well. He is maintained on a Sunday, , Sunday schedule for dialysis. We had about close to 3 liters of ultrafiltration yesterday. On examination, blood pressure is 148/83, heart rate 71 per minute. He is afebrile. Examination shows patient is fairly euvolemic. He has right a.k.a. and left BKA from before. ASSESSMENT: 1. End-stage renal disease on hemodialysis on a Sunday, , Sunday schedule via left arm AV fistula. 2. Severe peripheral vascular disease status post recent right above knee amputation on this admission and previous below knee amputation on the left side. 3. Hypertension, controlled. 4. Anemia of chronic disease. 5. Chronic kidney disease bone mineral disorder. PLAN: The patient is stable for discharge to rehab from nephrology standpoint.
[2016-02-20 17:20] LABS: Glucose,Whole Blood 154 mg/dL (75-99)
[2016-02-20] MEDS: METOPROLOL TARTRATE 25 MG TAB PO SCH (20:31)
[2016-02-20] MEDS: LISINOPRIL 5 MG TAB PO SCH (20:31)
[2016-02-20 22:16] LABS: Glucose,Whole Blood 108 mg/dL (75-99)
[2016-02-21] MEDS: HYDROcodone/APAP 5-325MG 1 EACH TAB PO PRN (03:08)
[2016-02-21] MEDS: IPRATROPIUM-ALBUTEROL 3 ML NEB INHALATION SCH ×3 (07:14→20:39)
[2016-02-21 07:39] LABS: Glucose,Whole Blood 96 mg/dL (75-99)
[2016-02-21] MEDS: INSULIN LISPRO (humaLOG) 300 UNIT/3 ML VIAL SQ SCH ×4 (07:39→21:08)
[2016-02-21] MEDS: PARoxetine 10 MG TAB PO SCH (08:11)
[2016-02-21] MEDS: FOLIC ACID-VIT B COMPLEX-VIT C 1 CAP PO SCH (08:11)
[2016-02-21] MEDS: PIPERACILLIN-TAZOBACTAM 3.375 GM in DEXTROSE/WATER 1 50ML.BAG IVPB SCH ×2 (08:12→20:14)
[2016-02-21] MEDS: FUROSEMIDE 40 MG TAB PO SCH ×2 (08:12→16:25)
[2016-02-21] MEDS: HYDROmorphone 1 MG/ML 1 ML SYRINGE IVP PRN (08:38)
[2016-02-21 12:00] LABS: Glucose,Whole Blood 136 mg/dL (75-99)
--- NOTE | 2016-02-21 13:46 | XR ---
EXAMINATION TYPE: XR chest 1V portable DATE OF EXAM: 02/21/2016 1:38 PM COMPARISON: 02/17/2016 HISTORY: Follow-up pneumonia TECHNIQUE: Single frontal view of the chest is obtained. FINDINGS: Elevated right hemidiaphragm with right-sided pleural effusion and consolidation. The hear t is markedly enlarged. No pneumothorax. Atherosclerotic change aorta. Underlying COPD suspected. IMPRESSION: 1. Stable airspace disease and pleural effusion greater on the right. Correlate for CHF.
--- NOTE | 2016-02-21 14:50 | PN ---
DATE OF SERVICE: 02/20/2016 This 66-year-old gentleman who was admitted after severe sepsis and bacteremia also had right a.k.a. No chest pain. No palpitations. No fever. The patient is receiving hemodialysis. On exam, alert and oriented times two. Blood pressure 140/72. Respiratory rate 17, temperature 97 degrees, pulse ox 100% on 2 L. HEENT: Conjunctivae normal. NECK: No jugular venous distention. CARDIOVASCULAR: S1, S2 muffled. RESPIRATORY: Breath sounds diminished at the bases. A few scattered rhonchi and crackles. ABDOMEN: soft, nontender. No mass palpable. LEGS: No edema. No swelling. CENTRAL NERVOUS SYSTEM: No focal deficits. LABS: WBC 10.3, hemoglobin 10.3, sodium 135, creatinine is 4.60. ASSESSMENT: 1. Severe sepsis and bacteremia, Staph and Proteus vulgaris secondary to right lower extremity and calcingenosis species, status post right above knee amputation. 2. Diabetes mellitus type 2. 3. Acute and chronic congestive heart failure systolic dysfunction, ejection fraction 35 to 40%. 4. Change in mental status, acute on chronic metabolic encephalopathy, multifactorial. 5. End-stage renal disease secondary to diabetic nephropathy on hemodialysis. 6. Chronic kidney disease, stage V. 7. Hypertension. 8. Hyperkalemia, resolved. 9. Chronic anemia, secondary to severe chronic kidney disease. 11. Peripheral vascular disease. 12. Acute hypoxic respiratory failure secondary to fluid overload, possible bilateral pneumonia per chest x-ray. 13. Moderate severe pulmonary hypertension. 14. FULL CODE. In this 66-year-old gentleman who presented with multiple complex medical issues, we will monitor the patient closely. Continue the current medications, continue symptomatic treatment. Otherwise, at this time I recommend to continue with antibiotics. Closely monitor. Closely follow with vascular surgery and nephrology. Guarded prognosis because of multiple complex medical issues. Further recommendations to follow. MTDD
--- NOTE | 2016-02-21 15:43 | P.PN ---
Subjective Principal diagnosis: This is a pleasant 65-year-old gentleman who follows with Dr. Leyva as his primary care physician. 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 He denies any previous history of lung disease and is a lifelong nonsmoker. He had presented here back on 02/16/2016 after having significant weakness and shortness of breath following a dialysis treatment. His initial chest x-ray revealed evidence of pulmonary edema and he was initiated on Lasix. He had been receiving his dialysis as scheduled. He was also found to have a significant ulcer on his right lower extremity with dry eschar and foul-smelling odor that cultured positive for Providencia rettgeri and Alcaligenes species and was recommended right xdpwr-[id number]-rzbh amputation by Dr. Kumar. This was performed 12/16/2015. His blood cultures were positive for Staphylococcus hominis and Proteus vulgaris. We were consulted 02/16/2016 for worsening chest x-ray with right-sided consolidation and pleural effusions with cardiomegaly and diffuse interstitial pattern bilaterally. The patient is seen again today 02/18/2016 in follow-up. He is resting fairly comfortably in bed. He is awake and alert in no acute distress. He denies any worsening shortness of breath, cough or congestion. He is maintaining good O2 saturations in the upper 90s on room air. Currently afebrile. He has been maintained on vancomycin and Zosyn. Chest x-ray remains stable. There remains a right greater than left lower lung infiltrate/edema and moderate central vascular congestion with cardiomegaly favoring congestive heart failure. He did receive hemodialysis again yesterday. He remains on Lasix 40 mg twice a day. Patient was seen again on 02/19/2016, he is about the same, asymptomatic, remains on the same course of antibiotics which is for his cellulitis, sepsis, as well as his pneumonia. Patient is hemodynamically stable, and in no distress. Reevaluated today on 02/20/2016, patient is overall about the same. He is resting in bed, does not seem to be in any form of distress whatsoever. He is not a great historian. Seems to be generally weak and debilitated. His labs were reviewed he had a relatively normal CBC normal electrolytes however his BUN is 29 creatinine is 4.60. Patient was reevaluated on 02/21/2016, doing relatively well, feeling much better overall, no cough no wheezing no shortness of breath. Objective - Vital Signs Vital signs: Vital Signs Temp 98.2 F 02/21/16 07:00 Pulse 72 02/21/16 12:57 Resp 16 02/21/16 07:00 BP 128/71 02/21/16 07:00 Pulse Ox 100 02/21/16 07:00 Intake & Output 02/20/16 02/21/16 02/21/16 18:59 06:59 18:59 Intake Total 120 Output Total 50 Balance -50 120 Weight 75 kg Intake: Oral 120 Output: Emesis 50 Other: Voiding Method Urinal Urinal Urinal # Voids 0 0 # Bowel Movements 1 # Emeses 2 - Exam GENERAL EXAM: Alert, comfortable in no apparent distress. HEAD: Normocephalic. EYES: Normal reaction of pupils, equal size. NOSE: Clear with pink turbinates. THROAT: No erythema or exudates. NECK: No masses, no significant JVD. CHEST: No chest wall deformity. LUNGS: Equal air entry with basilar crackles more so on the right. CVS: S1 and S2 normal with systolic murmur, regular rhythm. ABDOMEN: No hepatosplenomegaly, normal bowel sounds, no guarding or rigidity. Extremities: There is a left upper extremity shunt with thrill, left below the knee amputation and recent right jyrro-cvh-blug amputation. - Labs CBC & Chem 7: 02/20/16 07:48 02/20/16 07:48 Labs: Abnormal Lab Results - Last 24 Hours (Table) 02/20/16 02/20/16 02/21/16 Range/Units 17:07 21:00 11:58 POC Glucose (mg/dL) 154 H 108 H 136 H (75-99) mg/dL Assessment and Plan Plan: 1 Sepsis with bacteremia including Staphylococcus hominis and Proteus vulgaris secondary to a right lower extremity wound positive for Providencia rettgeri and Alcaligenes species. #2 Severe peripheral vascular disease status post right moxrz-tnu-podh amputee, postoperative day # 6 #3 Acute exacerbation of chronic systolic congestive heart failure with cardiomyopathy and estimated ejection fraction of 35-40% in February 2014. #4 Acute hypoxic respiratory failure secondary to fluid volume overload and possible bilateral infiltrates/pneumonia , most likely hospital-acquired. Patient seems to be on proper antibiotics as per infectious disease on the case. #5 Moderate to severe pulmonary hypertension, RVSP 63.5 mmHg. #6 Acute on chronic end-stage renal failure, receiving hemodialysis on Sunday's. #7 Diabetes mellitus, type II. #8 Diabetic nephropathy. #9 Chronic anemia secondary to chronic renal disease. #10 Hypertension. Recommendation: Continue present treatment plan, not much to be added from my perspective, we'll continue to follow follow-up chest x-ray in a.m. Time with Patient: Less than 30
[2016-02-21 16:58] LABS: Glucose,Whole Blood 134 mg/dL (75-99)
[2016-02-21] MEDS ORDERED: HYDROcodone/APAP 5-325MG 1 EACH TAB PO PRN (17:28)
[2016-02-21] MEDS ORDERED: ALPRAZolam 0.25 MG TAB PO PRN (17:29)
--- NOTE | 2016-02-21 17:42 | P.PN ---
Subjective Date of service 02/21/16 Progress note being dictated for Dr. Dykes. Interval history: This a 66-year-old gentleman admitted with severe sepsis, bacteremia, secondary to right lower extremity decubitus ulcer, status post AKA , acute CHF exacerbation, acute hypoxic respiratory failure and multiple other medical issues in a patient with end-stage kidney disease on hemodialysis. Antibiotics continue as per infectious disease. Continues on oral Lasix, breathing improved. Denies cough Denies chest pain, palpitations. Pain controlled. Afebrile. Objective - Vital Signs Vital signs: Vital Signs Temp 98.2 F 02/21/16 07:00 Pulse 76 02/21/16 07:30 Resp 16 02/21/16 07:00 BP 128/71 02/21/16 07:00 Pulse Ox 100 02/21/16 07:00 Intake & Output 02/20/16 02/21/16 02/21/16 18:59 06:59 18:59 Intake Total 120 Output Total 50 Balance -50 120 Weight 75 kg Intake: Oral 120 Output: Emesis 50 Other: Voiding Method Urinal Urinal Urinal # Voids 0 0 # Bowel Movements 1 # Emeses 2 - Exam PHYSICAL EXAM: VITAL SIGNS: As above GENERAL: [Sitting up in bed, no acute distress HEENT: [Pupils equal conjunctiva normal.] NECK: [Supple, no JVD] RESPIRATORY EFFORT:[Normal] LUNGS: Improved air entry, Bibasilar crackles, greater on the right, no wheezing ] CARDIOVASCULAR[regular S1 and S2, positive systolic murmur,] GI: [Abdomen soft, nontender, positive bowel sounds.] PSYCH: [Alert and oriented -3, mood and affect normal.] SKIN: Left arm with shunt, Left BKA, right AKA dressing clean dry and intact. NEURO: No focal deficits Microbiology 02/09/16 22:23 Blood Blood Culture - Final No Growth after 144 hours 02/08/16 18:17 Blood Blood Culture - Final 02/08/16 18:17 Heel - Right Gram Stain - Final 02/08/16 18:17 Heel - Right Wound Culture - Final Providencia rettgeri Alcaligenes species 02/08/16 18:17 Blood Blood Culture Gram Stain - Final 02/08/16 18:17 Blood Blood Culture - Final Staph hominis sub sp. hominis Proteus vulgaris - Labs CBC & Chem 7: 02/20/16 07:48 02/20/16 07:48 Labs: Abnormal Lab Results - Last 24 Hours (Table) 02/20/16 02/20/16 02/20/16 Range/Units 12:01 17:07 21:00 POC Glucose (mg/dL) 126 H 154 H 108 H (75-99) mg/dL 02/21/16 Range/Units 11:58 POC Glucose (mg/dL) 136 H (75-99) mg/dL Assessment and Plan Plan: 1. [Severe Sepsis with bacteremia;Staphylococcus hominis in Proteus vulgaris secondary to right lower extremity decubitus ulcer growing providencia rettgeri and Alcaligenes species, status post right AKA]. 2. [Diabetes mellitus type 2]. 3. [Acute on chronic congestive heart failure, systolic dysfunction, EF 35-40%]. 4. 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 5. [Hypertension]. 6. [Hypokalemia, resolved]. 7. [Chronic Anemia secondary to chronic kidney disease]. 8. Severe peripheral vascular disease 9. Acute hypoxic respiratory failure secondary to fluid overload, possible bilateral pneumonia per chest x-ray 10. Moderate to severe pulmonary hypertension Plan: Continue on current medication regime , Lasix, nebulized bronchodilators, vancomycin, Zosyn, monitoring and symptomatic treatment. Strict I&O's, CHF pathway. Tomorrow ,Hemodialysis as per nephrology. PT/OT .further recommendations to follow. Discharge planning in progress for ECF rehab. tomorrow. The impression and plan of care has been dictated as directed. : I performed a H&P examination of this patient and discussed the same with the dictator. I agree with the dictator's note. Any additional findings/opinions/ etc. will be noted.
[2016-02-21] MEDS: HYDROcodone/APAP 7.5-325MG 1 EACH TAB PO PRN (18:08)
--- NOTE | 2016-02-21 19:51 | PN ---
Patient is seen for follow-up for end-stage renal disease. He is currently lying in bed having sponge bath. The patient denies any significant complaints. His dressing was just changed. No major issues per nursing staff. Awaiting discharge to rehab. On examination, blood pressure is 150/75, heart rate 86 per minute. He is afebrile. Examination reveals soft abdomen with no major tenderness noted. The patient's right AKA stump is currently dressed. The dressing was just changed. No major issues per nursing staff. He also has an left BKA. [employer] exam is grossly intact. Labs show potassium 4.3 from yesterday. ASSESSMENT: 1. End-stage renal disease on hemodialysis on a Sunday, , Sunday schedule via left arm AV fistula scheduled for hemodialysis in a.m. 2. Status post right above-knee amputation for possible discharge tomorrow. 3. Chronic kidney disease mineral bone disorder. 4. Generalized debility. PLAN: Hemodialysis in a.m., and patient can be discharged post dialysis.
[2016-02-21] MEDS: METOPROLOL TARTRATE 25 MG TAB PO SCH (20:14)
[2016-02-21] MEDS: LISINOPRIL 5 MG TAB PO SCH (20:14)
[2016-02-21 21:01] LABS: Glucose,Whole Blood 126 mg/dL (75-99)
[2016-02-22] MEDS: HYDROcodone/APAP 7.5-325MG 1 EACH TAB PO PRN ×3 (04:01→22:52)
[2016-02-22 06:57] LABS: Glucose,Whole Blood 128 mg/dL (75-99)
[2016-02-22] MEDS: INSULIN LISPRO (humaLOG) 300 UNIT/3 ML VIAL SQ SCH ×4 (07:32→21:29)
[2016-02-22] MEDS: FUROSEMIDE 40 MG TAB PO SCH ×2 (08:23→16:06)
[2016-02-22] MEDS: FOLIC ACID-VIT B COMPLEX-VIT C 1 CAP PO SCH ×2 (08:23→08:26)
[2016-02-22] MEDS: PIPERACILLIN-TAZOBACTAM 3.375 GM in DEXTROSE/WATER 1 50ML.BAG IVPB SCH ×2 (08:23→21:30)
[2016-02-22] MEDS: PARoxetine 10 MG TAB PO SCH (08:24)
--- NOTE | 2016-02-22 09:51 | PN ---
DATE OF SERVICE: 02/21/2016 This 66-year-old gentleman who was admitted with significant sepsis and bacteremia also had above knee amputation. Seen and evaluated the patient along with nurse practitioner. Please refer to the nurse practitioner notes and impression documented as a scribe for further information. Possible ECF rehab. Further recommendations to follow.
[2016-02-22] MEDS: IPRATROPIUM-ALBUTEROL 3 ML NEB INHALATION SCH ×3 (11:29→19:20)
[2016-02-22 11:37] LABS: Glucose,Whole Blood 138 mg/dL (75-99)
--- NOTE | 2016-02-22 14:06 | DS ---
DATE OF ADMISSION: 02/08/2016 DATE OF DISCHARGE: 02/13/2016 DATE OF SERVICE: 02/22/2016 FINAL DIAGNOSES: 1. Acute severe sepsis with bacteremia, staph hominis and protein Providencia rettgeri secondary to right lower extremity diabetic ulcer growing Providencia rettgeri and Alcaligenes species present on admission, status post right above-knee amputation. 2. Diabetes mellitus type 2. 3. Acute on chronic congestive heart failure acute exacerbation with ejection fraction 35% to 40%. 4. Endstage renal disease secondary to diabetic nephropathy on hemodialysis, stage V chronic disease. 5. Hypertension. 6. Hyperkalemia, resolved. 7. Chronic anemia secondary to chronic kidney disease. 8. History of peripheral vascular disease. 9. Acute hypoxic respiratory failure secondary to fluid overload with possible bilateral pneumonia and gram-negative per chest x-ray, improving. 10. Moderate severe pulmonary hypertension. 11. Gait dysfunction. 12. FULL CODE. DISCHARGE DISPOSITION: Patient will be discharged in a stable condition with guarded prognosis. Total time taken 35 minutes. Patient will be transferred [facility]. HISTORY OF PRESENT ILLNESS: This 66-year-old gentleman with a past medical history of multiple medical problems as mentioned earlier was admitted with significant sepsis infection, leg infection. Patient underwent AKA. Patient also had multiple other medical problems as mentioned earlier. Patient has been antibiotics and bronchodilators. Patient seen by Nephrology, Dr. Courtney and as well as Dr. Kumar. Care was coordinated. The patient improved significantly. On exam, vitals are stable. CARDIOVASCULAR SYSTEM: S1, S2. ABDOMEN: Soft. NERVOUS SYSTEM: No focal deficits. The discharge diet is cardiac. Activity limited until followup. Follow up with Dr. Leyva in 1 week. Follow up with Dr. Kumar and follow up with Cardiology. Follow up with Dr. Eduardo or Dr. Singer in [facility]. The medications are: 1. Xanax 0.5 p.o. q.8 p.r.n. 2. TUMS 1000 mg p.o. t.i.d. 3. Vitamin B complex 1 p.o. daily. 4. Lasix 40 mg p.o. b.i.d. 5. Hydrocodone 7.5 q.6 p.r.n. 6. Humalog scale. 7. Accu-Cheks a.c. and at bedtime. Scale is 150 to 200 = 2 units; 201 to 250 = 4 units, 251 to 300 = 6 units; 301 to 350 = 8 units, 351 to 400 = 10 units, more than 400 call. 8. Albuterol, Atrovent updrafts q.i.d. and p.r.n. 9. Lisinopril 5 mg p.o. daily. 10. Lopressor 25 mg p.o. daily. 11. Paxil 10 mg p.o. daily. Once again, the patient will be discharged in a stable condition with guarded prognosis.
--- NOTE | 2016-02-22 15:21 | P.PN ---
Subjective This is a pleasant 65-year-old gentleman who follows with Dr. Leyva as his primary care physician. 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 He denies any previous history of lung disease and is a lifelong nonsmoker. He had presented here back on 02/16/2016 after having significant weakness and shortness of breath following a dialysis treatment. His initial chest x-ray revealed evidence of pulmonary edema and he was initiated on Lasix. He had been receiving his dialysis as scheduled. He was also found to have a significant ulcer on his right lower extremity with dry eschar and foul-smelling odor that cultured positive for Providencia rettgeri and Alcaligenes species and was recommended right [id number]-[id number] amputation by Dr. Kumar. This was performed 12/16/2015. His blood cultures were positive for Staphylococcus hominis and Proteus vulgaris. We were consulted 02/16/2016 for worsening chest x-ray with right-sided consolidation and pleural effusions with cardiomegaly and diffuse interstitial pattern bilaterally. The patient is seen again today 02/22/2016 in follow-up. He is currently sitting up in the chair at the bedside. He is awake and alert in no acute distress. He denies any worsening shortness of breath, cough or congestion. He is maintaining good O2 saturations in the upper 90s on room air. Currently afebrile. He has been maintained on vancomycin and Zosyn. Chest x-ray remains stable. There remains a right greater than left lower lung infiltrate/edema and moderate central vascular congestion with cardiomegaly favoring congestive heart failure. He did receive hemodialysis again today. He remains on Lasix 40 mg twice a day. Objective - Vital Signs Vital signs: Vital Signs Temp 97.0 F L 02/22/16 07:00 Pulse 80 02/22/16 11:37 Resp 17 02/22/16 08:00 BP 144/73 02/22/16 07:00 Pulse Ox 100 02/22/16 07:00 Intake & Output 02/21/16 02/22/16 02/22/16 18:59 06:59 18:59 Intake Total 120 120 Output Total 201 150 90 Balance -81 -150 30 Weight 75 kg Intake: Oral 120 120 Output: Urine 200 150 90 Stool 0 Urine/Stool Mix 1 Other: Voiding Method Urinal Urinal Urinal # Voids 0 - Exam GENERAL EXAM: Alert, comfortable in no apparent distress. HEAD: Normocephalic. EYES: Normal reaction of pupils, equal size. NOSE: Clear with pink turbinates. THROAT: No erythema or exudates. NECK: No masses, no significant JVD. CHEST: No chest wall deformity. LUNGS: Equal air entry with basilar crackles more so on the right. CVS: S1 and S2 normal with systolic murmur, regular rhythm. ABDOMEN: No hepatosplenomegaly, normal bowel sounds, no guarding or rigidity. Extremities: There is a left upper extremity shunt with thrill, left below the knee amputation and recent right [id number]-zfu-junr amputation. - Labs CBC & Chem 7: 02/20/16 07:48 02/20/16 07:48 Labs: Abnormal Lab Results - Last 24 Hours (Table) 02/21/16 02/21/16 02/22/16 Range/Units 16:56 20:59 06:55 POC Glucose (mg/dL) 134 H 126 H 128 H (75-99) mg/dL 02/22/16 Range/Units 11:35 POC Glucose (mg/dL) 138 H (75-99) mg/dL Assessment and Plan Plan: Impression: #1 Sepsis with bacteremia including Staphylococcus hominis and Proteus vulgaris secondary to a right lower extremity wound positive for Providencia rettgeri and Alcaligenes species. #2 Severe peripheral vascular disease status post right [id number] amputee. #3 Acute exacerbation of chronic systolic congestive heart failure with cardiomyopathy and estimated ejection fraction of 35-40% in February 2014. #4 Acute hypoxic respiratory failure secondary to fluid volume overload and possible bilateral infiltrates/pneumonia with development of a left midlung opacity on chest x-ray. #5 Moderate to severe pulmonary hypertension, RVSP 63.5 mmHg. #6 Acute on chronic end-stage renal failure, receiving hemodialysis on Sundays. #7 Diabetes mellitus, type II. #8 Diabetic nephropathy. #9 Chronic anemia secondary to chronic renal disease. #10 Hypertension. Plan: The patient was seen and evaluated by Dr. García. His most recent chest x-ray and labs were reviewed. The patient is stable from the pulmonary standpoint. We'll increase his activity as tolerated. We'll continue to follow make further recommendations based on his clinical status.
[2016-02-22 16:25] LABS: Glucose,Whole Blood 125 mg/dL (75-99)
[2016-02-22 17:01] LABS: Glucose,Whole Blood 84 mg/dL (75-99)
[2016-02-22 21:13] LABS: Glucose,Whole Blood 93 mg/dL (75-99)
--- NOTE | 2016-02-22 22:23 | P.PN ---
Subjective 65-year-old male who has a complex medical history including end- stage renal disease with diabetes mellitus type 2 and severe peripheral vascular disease. 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 He's been followed in the outpatient setting in the wound healing center with podiatry and vascular surgery. He now has a marked worsening to the right foot at the heel. There is been a dry gangrenous area that is now much worse, it is malodorous, with swelling and extension of the erythema and fluctuance around the eschar. The patient is ill. Did not tolerate dialysis well. Developed fever, chills and rigors. Also some hypotension and was brought into hospital. Because of the significant infection to the right foot the infectious diseases consultation was requested the patient is now status post a right wbumk-rll-borr amputation. [place] of some pain and not feeling well overall. Sitting up in a chair and feels better. They being upright he's been belching quite well and feels better. Objective - Vital Signs Vital signs: Vital Signs Temp 98.3 F 02/22/16 15:00 Pulse 82 02/22/16 16:00 Resp 18 02/22/16 16:00 BP 143/75 02/22/16 15:00 Pulse Ox 97 02/22/16 15:00 Intake & Output 02/22/16 02/22/16 02/23/16 06:59 18:59 06:59 Intake Total 120 Output Total 150 90 Balance -150 30 Weight 75 kg Intake: Oral 120 Output: Urine 150 90 Stool 0 Other: Voiding Method Urinal Urinal # Voids 0 - Exam 65-year-old male of thin build who seems to be uncomfortable. Has had recent chill and fever. HEENT: Anicteric conjunctiva are pink and moist nasal mucosa grossly intact without significant lesions, there is no thrush. Full denture Neck: The neck is supple without significant lymphadenopathy or thyromegaly. Lungs: Symmetric air entry without expiratory wheezes no vicky bronchial sounds dialysis catheter right anterior chest wall noted Heart: Irregular with an audible S1 and S2 no S3 soft S4 no murmur click or rub Abdomen: Positive bowel sounds soft and nontender without palpable masses or organomegaly. There was no guarding or rebound. Extremities: Upper extremities since of the fistula left arm that isn't functioning well. Right arm without abnormalities. Left lower extremities shows evidence of the below the knee amputation with residual limb intact. The right lower extremities shows evidence of the recent [id number] amputation. The suture line is intact. No erythema, instructions her drainage is noted. Just some tenderness. Neuro: Awake and sitting up in the chair. Much more interactive. Does have a bit of withdrawn personality now with his new amputation. - Labs CBC & Chem 7: 02/20/16 07:48 02/20/16 07:48 Labs: Abnormal Lab Results - Last 24 Hours (Table) 02/18/16 02/22/16 02/22/16 Range/Units 17:11 06:55 11:35 POC Glucose (mg/dL) 125 H 128 H 138 H (75-99) mg/dL Laboratory Results WBC 10.3 k/uL (3.8-10.6) 02/20/16 07:48 RBC 3.39 m/uL (4.30-5.90) L 02/20/16 07:48 Hgb 10.3 gm/dL (13.0-17.5) L 02/20/16 07:48 Hct 32.5 % (39.0-53.0) L 02/20/16 07:48 MCV 95.9 fL (80.0-100.0) 02/20/16 07:48 MCH 30.5 pg (25.0-35.0) 02/20/16 07:48 MCHC 31.8 g/dL (31.0-37.0) 02/20/16 07:48 RDW 15.1 % (11.5-15.5) 02/20/16 07:48 Plt Count 283 k/uL (150-450) 02/20/16 07:48 Neutrophils % 86 % 02/20/16 07:48 Lymphocytes % 5 % 02/20/16 07:48 Monocytes % 6 % 02/20/16 07:48 Eosinophils % 2 % 02/20/16 07:48 Basophils % 0 % 02/20/16 07:48 Neutrophils # 8.8 k/uL (1.3-7.7) H 02/20/16 07:48 Lymphocytes # 0.6 k/uL (1.0-4.8) L 02/20/16 07:48 Monocytes # 0.6 k/uL (0-1.0) 02/20/16 07:48 Eosinophils # 0.2 k/uL (0-0.7) 02/20/16 07:48 Basophils # 0.0 k/uL (0-0.2) 02/20/16 07:48 Hypochromasia Slight 02/19/16 07:39 PT 12.3 sec (9.0-12.0) H 02/15/16 12:41 INR 1.2 (<1.1) 02/15/16 12:41 APTT 27.2 sec (22.0-30.0) 02/08/16 18:17 Sodium 135 mmol/L (137-145) L 02/20/16 07:48 Potassium 4.3 mmol/L (3.5-5.1) 02/20/16 07:48 Chloride 95 mmol/L (98-107) L 02/20/16 07:48 Carbon Dioxide 25 mmol/L (22-30) 02/20/16 07:48 Anion Gap 15 mmol/L 02/20/16 07:48 BUN 29 mg/dL (9-20) H 02/20/16 07:48 Creatinine 4.60 mg/dL (0.66-1.25) H 02/20/16 07:48 Est GFR (MDRD) Af Amer 16 (>60 ml/min/1.73 sqM) 02/20/16 07:48 Est GFR (MDRD) Non-Af 13 (>60 ml/min/1.73 sqM) 02/20/16 07:48 Glucose 120 mg/dL (74-99) H 02/20/16 07:48 POC Glucose (mg/dL) 93 mg/dL (75-99) 02/22/16 21:12 POC Glu Sheriff Bryanna Rosen 02/22/16 21:[address] Glu mg/dL 117 mg/dL 02/09/16 07:13 Hemoglobin A1c 5.7 % (4.2-6.1) 02/09/16 07:13 Plasma Lactic Acid [place] 1.2 mmol/L (0.7-2.0) 02/09/16 01:06 Calcium 9.4 mg/dL (8.4-10.2) 02/20/16 07:48 Phosphorus 4.1 mg/dL (2.5-4.5) 02/10/16 08:17 Magnesium 1.9 mg/dL (1.6-2.3) 02/08/16 18:17 Total Bilirubin 1.2 mg/dL (0.2-1.3) 02/08/16 18:17 AST 22 U/L (17-59) 02/08/16 18:17 ALT 24 U/L (21-72) 02/08/16 18:17 Alkaline Phosphatase 139 U/L (38-126) H 02/08/16 18:17 Total Creatine Kinase 44 U/L (55-170) L 02/08/16 18:17 CK-MB (CK-2) 1.3 ng/mL (0.0-2.4) 02/08/16 18:17 CK-MB (CK-2) Rel Index 3.0 02/08/16 18:17 Troponin I 0.076 ng/mL (0.000-0.034) H* 02/09/16 17:40 Total Protein 6.6 g/dL (6.3-8.2) 02/08/16 18:17 Albumin 3.2 g/dL (3.5-5.0) L 02/08/16 18:17 Random Vancomycin 31.1 ug/mL 02/21/16 08:13 Hep Bs Antigen Negative 02/10/16 08:17 Hep Bs Antibody Negative (Negative) 02/10/16 08:17 Hep B Core IgM Ab NEGATIVE 02/10/16 08:17 Blood Type A Positive 02/14/16 07:55 Blood Type Recheck No 02/14/16 07:55 Antibody Screen NEGATIVE 02/14/16 07:55 Crossmatch See Detail 02/14/16 07:55 Spec Expiration Date 02/17/2016 - 2705 02/14/16 07:55 Microbiology 02/09/16 22:23 Blood Blood Culture - Final No Growth after 144 hours 02/08/16 18:17 Blood Blood Culture - Final 02/08/16 18:17 Heel - Right Gram Stain - Final 02/08/16 18:17 Heel - Right Wound Culture - Final Providencia rettgeri Alcaligenes species 02/08/16 18:17 Blood Blood Culture Gram Stain - Final 02/08/16 18:17 Blood Blood Culture - Final Staph hominis sub sp. hominis Proteus vulgaris Assessment and Plan (1) Atherosclerosis of [place] arteries of right leg with ulceration of heel and midfoot Narrative/Plan: 65-year-old male presents to Hospital because of significant difficulties with his right foot at the heel with increasing difficulties from the eschar and no evidence of worsening infection. Given following the wound healing center because been quite some time since he's been there. She's had difficulty with transportation. He would became somewhat ill at dialysis yesterday and is now much more ill. Is evidence of sepsis with the infection from the right foot. There is evidence of bacteremia as well as evidence of gram-negative bacilli from the wound. Vancomycin is being dosed by the pharmacy services. Unasyn was started but will be changed piperacillin tazobactam given the fact that gram-negative bacilli has been seen no be concerned to pseudomonas or other more resistant gram-negative organisms given his history especially dialysis. Continue ongoing local wound care to the site at this time till be a nonstick dressing and bulky dressing to absorb any drainage and to pad the area. We'll also observe odor. Vascular surgery consult occurred with Dr. Dee. He is referred to case to his current vascular surgery Dr. Kumar. Given that the leg is now been amputated will not need long-term intravenous antibiotic therapy. We'll plan current IV therapy for 1 further day. Status: Acute (2) Chronic renal failure Status: Acute (3) Type 2 diabetes mellitus with foot ulcer and gangrene Status: Acute
[2016-02-22 22:45] VITALS: RESP 16
[2016-02-22] MEDS: METOPROLOL TARTRATE 25 MG TAB PO SCH (22:51)
[2016-02-22] MEDS: LISINOPRIL 5 MG TAB PO SCH (22:52)
[2016-02-23 06:58] LABS: Glucose,Whole Blood 92 mg/dL (75-99)
[2016-02-23] MEDS: IPRATROPIUM-ALBUTEROL 3 ML NEB INHALATION SCH (07:20)
[2016-02-23 07:33] VITALS: BP 136/76; PULSE 78; TEMP 99.2
[2016-02-23] MEDS: INSULIN LISPRO (humaLOG) 300 UNIT/3 ML VIAL SQ SCH (07:44)
[2016-02-23 07:48] VITALS: BMI 24.6
[2016-02-23] MEDS: FOLIC ACID-VIT B COMPLEX-VIT C 1 CAP PO SCH (08:07)
[2016-02-23] MEDS: HYDROcodone/APAP 7.5-325MG 1 EACH TAB PO PRN (08:08)
[2016-02-23] MEDS: FUROSEMIDE 40 MG TAB PO SCH (08:08)
[2016-02-23] MEDS: PARoxetine 10 MG TAB PO SCH (08:08)
[2016-02-23] MEDS: PIPERACILLIN-TAZOBACTAM 3.375 GM in DEXTROSE/WATER 1 50ML.BAG IVPB SCH (09:39)
--- NOTE | 2016-02-24 05:26 | PN ---
Patient is seen for followup for end-stage renal disease. He is currently being discharged and will follow up for dialysis as outpatient tomorrow. Vital signs are reviewed. Blood pressure has been 145 to 136 mmHg systolic, heart rate about 78 per minute. The patient is afebrile. He appears fairly euvolemic with no evidence of edema. Abdomen remains soft, nontender. ASSESSMENT: 1. End-stage renal disease on hemodialysis on a Sunday, , Sunday schedule via left arm AV fistula. 2. Status post right above-knee amputation. 3. Chronic kidney disease bone mineral disorder. Continue phosphate binders. 4. Peripheral vascular disease with evidence of gangrene on the right foot at the time of admission. PLAN: The patient is stable for discharge from nephrology standpoint. He will follow up tomorrow as outpatient for dialysis.
--- NOTE | 2016-02-24 12:52 | PN ---
DATE OF SERVICE: 02/22/2016 This 66-year-old gentleman admitted with sepsis and slated to go to [facility] at this time. No chest pain or palpitation. Seen and evaluated the patient with the nurse practitioner. Please see the nurse practitioner's notes and impression document as ascribed for further information. Guarded prognosis. Further recommendations to follow.
--- NOTE | 2016-02-24 16:59 | P.PN ---
Subjective Date of service 02/22/16 Progress note being dictated for Dr. Dykes. Interval history: This a 66-year-old gentleman admitted with severe sepsis, bacteremia, secondary to right lower extremity decubitus ulcer, status post AKA , acute CHF exacerbation, acute hypoxic respiratory failure and multiple other medical issues in a patient with end-stage kidney disease on hemodialysis. IV Antibiotics continue as per infectious disease. Breathing continues to improve on Lasix . Denies cough Denies chest pain, palpitations. Pain controlled. Afebrile. Awaiting discharge to ECF rehab. after hemodialysis completed today. Objective - Vital Signs Vital signs: Vital Signs Temp 99.2 F 02/23/16 07:00 Pulse 78 02/23/16 08:00 Resp 16 02/23/16 08:00 BP 136/76 02/23/16 07:00 Pulse Ox 100 02/23/16 07:00 Intake & Output 02/23/16 02/23/16 02/24/16 06:59 18:59 06:59 Intake Total 240 Output Total 0 Balance 240 Weight 78 kg 78 kg Intake: Oral 240 Output: Stool 0 Other: Voiding Method Urinal Urinal # Voids 0 - Exam PHYSICAL EXAM: VITAL SIGNS: Temperature 98.3, pulse 82, rest rate 18, blood pressure 143/75, O2 sat 97% on 2 L nasal cannula. GENERAL: [Sitting up in chair, no acute distress HEENT: [Pupils equal, conjunctiva normal.] NECK: [Supple, no JVD] RESPIRATORY EFFORT:[Normal] LUNGS: Continued Improved air entry, Bibasilar crackles, greater on the right, no wheezing ] CARDIOVASCULAR[regular S1 and S2, positive systolic murmur,] GI: [Abdomen soft, nontender, positive bowel sounds.] PSYCH: [Alert and oriented -3, mood and affect normal.] SKIN: Left arm with shunt, Left BKA, right AKA dressing clean dry and intact. NEURO: No focal deficits Microbiology 02/09/16 22:23 Blood Blood Culture - Final No Growth after 144 hours 02/08/16 18:17 Blood Blood Culture - Final 02/08/16 18:17 Heel - Right Gram Stain - Final 02/08/16 18:17 Heel - Right Wound Culture - Final Providencia rettgeri Alcaligenes species 02/08/16 18:17 Blood Blood Culture Gram Stain - Final 02/08/16 18:17 Blood Blood Culture - Final Staph hominis sub sp. hominis Proteus vulgaris - Labs CBC & Chem 7: 02/20/16 07:48 02/20/16 07:48 Assessment and Plan Plan: 1. [Severe Sepsis with bacteremia;Staphylococcus hominis in Proteus vulgaris secondary to right lower extremity decubitus ulcer growing providencia rettgeri and Alcaligenes species, status post right AKA]. 2. [Diabetes mellitus type 2]. 3. [Acute on chronic congestive heart failure, systolic dysfunction, EF 35-40%]. 4. 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 5. [Hypertension]. 6. [Hypokalemia, resolved]. 7. [Chronic Anemia secondary to chronic kidney disease]. 8. Severe peripheral vascular disease 9. Acute hypoxic respiratory failure secondary to fluid overload, possible bilateral pneumonia per chest x-ray 10. Moderate to severe pulmonary hypertension Plan: Continue on current medication regime , Lasix, nebulized bronchodilators, vancomycin, Zosyn, monitoring and symptomatic treatment. Strict CHF pathway. Hemodialysis as per nephrology. PT/OT . Discharge planning in progress for ECF rehab. After hemodialysis. The impression and plan of care has been dictated as directed. : I performed a H&P examination of this patient and discussed the same with the dictator. I agree with the dictator's note. Any additional findings/opinions/ etc. will be noted.
--- NOTE | 2016-02-24 21:27 | DS ---
DATE OF ADMISSION: 02/08/2016 DATE OF DISCHARGE: 02/23/2016 ADDENDUM: This 66-year-old gentleman admitted with acute severe sepsis and bacteremia also had recent surgery. The patient slated to go to ECF at this time after hemodialysis. Seen and evaluated the patient. Currently vital signs stable. Cardiovascular: S1, S2 muffled. Respiratory: Breath sounds diminished at breath sounds. No rhonchi. No crackles. Central nervous system: No focal deficits. Please refer to my previous dictation for detailed discharge diagnosis and recommendations. Total time taken is 35 minutes.
--- NOTE | 2016-02-29 10:12 | CDI ---
In responding to this query, please exercise your independent professional judgment. The [facility] Coding Staff and Clinical Documentation Specialists appreciate your assistance in clarifying documentation, maintaining compliance with coding guidelines, accurately documenting patients condition and capturing severity of illness. The fact that a question is asked does not imply that any particular answer is desired or expected. Communication forms are a method of clarifying documentation and are not made part of the Legal Health Record. Thank you in advance for your clarification. Last Revision, April 2015 Yemi Lizarraga [address] [address] Documentation Clarification Form Date: 02/17/2016 11:52:00 AM From: Ankita Robin Admit Date: 02/08/2016 8:29:00 PM Patient Name: Foster Palmer I Visit Number: [id number] Discharge Date: Dr. 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 Qualifier 1 High: Amputation at the proximal portion of the shaft of the femur Qualifier 2 Mid: Amputation at the middle portion of the shaft of the femur Qualifier 3 Low: amputation at the distal portion of the shaft of the femur Treatment: Above the knee amputation In order to capture the severity of condition, please specify the following: For the Above the Knee Amputation was it: High Mid Low Please document as an addendum to your operative report in order to capture severity of illness and risk of mortality. FYI: Press F11 to launch patient chart Place X here if this finding has no clinical significance, is not applicable or if you are not able to provide any additional documentation. VIVIANA
--- NOTE | 2016-03-06 10:02 | CDI ---
In responding to this query, please exercise your independent professional judgment. The [facility] Coding Staff and Clinical Documentation Specialists appreciate your assistance in clarifying documentation, maintaining compliance with coding guidelines, accurately documenting patients condition and capturing severity of illness. The fact that a question is asked does not imply that any particular answer is desired or expected. Communication forms are a method of clarifying documentation and are not made part of the Legal Health Record. Thank you in advance for your clarification. Last Revision, April 2015 Yemi Lizarraga [address] [place] [address] Documentation Clarification Form Date: 02/17/2016 11:52:00 AM From: Ankita Robin Admit Date: 02/08/2016 8:29:00 PM Patient Name: Foster Palmer I Visit Number: [id number] Discharge Date: Dr. 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 Qualifier 1 High: Amputation at the proximal portion of the shaft of the femur Qualifier 2 Mid: Amputation at the middle portion of the shaft of the femur Qualifier 3 Low: amputation at the distal portion of the shaft of the femur Treatment: Above the knee amputation In order to capture the severity of condition, please specify the following: For the Above the Knee Amputation was it: High Mid Low Please document as an addendum to your operative report in order to capture severity of illness and risk of mortality. FYI: Press F11 to launch patient chart Place X here if this finding has no clinical significance, is not applicable or if you are not able to provide any additional documentation. VIVIANA
--- NOTE | 2016-03-07 05:59 | OP ---
DATE OF SERVICE: SURGEON: MARLENI GONZALEZ MD ADDENDUM: The patient had an [id number]. The level of amputation was mid amputation of the femur.
== END 2016-02-23 11:14 | DRG 853 ==
LOC: EC 17:17 → 4MS4W 20:29 → UNDODISIN 02-13 10:00
PROVIDERS: ADMIT Internal Medicine; ATTEND Internal Medicine
PROC: 05PYX3Z Removal of Infusion Device from Upper Vein, External Approach (ICD-10-PCS; 2016-02-10)
PROC: 5A1D60Z (ICD-10-PCS; principal; 2016-02-11)
PROC: 0Y6H0Z2 Detachment at Right Lower Leg, Mid, Open Approach (ICD-10-PCS; 2016-02-15)
DX: A41.2 Sepsis due to unspecified staphylococcus (principal); G93.41 Metabolic encephalopathy; J96.01 Acute respiratory failure with hypoxia; I50.23 Acute on chronic systolic (congestive) heart failure; J18.9 Pneumonia, unspecified organism; N18.6 End stage renal disease; E11.52 Type 2 diabetes mellitus with diabetic peripheral angiopathy with gangrene; I12.0 Hypertensive chronic kidney disease with stage 5 chronic kidney disease or end stage renal disease; I42.9 Cardiomyopathy, unspecified; L97.419 Non-pressure chronic ulcer of right heel and midfoot with unspecified severity; L03.90 Cellulitis, unspecified; E11.21 Type 2 diabetes mellitus with diabetic nephropathy; I27.2 Other secondary pulmonary hypertension; E11.40 Type 2 diabetes mellitus with diabetic neuropathy, unspecified; D63.1 Anemia in chronic kidney disease; E11.22 Type 2 diabetes mellitus with diabetic chronic kidney disease; E11.621 Type 2 diabetes mellitus with foot ulcer; E78.5 Hyperlipidemia, unspecified; E87.5 Hyperkalemia; E87.6 Hypokalemia; F32.9 Major depressive disorder, single episode, unspecified; I44.7 Left bundle-branch block, unspecified; I48.91 Unspecified atrial fibrillation; I70.234 Atherosclerosis of native arteries of right leg with ulceration of heel and midfoot; K76.9 Liver disease, unspecified; L97.519 Non-pressure chronic ulcer of other part of right foot with unspecified severity; L97.529 Non-pressure chronic ulcer of other part of left foot with unspecified severity; L89.899 Pressure ulcer of other site, unspecified stage; M89.9 Disorder of bone, unspecified; R65.20 Severe sepsis without septic shock; Z82.49 Family history of ischemic heart disease and other diseases of the circulatory system; Z89.512 Acquired absence of left leg below knee; Z99.2 Dependence on renal dialysis
CPT/HCPCS: 36415; 71010; 71020; 80048; 80051; 80053; 80202; 82550; 82553; 83036; 83605; 83735; 84100; 84484; 85025; 85027; 85610; 85730; 86705; 86706; 86850; 86900; 86901; 86920; 87040; 87070; 87077; 87186; 87205; 87340; 88307; 88311; 90935; 93005; 94640; 94760; 96365; 99285

== ENCOUNTER 2016-05-10 11:58 | Emergency (ER) | payer MEDICARE, BC ==
[2016-05-10] MEDS ORDERED: ONDANSETRON 4 MG/2 ML VIAL IVP STA (12:10)
[2016-05-10] MEDS ORDERED: SODIUM CHLORIDE 0.9% 500 ML IV STA (12:10)
[2016-05-10 12:29] LABS: Glucose,Whole Blood 122 mg/dL (75-99)
[2016-05-10] MEDS ORDERED: METOPROLOL TARTRATE 25 MG TAB PO STA (12:31)
--- NOTE | 2016-05-10 12:31 | ED ---
General Adult HPI - General Chief complaint: Nausea/Vomiting/Diarrhea Stated complaint: nausea/vomiting Time Seen by Provider: 05/10/16 12:01 Source: patient, EMS, RN notes reviewed, old records reviewed Mode of arrival: EMS Limitations: physical limitation - History of Present Illness Initial comments: 66-year-old male presenting for nausea and vomiting. Patient states he woke up around 4 AM feeling nauseous and has vomited multiple times since then. He denies any chest pain or shortness of breath associated. He does state some mild epigastric pain associated. He denies any fevers or chills. He denies any known sick contacts. He has not tried taking any medications for symptoms at this time. He does state that he has a history of end-stage renal disease and gets dialysis Sunday, , and Sunday. He denies missing any dialysis treatments. - Related Data Home Medications Medication Instructions Recorded Confirmed Furosemide 40 mg PO BID 02/18/14 05/10/16 Lisinopril 5 mg PO DAILY 02/18/14 05/10/16 Metoprolol Tartrate [Lopressor] 25 mg PO DAILY 02/08/16 05/10/16 HYDROcodone/APAP 7.5-325MG [[place] 1 tab PO Q6H PRN 05/10/16 05/10/16 7.5-325] Ipratropium-Albuterol Nebulize 3 ml INHALATION RT-QID PRN 05/10/16 05/10/16 [Duoneb 0.5 mg-3 mg/3 ml Soln] Lidocaine-Prilocaine Cream [Emla 1 applic TOPICAL DAILY PRN 05/10/16 05/10/16 Cream 2.5%/2.5%] Previous Rx's Medication Instructions Recorded Ondansetron Odt [Zofran Odt] 4 mg PO Q8HR PRN #12 tab 05/10/16 Allergies Allergy/AdvReac Type Severity Reaction Status Date / Time No Known Allergies Allergy Verified 05/10/16 12:22 Review of Systems ROS Statement: Those systems with pertinent positive or pertinent negative responses have been documented in the HPI. ROS Other: All systems not noted in ROS Statement are negative. Past Medical History Past Medical History: Diabetes Mellitus, Dialysis, Hypertension, Liver Disease, Renal Disease, Vascular Disorder Additional Past Medical History / Comment(s): Other HX: Hemodialysis. 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 Update pt R TEDDY Feb 14 2016 History of Any Multi-Drug Resistant Organisms: None Reported Past Surgical History: Adenoidectomy, Orthopedic Surgery, Tonsillectomy Additional Past Surgical History / Comment(s): L BKA, Rt Above knee amputation, Fistula L forearm for hemodialysis Past Anesthesia/Blood Transfusion Reactions: No Reported Reaction Past Psychological History: No Psychological Hx Reported Additional Psychological History / Comment(s): Pt lives alone in home. He has a L lower leg prosthesis. Smoking Status: Never smoker Past Alcohol Use History: None Reported Past Drug Use History: None Reported - Past Family History Father Family Medical History: Coronary Artery Disease (CAD) Additional Family Medical History / Comment(s): Father is . He lived to the age of 90 yrs. Mother Family Medical History: No Reported History Additional Family Medical History / Comment(s): Mother is . She lived to the age of 87 yrs. General Exam - General Exam Comments Initial Comments: General: Awake and Alert. No acute distress. Does not appear acutely ill. Eyes: SUNITA, EOM intact. No nystagmus. No scleral icterus. HENT: Atraumatic, normocephalic. Mucous membranes moist. Trachea midline. Neck: The neck is supple, there is no tenderness or JVD. Cardiovascular: Regular rate and rhythm. No murmur, rub, or gallop is appreciated. Distal pulses intact. Respiratory: Lungs are clear to auscultation bilaterally. No wheezes, rales, rhonchi. No respiratory distress. Gastrointestinal: Soft, mild epigastric tenderness. No rebound or guarding. Non -distended. No masses or organomegaly noted. No CVA tenderness. Musculoskeletal: No tenderness. Normal ROM. No gross deformity. No strength deficits. B/L LE amputations. Neurological: A&Ox3. CN II-XII grossly intact, There are no obvious motor or sensory deficits. Coordination appears grossly intact. Speech is normal. Skin: Skin is warm and dry and no rashes or lesions are noted. Psychiatric: Cooperative, appropriate mood & affect, normal judgment. Limitations: physical limitation Course Vital Signs 05/10/16 05/10/16 05/10/16 12:04 12:28 14:14 Temperature 97.3 F L Pulse Rate 85 74 84 Respiratory 18 16 16 Rate Blood Pressure 229/103 181/86 162/82 O2 Sat by Pulse 96 95 100 Oximetry 05/10/16 15:07 Temperature 97.5 F L Pulse Rate 79 Respiratory 18 Rate Blood Pressure 162/86 O2 Sat by Pulse 100 Oximetry EKG Findings - EKG Comments: EKG Findings:: EKG 12:18. A. fib. Rate 81. Left axis deviation. Left bundle branch block. No STEMI. Abnormal EKG. Similar to prior EKG 02/08/2016. Medical Decision Making - Medical Decision Making 66-year-old male presenting for nausea and vomiting. Initial vital stable, afebrile. Hypertension noted, improved after improvement of nausea and vomiting. Patient given IV fluids and antiemetics. Reevaluated and states he is feeling significantly improved. Lab work is grossly unremarkable, with exception of evidence of chronic renal failure. There are no significant electrolyte abnormalities at this time requiring admission for dialysis. Influenza was negative. Discussed possible gastroenteritis. Discussed plan to treat with Rx for Zofran and discussed staying well-hydrated. Patient states he feels comfortable going home at this time. States he plans to go to dialysis tomorrow. Discussed concerning signs symptoms requiring immediate return to the ED. Discussed close follow-up with PCP. Patient is agreeable with plan and discharge. - Lab Data Result diagrams: 05/10/16 12:20 05/10/16 12:20 Lab Results 05/10/16 05/10/16 05/10/16 Range/Units 12:09 12:20 12:20 WBC 4.9 (3.8-10.6) k/uL RBC 3.88 L (4.30-5.90) m/uL Hgb 11.8 L (13.0-17.5) gm/dL Hct 36.7 L (39.0-53.0) % MCV 94.6 (80.0-100.0) fL MCH 30.4 (25.0-35.0) pg MCHC 32.2 (31.0-37.0) g/dL RDW 15.8 H (11.5-15.5) % Plt Count 156 (150-450) k/uL Neutrophils % 76 % Lymphocytes % 10 % Monocytes % 7 % Eosinophils % 5 % Basophils % 0 % Neutrophils # 3.7 (1.3-7.7) k/uL Lymphocytes # 0.5 L (1.0-4.8) k/uL Monocytes # 0.3 (0-1.0) k/uL Eosinophils # 0.2 (0-0.7) k/uL Basophils # 0.0 (0-0.2) k/uL Sodium 142 (137-145) mmol/L Potassium 3.9 (3.5-5.1) mmol/L Chloride 97 L (98-107) mmol/L Carbon Dioxide 30 (22-30) mmol/L Anion Gap 15 mmol/L BUN 20 (9-20) mg/dL Creatinine 4.30 H (0.66-1.25) mg/dL Est GFR (MDRD) Af Amer 17 (>60 ml/min/1.73 sqM) Est GFR (MDRD) Non-Af 14 (>60 ml/min/1.73 sqM) Glucose 139 H (74-99) mg/dL POC Glucose (mg/dL) 122 H (75-99) mg/dL POC Glu Sr. [employer] System Administrator ID Lacy Connor Calcium 10.1 (8.4-10.2) mg/dL Magnesium 2.2 (1.6-2.3) mg/dL Total Bilirubin 1.0 (0.2-1.3) mg/dL AST 28 (17-59) U/L ALT 45 (21-72) U/L Alkaline Phosphatase 183 H (38-126) U/L Total Protein 7.6 (6.3-8.2) g/dL Albumin 4.0 (3.5-5.0) g/dL Lipase 63 (23-300) U/L Influenza Type A RNA (Not Detectd) Influenza Type B (PCR) (Not Detectd) 05/10/16 Range/Units 12:22 WBC (3.8-10.6) k/uL RBC (4.30-5.90) m/uL Hgb (13.0-17.5) gm/dL Hct (39.0-53.0) % MCV (80.0-100.0) fL MCH (25.0-35.0) pg MCHC (31.0-37.0) g/dL RDW (11.5-15.5) % Plt Count (150-450) k/uL Neutrophils % % Lymphocytes % % Monocytes % % Eosinophils % % Basophils % % Neutrophils # (1.3-7.7) k/uL Lymphocytes # (1.0-4.8) k/uL Monocytes # (0-1.0) k/uL Eosinophils # (0-0.7) k/uL Basophils # (0-0.2) k/uL Sodium (137-145) mmol/L Potassium (3.5-5.1) mmol/L Chloride (98-107) mmol/L Carbon Dioxide (22-30) mmol/L Anion Gap mmol/L BUN (9-20) mg/dL Creatinine (0.66-1.25) mg/dL Est GFR (MDRD) Af Amer (>60 ml/min/1.73 sqM) Est GFR (MDRD) Non-Af (>60 ml/min/1.73 sqM) Glucose (74-99) mg/dL POC Glucose (mg/dL) (75-99) mg/dL POC Glu Sr. [employer] System Administrator ID Calcium (8.4-10.2) mg/dL Magnesium (1.6-2.3) mg/dL Total Bilirubin (0.2-1.3) mg/dL AST (17-59) U/L ALT (21-72) U/L Alkaline Phosphatase (38-126) U/L Total Protein (6.3-8.2) g/dL Albumin (3.5-5.0) g/dL Lipase (23-300) U/L Influenza Type A RNA Not Detected (Not Detectd) Influenza Type B (PCR) Not Detected (Not Detectd) - EKG Data -: EKG Interpreted by Me EKG shows normal: sinus rhythm Rate: normal When compared to previous EKG there are: no significant change Interpretation: no acute changes, unchanged when compared to prior tracing (date ) Disposition Clinical Impression: Nausea and vomiting, ESRD (end stage renal disease), HTN (hypertension) Disposition: HOME SELF-CARE Condition: Stable Instructions: Acute Nausea and Vomiting (ED), Chronic Hypertension (ED) Additional Instructions: Please make sure you go to dialysis tomorrow. Prescriptions: Ondansetron Odt [Zofran Odt] 4 mg PO Q8HR PRN #12 tab PRN Reason: Nausea Referrals: Chiquis Leyva MD [Primary Care Provider] - 1-2 days Time of Disposition: 14:58
[2016-05-10 12:43] LABS: Basophils % (A) 0 %; CH 30.2; CHCM 32.1; Eosinophils # (A) 0.2 k/uL (0-0.7); Eosinophils % (A) 5 %; HCT 36.7 % (39.0-53.0); HGB 11.8 gm/dL (13.0-17.5); Luc # (Auto) 0.12; Luc % (Auto) 2; Lymphocytes # (A) 0.5 k/uL (1.0-4.8); Lymphocytes % (A) 10 %; MCH 30.4 pg (25.0-35.0); MCHC 32.2 g/dL (31.0-37.0); MCV 94.6 fL (80.0-100.0); Mean Platelet Volume 7.5; Monocytes # (A) 0.3 k/uL (0-1.0); Monocytes % (A) 7 %; Neutrophils # (A) 3.7 k/uL (1.3-7.7); Neutrophils % (A) 76 %; RBC 3.88 m/uL (4.30-5.90); RDW 15.8 % (11.5-15.5); WBC 4.9 k/uL (3.8-10.6); WBC (Perox) 4.81
[2016-05-10 12:56] LABS: Calcium 10.1 mg/dL (8.4-10.2); Magnesium 2.2 mg/dL (1.6-2.3); Potassium 3.9 mmol/L (3.5-5.1); Total Protein 7.6 g/dL (6.3-8.2)
[2016-05-10 15:11] VITALS: BP 162/86; PULSE 79; RESP 18; TEMP 97.5
== END 2016-05-10 15:31 | disposition home or self-care (01) ==
LOC: EC 11:58
DX: I12.0 Hypertensive chronic kidney disease with stage 5 chronic kidney disease or end stage renal disease (principal); N18.6 End stage renal disease; R10.13 Epigastric pain; Z79.899 Other long term (current) drug therapy; Z99.2 Dependence on renal dialysis
CPT/HCPCS: 99284 ×2; 96374 ×2; 96361 ×3; 36415; 93005; 80053; 83690; 83735; 85025; 87502; J2405